=== PATIENT | female | born 1965 | race Two or more races ===

== ENCOUNTER 2020-01-20 17:35 | Inpatient (IN) | payer MEDICAID ==
[~2020-01-20] VITALS: Ht 160 cm; Wt 100.7 kg
--- NOTE | 2020-01-20 17:35 | NUR ---
PT BIB SELF C/O ABDOMINAL PAIN, NAUSEA/VOMITING. PT IS AAOX4, NOT IN RESPIRATORY DISTRESS, HOOKED TO EXTRUSION DIE TEMPLATE MAKER, KEPT RESTED AND COMFORTABLE. WILL CONTINUE TO MONITOR.
--- NOTE | 2020-01-20 17:45 | NUR ---
SEEN AND EXAMINED BY .
[2020-01-20] MEDS ORDERED: ONDANSETRON HCL/PF 4 MG/2 ML VIAL ONE (17:51)
--- NOTE | 2020-01-20 17:55 | NUR ---
IV LINE ESTABLISHED BLOOD DRAWN AND SENT TO LAB.
--- NOTE | 2020-01-20 17:58 | NUR ---
PAINT STRIPPER AT BEDSIDE FOR XRAY.
[2020-01-20] MEDS ORDERED: ONDANSETRON HCL/PF 4 MG/2 ML VIAL IVP ONE (18:00)
[2020-01-20] MEDS ORDERED: IV NS 0.9% 1,000 ML BAG IV ONE (18:00)
[2020-01-20 18:09] LABS: BASOPHILS % (AUTO) 0.7 % (0.0-2.0); EOSINOPHILS % (AUTO) 0.2 % (0.0-6.0); HEMATOCRIT 45 % (33-45); HEMOGLOBIN 15.5 g/dL (11.5-14.8); LYMPHOCYTES # (AUTO) 1.5 /CMM (0.8-4.8); LYMPHOCYTES % (AUTO) 31.2 % (20.0-44.0); MEAN CORPUSCULAR HGB CONC 35 g/dl (31.0-36.0); MEAN CORPUSCULAR VOLUME 87 fL (82-100); MONOCYTES # (AUTO) 0.6 /CMM (0.1-1.30); MONOCYTES % (AUTO) 12.4 % (2.0-12.0); NEUTROPHILS # (AUTO) 2.7 /CMM (1.8-8.9); NEUTROPHILS % (AUTO) 55.5 % (43.0-81.0); PLATELET COUNT (AUTO) 208 /CMM (150-450); WHITE BLOOD COUNT (AUTO) 4.9 K/uL (4.3-11.0)
[2020-01-20 18:17] LABS: ALBUMIN 3.6 g/dL (3.4-5.0); BILIRUBIN,DIRECT 0.4 mg/dL (0.0-0.2); BILIRUBIN,TOTAL 1.1 mg/dL (0.2-1.0); CALCIUM, SERUM 8.3 mg/dL (8.5-10.1); CREATININE 0.8 mg/dL (0.6-1.3); TOTAL PROTEIN, SERUM 8.1 g/dL (6.4-8.2)
[2020-01-20] MEDS ORDERED: METOPROLOL TARTRATE INJ 5 MG/5 ML AMPUL ONE (18:26)
[2020-01-20 18:27] LABS: POTASSIUM 2.4 mmol/L (3.5-5.1)
[2020-01-20] MEDS ORDERED: METOPROLOL TARTRATE INJ 5 MG/5 ML AMPUL IV ONE (18:30)
[2020-01-20] MEDS ORDERED: METO25TA20 PO (18:42)
[2020-01-20] MEDS ORDERED: LATA2.5D7 EACHEYE (18:42)
[2020-01-20] MEDS ORDERED: METF-440 PO (18:42)
[2020-01-20] MEDS ORDERED: HYDR200T4 PO (18:42)
[2020-01-20] MEDS ORDERED: OMEP40CA13 PO (18:42)
[2020-01-20] MEDS ORDERED: LEFL10TA16 PO (18:42)
[2020-01-20] MEDS ORDERED: SILD20TA2 PO (18:42)
--- NOTE | 2020-01-20 18:48 | NUR ---
called nursing supervisor wet end for tele bed.
[2020-01-20] MEDS ORDERED: POTASSIUM CHLORIDE 20 MEQ TAB.PRT.SR PO ONE ×3 (18:53→23:00)
[2020-01-20] MEDS ORDERED: METOPROLOL TARTRATE 25 MG TABLET ONE (18:53)
[2020-01-20] MEDS ORDERED: METOPROLOL TARTRATE 25 MG TABLET PO ONE (19:00)
--- NOTE | 2020-01-20 19:08 | NUR ---
REPORT GIVEN TO MASOOD CAMACHO FOR TERRI.
--- NOTE | 2020-01-20 19:21 | NUR ---
PT RESTING COMFORTABLY. VSS. NO ACUTE DISTRES NOTED. PROVIDED WITH BLANKET.
[2020-01-20 19:40] LABS: THYROID STIMULATING HORMONE 2.157 uIU/mL (0.358-3.74)
--- NOTE | 2020-01-20 19:47 | NUR ---
PT DENIES PAIN. RESTING COMFORTABLY.
--- NOTE | 2020-01-20 19:54 | NUR ---
BED ASSIGNMENT 102
--- NOTE | 2020-01-20 20:14 | NUR ---
REC'D POS COVID RESULTS BY POLO FROM LAB
--- NOTE | 2020-01-20 20:27 | NUR ---
REPORT GIVEN FOR TERRI
--- NOTE | 2020-01-20 20:53 | NUR ---
DR. PADILLA SPEAKING WITH HOSPITALIST
[2020-01-20 21:00] VITALS: BP 109/63
--- NOTE | 2020-01-20 21:00 | NUR ---
TELE/RN NEW ADMISSION NOTES RECEIVED PATIENT IS A 54 Y.O OBESE MALAWIAN SPEAKING FEMALE PATIENT, ALERT, ORIENTED X3, OBSERVED WITH LABORED BRETHING AND TELE MONITOR UNCONTROLLED AFIB WITH MURMUR, PATIENT ABLE TO VERBALIZE NEEDS, ABLE TO GO TO BATHROOM WITH ASSISTANCE, ON OXYGEN VIA NC AT 2 LITER, WITH DX FOR COVID POSITIVE, HAD NAUSEA AND VOMITING AND HYPOKALEMIA, ON CONTACT ISOLATION FOR COVID POSITIVE RESULT, AWAITING FOR ORDER, HOME MEDICATION TO BE RECONCILED, PATIENT BELONGINGS CHECK, SKIN INTACT, VITAL SIGNS CHECK AND WITH NO FEVER, PATIENT NOT HAVING NAUSEA AND VOMITING AT THIS TIME, ABLE TO USE PHONE AND TALK WITH FAMILY MEMBERS. ROOM ORIENTATION PROVIDED, MALAWIAN PREFERED LANGUAGE. BED LOCKED, CALL LIGHTS WITHIN REACH. TO MONITOR.
--- NOTE | 2020-01-20 21:05 | NUR ---
MS/RN NOTES ADMITTING MD JAMA SURESH FOR ADMISSION ORDERS.
--- NOTE | 2020-01-20 21:05 | NUR ---
TELE/RN NOTES IV SITE ON RIGHT WRIST GAUGE 18 PATENT , ABLE TO FLUSH.
--- NOTE | 2020-01-20 21:07 | NUR ---
PT TRANSFERED PER ACLS PROTOCOL
[2020-01-20 21:18] VITALS: BP 138/87
[2020-01-20 22:13] VITALS: BP 138/87
[2020-01-20] MEDS ORDERED: ZOLPIDEM TARTRATE 5 MG TABLET PO PRN (23:00)
[2020-01-20] MEDS ORDERED: Z GUARD REMEDY 2 OZ OINT TP PRN (23:00)
[2020-01-20] MEDS ORDERED: ENOXAPARIN SODIUM 40 MG/0.4 ML DISP.SYRIN SQ SCH (23:00)
[2020-01-20] MEDS ORDERED: ALBUTEROL SULFATE 8 GM HFA.AER.AD IH PRN (23:00)
[2020-01-20] MEDS ORDERED: ONDANSETRON 4 MG TAB.RAPDIS SL PRN (23:00)
[2020-01-20] MEDS ORDERED: ACETAMINOPHEN 325 MG TABLET PO PRN (23:00)
[2020-01-20] MEDS ORDERED: HYDROCODONE/APAP 5/325MG 1 EACH TABLET PO PRN (23:00)
[2020-01-20] MEDS: ZINC SULFATE 220 MG CAPSULE PO SCH (23:28)
[2020-01-21] VITALS: BP 118/65
--- NOTE | 2020-01-21 | NUR ---
ms/rn notes MD SURESH MADE AWARE REGADING IV 20 MEQ POTASSIUM IV AVAILABLE , INSTEAD OF 40 MEQ IV POTASSIUM IN 1 LITER BAG, TO ADMINISTER FOR NOW. PATIENT ALSO VERBALZIED THAT SHE HAS RHEUMATOID ARTHRITIS RECEIVING CARE UNDER DR. VIV DIEHL AND BORDERLINE DIABETIC WITH METFORMIN DAILY.
[2020-01-21] MEDS: DEXAMETHASONE SOD PHOSPHATE 10 MG/ML VIAL IV SCH ×2 (00:01→23:01)
[2020-01-21] MEDS ORDERED: IV PREMIX NS +20MEQ KCL 1 L IV ONE (01:00)
[2020-01-21] MEDS ORDERED: Potassium Chloride 20 MEQ in IV NS 0.9% 1,000 ML IV PRN (01:00)
[2020-01-21] MEDS ORDERED: ACETAMINOPHEN 325 MG TABLET PO PRN (01:00)
[2020-01-21 04:00] VITALS: BP 114/78
--- NOTE | 2020-01-21 06:17 | NUR ---
102-TELE/RN NOTES PATIENT IN BED, ALERT X3, GUYANESE SPEAKING, SLEPT FEW HOURS, COMPLIANT WITH CARE. ATTENDED ALL NEEDS, KEPT COMFORTABLE, ON IV FLUID WITH POTASSIUM, RESPIRATIONS EVEN AND UNLABORED, BED LOCKED, CALL LIGHTS WITHIN REACH. TELE AFIB.WILL ENDORSE TO AM RN FOR TERRI.
[2020-01-21 06:50] LABS: BASOPHILS % (AUTO) 0.1 % (0.0-2.0); HEMATOCRIT 43 % (33-45); HEMOGLOBIN 14.5 g/dL (11.5-14.8); LYMPHOCYTES # (AUTO) 0.8 /CMM (0.8-4.8); LYMPHOCYTES % (AUTO) 19.6 % (20.0-44.0); MEAN CORPUSCULAR HGB CONC 34 g/dl (31.0-36.0); MEAN CORPUSCULAR VOLUME 88 fL (82-100); MONOCYTES # (AUTO) 0.2 /CMM (0.1-1.30); MONOCYTES % (AUTO) 4.1 % (2.0-12.0); NEUTROPHILS # (AUTO) 2.9 /CMM (1.8-8.9); NEUTROPHILS % (AUTO) 76.2 % (43.0-81.0); PLATELET COUNT (AUTO) 197 /CMM (150-450); RED BLOOD CELL COUNT(AUTO) 4.84 MIL/uL (4.0-5.2); WHITE BLOOD COUNT (AUTO) 3.9 K/uL (4.3-11.0)
[2020-01-21 06:57] LABS: C-REACTIVE PROTEIN 2.5 mg/dL (0.0-0.9)
[2020-01-21 07:03] LABS: ALBUMIN 3.4 g/dL (3.4-5.0); BILIRUBIN,TOTAL 0.8 mg/dL (0.2-1.0); CALCIUM, SERUM 8.2 mg/dL (8.5-10.1); CREATININE 0.6 mg/dL (0.6-1.3); PHOSPHORUS 2.8 mg/dL (2.5-4.9); POTASSIUM 3.3 mmol/L (3.5-5.1); TOTAL PROTEIN, SERUM 7.8 g/dL (6.4-8.2)
--- NOTE | 2020-01-21 07:30 | NUR ---
RN OPENING NOTES RECEIVED PATIENT IN BED, A/OX4. EMIRATI AND ETHIOPIAN SPEAKER, SWITCHED HER ON RA, TOLERATING WELL WITH O2 SAT OF 96%, NO SOB, PAIN, OR RESP DISTRESS NOTED. REDDENS ON ABDOMEN AND LEGS NOTED, PATIENT IS AMBULATORY W/ASSISTANCE, IV R HAND NOTED, INTACT AND PATENT. SAFETY MEASURES IMPLEMENTED, CALL LIGHT IN REACH, BED IN LOWEST POSITION, WILL CONT TO MONITOR
[2020-01-21] MEDS: PANTOPRAZOLE 40 MG TABLET.DR PO SCH (07:50)
[2020-01-21 08:00] VITALS: BP 127/86
[2020-01-21 08:28] LABS: THYROID STIMULATING HORMONE 0.692 uIU/mL (0.358-3.74)
[2020-01-21] MEDS: METOPROLOL TARTRATE 25 MG TABLET PO SCH ×2 (08:30→17:24)
[2020-01-21] MEDS: ASPIRIN EC 81 MG TABLET.DR PO SCH (08:31)
[2020-01-21] MEDS: ZINC SULFATE 220 MG CAPSULE PO SCH (08:31)
[2020-01-21] MEDS: HYDROXYCHLOROQUINE 200 MG TABLET PO SCH ×2 (08:31→17:24)
[2020-01-21] MEDS: SILDENAFIL CITRATE 20 MG TABLET PO SCH ×2 (08:34→21:19)
[2020-01-21] MEDS ORDERED: LEFLUNOMIDE 10 MG TABLET PO SCH ×2 (09:00→10:00)
[2020-01-21] MEDS: LEFLUNOMIDE 10 MG TABLET PO SCH (10:05)
[2020-01-21] MEDS ORDERED: DEXTROSE 50%-WATER 50 ML DISP.SYRIN IV PRN (11:00)
[2020-01-21] MEDS: DILTIAZEM HCL CD 240 MG PO SCH (11:39)
[2020-01-21] MEDS: ENOXAPARIN SODIUM 100 MG/ML DISP.SYRIN SQ SCH ×2 (11:40→22:36)
[2020-01-21] MEDS: BLOOD SUGAR DIAGNOSTIC 1 EACH STRIP IN SCH ×3 (11:41→22:00)
[2020-01-21 12:00] VITALS: BP 116/66
[2020-01-21] MEDS: INSULIN REGULAR, HUMAN 100 UNIT/ML 3 ML VIAL SQ PRN ×2 (12:47→22:46)
[2020-01-21] MEDS: Potassium Chloride 40 MEQ in IV NS 0.9% 1,000 ML IV PRN (15:53)
[2020-01-21 16:00] VITALS: BP_SYST 91; BP_DIAS 43; BP_DIAS 73
[2020-01-21] MEDS ORDERED: RIVAROXABAN 10 MG TABLET PO SCH (17:00)
--- NOTE | 2020-01-21 17:26 | NUR ---
no Reviato meds in Pyxis, Pharmacy notified
[2020-01-21] MEDS ORDERED: LATANOPROST EYE DROP 0.005% 2.5 ML BOTTLE EACHEYE SCH (18:00)
--- NOTE | 2020-01-21 18:25 | NUR ---
RN CLOSING NOTES PATIENT REMAINS IN ROOM ON ROOM AIR, SATURATING 96%, NO SOB OR RESP DISTRESS NOTED, IN BED, IV POTASSIUM IS RUINING @100 CC/HR, TOLERATING WELL, INTACT AND PATENT, COMFORT NEEDS ARE MET, ALL MEDS GIVEN, BED IN LOWEST POSITION, CALL LIGHT IN REACH, WILL ENDORSE TO PM SHIFT FOR TERRI
[2020-01-21 20:00] VITALS: BP 107/65
[2020-01-22] VITALS: BP 100/66
[2020-01-22 00:36] LABS: C-REACTIVE PROTEIN 2.9 mg/dL (0.0-0.9)
[2020-01-22] MEDS: Potassium Chloride 40 MEQ in IV NS 0.9% 1,000 ML IV PRN (02:50)
[2020-01-22 04:00] VITALS: BP 98/46
--- NOTE | 2020-01-22 05:54 | NUR ---
RN notes Alert and oriented, marshallese speaking but understand faroese. Resting comfortably in bed. Requested oxygen supplement at about 00:00, O2sat at 92% on room air. Increased to 96% after application of nasal cannula at 3lpm. Tylenol given for neck pain with relief. Kept clean and dry. Will endorse to next shift for continuity of care.
[2020-01-22 06:28] LABS: HEMATOCRIT 41 % (33-45); HEMOGLOBIN 13.5 g/dL (11.5-14.8); LYMPHOCYTES % (AUTO) 19.3 % (20.0-44.0); MEAN CORPUSCULAR HGB CONC 33 g/dl (31.0-36.0); MEAN CORPUSCULAR VOLUME 90 fL (82-100); MONOCYTES # (AUTO) 0.1 /CMM (0.1-1.30); MONOCYTES % (AUTO) 2.6 % (2.0-12.0); NEUTROPHILS # (AUTO) 3.9 /CMM (1.8-8.9); NEUTROPHILS % (AUTO) 78.1 % (43.0-81.0); PLATELET COUNT (AUTO) 204 /CMM (150-450); RED BLOOD CELL COUNT(AUTO) 4.51 MIL/uL (4.0-5.2)
[2020-01-22 06:43] LABS: CALCIUM, SERUM 7.9 mg/dL (8.5-10.1); CREATININE 0.7 mg/dL (0.6-1.3); MAGNESIUM 1.9 mg/dL (1.8-2.4); PHOSPHORUS 2.9 mg/dL (2.5-4.9); POTASSIUM 4.3 mmol/L (3.5-5.1)
--- NOTE | 2020-01-22 07:30 | NUR ---
RN OPENING NOTES PATIENT PRESENT AT BED SITE, A/OX4, WATCHING TV, DENIES PAIN OR DISCOMFORT. RECEIVING O2 VIA NC @2L; SATURATING 98%, IV LINE ON R HAND NOTED, INTACT AND PATENT, SKIN IS INTACT, PATIENT IS AMBULATORY W/ASSISTANCE. SAFETY MEASURES IMPLEMENTED, BE IN LOWEST POSITION, CALL LIGHT IN REACH, WILL CONT TO MONITOR
[2020-01-22] MEDS: BLOOD SUGAR DIAGNOSTIC 1 EACH STRIP IN SCH ×2 (07:35→12:44)
[2020-01-22] MEDS: PANTOPRAZOLE 40 MG TABLET.DR PO SCH (07:35)
[2020-01-22] MEDS: INSULIN REGULAR, HUMAN 100 UNIT/ML 3 ML VIAL SQ PRN (07:56)
[2020-01-22 08:00] VITALS: BP 160/86
[2020-01-22] MEDS: HYDROXYCHLOROQUINE 200 MG TABLET PO SCH (08:39)
[2020-01-22] MEDS: ASPIRIN EC 81 MG TABLET.DR PO SCH (08:39)
[2020-01-22] MEDS: METOPROLOL TARTRATE 25 MG TABLET PO SCH (08:40)
[2020-01-22] MEDS: SILDENAFIL CITRATE 20 MG TABLET PO SCH (08:40)
[2020-01-22] MEDS: DILTIAZEM HCL CD 240 MG PO SCH (08:40)
[2020-01-22] MEDS: ZINC SULFATE 220 MG CAPSULE PO SCH (08:40)
[2020-01-22] MEDS: LEFLUNOMIDE 10 MG TABLET PO SCH (08:43)
[2020-01-22] MEDS ORDERED: GUAIFENESIN/D-METHORPHAN HB 5 ML UDC PO PRN (09:00)
[2020-01-22] MEDS ORDERED: DEXA6TAB6 PO (09:42)
[2020-01-22] MEDS ORDERED: ENOX100D SQ (09:42)
[2020-01-22] MEDS ORDERED: GUAI600T53 PO (09:42)
[2020-01-22] MEDS ORDERED: DILT240C88 PO (09:42)
[2020-01-22] MEDS ORDERED: ASPI-1152 PO (09:42)
[2020-01-22] MEDS: ENOXAPARIN SODIUM 100 MG/ML DISP.SYRIN SQ SCH (10:27)
[2020-01-22 12:00] VITALS: BP 118/84
--- NOTE | 2020-01-22 14:00 | NUR ---
patient discharged, IV line removed, ID band removed, discharge paperwork provided, picked up by son
[2020-01-22] MEDS ORDERED: RIVAROXABAN 10 MG TABLET PO SCH ×2 (17:00→21:00)
== END 2020-01-22 14:19 | disposition home or self-care (01) | DRG 201 ==
LOC: ER 17:40 → TELE1 20:15
PROVIDERS: ADMIT Nurse Practitioner Acute Care; ATTEND Student in an Organized Health Care Education/Training Program
DX: I48.91 Unspecified atrial fibrillation (principal); U07.1 COVID-19; I21.A1 Myocardial infarction type 2; E87.6 Hypokalemia; D68.59 Other primary thrombophilia; Z79.84 Long term (current) use of oral hypoglycemic drugs; Z79.899 Other long term (current) drug therapy; E80.6 Other disorders of bilirubin metabolism; R74.0 Nonspecific elevation of levels of transaminase and lactic acid dehydrogenase [LDH]; M06.9 Rheumatoid arthritis, unspecified; I27.0 Primary pulmonary hypertension; I37.8 Other nonrheumatic pulmonary valve disorders; J98.11 Atelectasis; R73.03 Prediabetes
CPT/HCPCS: 36415; 71045-TC; 80048-TC; 80053-TC; 80061-TC; 80076-TC; 82728-TC; 82962-TC; 83615-TC; 83690-TC; 83735-TC; 84100-TC; 84439-TC; 84443-TC; 84484-TC; 85025-TC; 85378-TC; 86140-TC; 87081-TC; 93308-TC; A4217; G0378; J1100; J1650; J1815; J2405; J3480; J3490; J7030

== ENCOUNTER 2022-09-12 13:32 | Inpatient (IN) | payer MEDICAID ==
[~2022-09-12] VITALS: Ht 167.6 cm; Wt 104.3 kg
[~2022-09-12 13:32] MED LIST: ASPI-1420 PO; DEXA6TAB6 PO; DILT240C88 PO; ENOX100D SQ; GUAI600T53 PO; HYDR200T4 PO; LATA2.5D15 EACHEYE; LEFL10TA16 PO; METF-440 PO; METO25TA20 PO; OMEP40CA21 PO; SILD20TA2 PO
--- NOTE | 2022-09-12 13:50 | NUR ---
BIBS C/O SOB FROM COUGH AND CONGESTION X 1 WEEK. AMBULATORY, PLACED IN BED, AAOX4, DYSPNEIC RR- 21 SATURATING AT 94%RA.
--- NOTE | 2022-09-12 14:13 | NUR ---
SWAB FOR COVID19 AND RAPID INFLUENZA SENT TO LAB
[2022-09-12] MEDS ORDERED: predniSONE 20 MG TABLET ONE (14:16)
--- NOTE | 2022-09-12 14:22 | NUR ---
BLOOD DRAWN AND SENT TO LAB
[2022-09-12] MEDS ORDERED: IPRATROPIUM NEB FS 0.5 MG/2.5 ML AMPUL.NEB ONE (14:26)
[2022-09-12] MEDS ORDERED: ALBUTEROL FS 2.5 MG/3 ML VIAL.NEB ONE (14:26)
[2022-09-12] MEDS ORDERED: ALBUTEROL FS 2.5 MG/3 ML VIAL.NEB NEB ONE (14:30)
[2022-09-12] MEDS ORDERED: IPRATROPIUM NEB FS 0.5 MG/2.5 ML AMPUL.NEB NEB ONE (14:30)
[2022-09-12] MEDS ORDERED: predniSONE 20 MG TABLET PO ONE (14:30)
[2022-09-12 14:43] LABS: BASOPHILS % (AUTO) 0.4 % (0.0-2.0); HEMATOCRIT 37 % (33-45); LYMPHOCYTES # (AUTO) 0.6 K/uL (0.8-4.8); LYMPHOCYTES % (AUTO) 9.8 % (20.0-44.0); MEAN CORPUSCULAR HGB CONC 33 g/dl (31.0-36.0); MEAN CORPUSCULAR VOLUME 82 fL (82-100); MONOCYTES # (AUTO) 0.6 K/uL (0.1-1.30); MONOCYTES % (AUTO) 8.6 % (2.0-12.0); NEUTROPHILS # (AUTO) 5.2 K/uL (1.8-8.9); NEUTROPHILS % (AUTO) 80.2 % (43.0-81.0); PLATELET COUNT (AUTO) 194 K/uL (150-450); RED BLOOD CELL COUNT(AUTO) 4.53 MIL/uL (4.0-5.2); WHITE BLOOD COUNT (AUTO) 6.5 K/uL (4.3-11.0)
[2022-09-12 14:56] LABS: CALCIUM, SERUM 8.4 mg/dL (8.5-10.1); CARBON DIOXIDE 27 mmol/L (21-32); CHLORIDE 104 mmol/L (98-107); CREATININE 0.6 mg/dL (0.6-1.3); GLUCOSE 109 mg/dL (74-106); POTASSIUM 3.3 mmol/L (3.5-5.1); SODIUM SERUM 141 mmol/L (136-145); UREA NITROGEN, BLOOD 13 mg/dL (7-18)
--- NOTE | 2022-09-12 15:10 | NUR ---
RECEIVED A CALL FROM THE LAB. TROPONIN IS 192. WAS MADE AWARE
[2022-09-12 15:12] LABS: ALANINE AMINOTRANSFERASE 28 U/L (12-78); ALBUMIN 3.5 g/dL (3.4-5.0); ALKALINE PHOSPHATASE 141 U/L (46-116); ASPARTATE AMINOTRANSFERASE 26 U/L (15-37); TOTAL PROTEIN, SERUM 7.7 g/dL (6.4-8.2)
--- NOTE | 2022-09-12 15:38 | NUR ---
MOVE SHEET SUBMITTED.
[2022-09-12 15:45] LABS: BILIRUBIN,DIRECT 0.3 mg/dL (0.0-0.2); BILIRUBIN,TOTAL 0.7 mg/dL (0.2-1.0)
[2022-09-12] MEDS ORDERED: ASPIRIN 325 MG TABLET PO ONE (16:00)
[2022-09-12] MEDS ORDERED: CEFTRIAXONE 1GM BAG (ER ONLY) 50 ML IV ONE ×2 (16:00→16:09)
[2022-09-12] MEDS ORDERED: AZITHROMYCIN 500 MG in IV D5W 250 ML IV ONE (16:00)
[2022-09-12] MEDS ORDERED: AZITHROMYCIN 500 MG VIAL ONE (16:09)
[2022-09-12] MEDS ORDERED: ASPIRIN 325 MG TABLET ONE (16:10)
[2022-09-12] MEDS ORDERED: KETO5DRO39 LEFTEYE (16:57)
[2022-09-12] MEDS ORDERED: LORA10TA7 PO (16:57)
[2022-09-12] MEDS ORDERED: FURO20TA4 PO (16:57)
[2022-09-12] MEDS ORDERED: CYCL5TAB PO (16:57)
[2022-09-12] MEDS ORDERED: RIVA10TA PO (16:57)
[2022-09-12] MEDS ORDERED: PRED5TAB PO (16:57)
[2022-09-12] MEDS ORDERED: FLUT16SP (16:57)
[2022-09-12] MEDS ORDERED: Z GUARD REMEDY 4 OZ OINT TP PRN (17:30)
[2022-09-12] MEDS ORDERED: POTASSIUM CHLORIDE 20 MEQ TAB.PRT.SR PO ONE ×2 (17:30→21:21)
[2022-09-12] MEDS ORDERED: LORATADINE 10 MG TABLET PO PRN (17:30)
[2022-09-12] MEDS ORDERED: METOPROLOL TARTRATE INJ 5 MG/5 ML AMPUL IV ONE (17:30)
[2022-09-12] MEDS ORDERED: ONDANSETRON HCL/PF 4 MG/2 ML VIAL IVP PRN (17:30)
[2022-09-12] MEDS ORDERED: HYDROCODONE/APAP 5/325MG TABLET PO PRN (17:30)
[2022-09-12] MEDS ORDERED: ACETAMINOPHEN 325 MG TABLET PO PRN (17:30)
[2022-09-12] MEDS ORDERED: MAGNESIUM HYDROXIDE 30 ML UDC PO PRN (17:30)
[2022-09-12] MEDS ORDERED: FLUTICASONE PROPIONATE 16 GM BOTTLE NS PRN (17:30)
[2022-09-12] MEDS ORDERED: FUROSEMIDE 40 MG/4 ML VIAL IV ONE (17:30)
[2022-09-12 18:06] LABS: BILIRUBIN,URINE NEGATIVE (NEGATIVE); COLOR,URINE YELLOW (YELLOW); LEUKOCYTE ESTERASE ,URINE NEGATIVE (NEGATIVE); NITRITE, URINE NEGATIVE (NEGATIVE); PROTEIN,URINE NEGATIVE (NEGATIVE); UGLUCOSE NEGATIVE (NEGATIVE)
[2022-09-12 18:20] LABS: BACTERIA,URINE Few /HPF (None Seen); SQUAMOUS EPITHELIAL CELL,UR Few /HPF (None Seen)
[2022-09-12] MEDS ORDERED: CYCLOBENZAPRINE 10 MG TABLET PO PRN (18:30)
--- NOTE | 2022-09-12 18:48 | NUR ---
RECEIVED A CALL FROM THE LAB. TROPONIN OF 202. WAS MADE AWARE
--- NOTE | 2022-09-12 19:49 | NUR ---
RM [id number]
--- NOTE | 2022-09-12 20:14 | NUR ---
REPORT GIVEN TO MOE RN ROOM 304 FOR TERRI
[2022-09-12 20:30] VITALS: BP 154/90
--- NOTE | 2022-09-12 20:37 | NUR ---
TRANSFERRED TO ROOM VIA ACLS PROTOCOL
[2022-09-12] MEDS ORDERED: FUROSEMIDE 40 MG/4 ML VIAL ONE (21:21)
[2022-09-12] MEDS: RIVAROXABAN 10 MG TABLET PO SCH (21:28)
[2022-09-12] MEDS: METOPROLOL TARTRATE 50 MG TABLET PO SCH (21:39)
--- NOTE | 2022-09-12 22:50 | NUR ---
OFF PREMISE SERVICE REPRESENTATIVE ADMISSION NOTES ADMITTED A 57 YEARS OLD FEMALE, CAME FROM THE EMERGENCY ROOM VIA GURNEY. PATIENT IS A/O X 4 ABLE TO VERBALIZED NEEDS. ITALIAN SPEAKING , HOOKED TO OXYGEN VIA NASAL CANNULA AT 3LPM BREATHING EVENLY AND UNLABORED. WITH IV ACCESS AT RAC #20G ON SL, PATENT AND INTACT. TRANSFERRED TO BED SAFELY AND SECURED. ATTACHED TO TELE MONITORING DEVICE WITH INITIAL READING OF 127 AFIB. NO SIGNS AND SYMPTOMS OF CHEST PAIN OR ANY DISCOMFORT AT THIS TIME. WITH VITAL SIGNS OF BP: 155/85, WA:127, SpO2:95%, TEMP:97.8, RR:22. SKIN ASSESSMENT PERFORMED, SKIN WAS CLEAN/DRY/INTACT, NO EDEMA NOTED. BOWEL SOUNDS ARE ACTIVE. PHYSICAL ASSESSMENT PERFORMED AND RECORDED. HISTORY TAKEN AND RECORDED.BELONGINGS ACCOUNTED FOR. PATIENT ORIENTED TO ROOM AND UNIT POLICY, PATIENT VERBALIZED UNDERSTANDING. KEPT PATIENT WARM AND COMFORTABLE.KEPT BED ON LOWER LOCKED POSITION. KEPT SIDE RAILS X 3 UP ALL THE TIME. WILL CONTINUE TO MONITOR
[2022-09-13] VITALS (8 sets, daily range): BP systolic 102–136; BP diastolic 13–103
[2022-09-13 05:40] LABS: BASOPHILS % (AUTO) 0.2 % (0.0-2.0); EOSINOPHILS % (AUTO) 0.2 % (0.0-6.0); HEMATOCRIT 37 % (33-45); LYMPHOCYTES % (AUTO) 16.6 % (20.0-44.0); MEAN CORPUSCULAR HGB CONC 32 g/dl (31.0-36.0); MEAN CORPUSCULAR VOLUME 83 fL (82-100); MONOCYTES # (AUTO) 0.7 K/uL (0.1-1.30); MONOCYTES % (AUTO) 11.7 % (2.0-12.0); NEUTROPHILS # (AUTO) 4.2 K/uL (1.8-8.9); NEUTROPHILS % (AUTO) 71.3 % (43.0-81.0); PLATELET COUNT (AUTO) 207 K/uL (150-450); WHITE BLOOD COUNT (AUTO) 5.8 K/uL (4.3-11.0)
[2022-09-13 05:54] LABS: CREATININE 0.5 mg/dL (0.6-1.3); MAGNESIUM 1.9 mg/dL (1.8-2.4); PHOSPHORUS 4.6 mg/dL (2.5-4.9); POTASSIUM 3.8 mmol/L (3.5-5.1)
[2022-09-13 06:05] LABS: THYROID STIMULATING HORMONE 0.725 uIU/mL (0.358-3.74)
--- NOTE | 2022-09-13 06:15 | NUR ---
SPOT WASHER NOTES UPON ASSESSMENT. PATIENT HAVE A WHEEZES AND DRY COUGH. NO BREATHING TREATMENT AVAILABLE. DR. SCHMITT INFORMED. PATIENT IS HOOKED TO OXYGEB VIA NC AT 3LPM SATURATING AT 95%-97%. PLACED ON HIGH BACK REST POSITION.WILL CONTINUE TO MONITOR
--- NOTE | 2022-09-13 06:21 | NUR ---
FRAME RUNNER CLOSING NOTES PATIENT IS IN BED. AWAKE AND COHERENT. A/O X 4 PORTUGUESE SPEAKING ABLE TO VERBALIZED CONCERNS. ON HIGH BACK REST POSITION. HOOKED TO OXYGEN VIA NASAL CANNULA AT 3LPM SATURATING AT 95%,WITH IV ACCESS AT RAC #20G PATENT AND INTACT ON SL. ATTACHED TO TELE MONITORING DEVICE WITH READING OF CONTROLLED A-FIB AT 85'S WITH EPISODES OF PVCS. PATIENT IS ON BED REST. NO SIGNS OF PAIN OR DISCOMFORT AT THIS TIME. NO CHEST PAIN NOTED. KEPT PATIENT WARM AND COMFORTABLE. ALL DUE MEDICATIONS GIVEN AND ALL NEEDS ATTENDED. SAFETY MEASURES MAINTAINED.FOR STRICT INTAKE AND OUTPUT MONITORING. KEPT BED ON LOWER LOCKED POSITION. KEPT SIDE RAILS X 3 ALL THE TIME. WILL CONTINUE TO MONITOR.
--- NOTE | 2022-09-13 07:00 | NUR ---
FINISHING POWDER PRESS OPERATOR OPENING NOTES: RECEIVED PATIENT IN BED AWAKE, ALERT AND ORIENTED X 4 AND ABLE TO VERBALIZED NEEDS. ON O2 INHALATION @3LPM VIA NASAL CANNULA. ON TEACHER THEATER ARTS WITH CURRENT READING : A FIB CONTROLLED PULSE @86BPM. ON BED REST FOR NOW. HEAD OF BED ELEVATED. IV ACCESS ON RAC GAUGE 20 PATENT, INTACT AND SALINE LOCKED. SAFETY MEASURES MAINTAINED: BED LOCKED AND IN LOWEST POSITION, SIDE RAILS UP X 2. CALL LIGHT IN EASY REACH FOR HELP AND ASSISTANCE. WILL MONITOR PATEIENT ACCORDINGLY.
[2022-09-13] MEDS: PANTOPRAZOLE 40 MG TABLET.DR PO SCH (07:28)
[2022-09-13] MEDS: METFORMIN 500 MG TABLET PO SCH ×2 (07:28→17:09)
[2022-09-13] MEDS: predniSONE 5 MG TABLET PO SCH (08:08)
[2022-09-13] MEDS: METOPROLOL TARTRATE 50 MG TABLET PO SCH ×2 (08:09→20:33)
[2022-09-13] MEDS: DOXYCYCLINE HYCLATE (100 MG) 100 MG TABLET PO SCH ×2 (08:09→20:32)
[2022-09-13] MEDS: ASPIRIN 81 MG TAB.CHEW PO SCH (08:12)
[2022-09-13] MEDS: KETOROLAC EYE 0.5% 3 ML BOTTLE LEFTEYE SCH ×5 (08:51→21:16)
[2022-09-13] MEDS ORDERED: HYDROXYCHLOROQUINE 200 MG TABLET PO SCH (09:00)
--- NOTE | 2022-09-13 09:00 | NUR ---
RN NOTES: PT NOTED WITH WHEEZING, HEAD OF BED ELEVATED. THICK CLEAR PHLEGM NOTED. INFORMED DR DUNCAN AND PENDING RESPONSE. WILL FOLLOW UP.
[2022-09-13] MEDS: POTASSIUM CHLORIDE 20 MEQ TAB.PRT.SR PO SCH ×3 (09:44→12:10)
[2022-09-13] MEDS: DILTIAZEM HCL CD 240 MG PO SCH (09:45)
[2022-09-13] MEDS: FUROSEMIDE 100 MG/10 ML VIAL IV SCH ×3 (09:45→17:09)
[2022-09-13] MEDS: SILDENAFIL CITRATE 20 MG TABLET PO SCH ×2 (12:11→16:30)
[2022-09-13] MEDS: GUAIFENESIN/D-METHORPHAN HB 5 ML UDC PO PRN ×2 (13:20→13:21)
[2022-09-13] MEDS: GUAIFENESIN LA 600 MG TABLET.SA PO SCH ×2 (13:21→20:32)
[2022-09-13] MEDS ORDERED: ALBUTEROL HALF STRENGTH 1.25 MG/3 ML VIAL.NEB NEB SCH (13:30)
[2022-09-13] MEDS: CEFTRIAXONE 1 G in IV D5W 50 ML IV SCH (15:31)
--- NOTE | 2022-09-13 17:00 | NUR ---
RN NOTES: CALLED PHARMACIST, I FOLLOWED UP LATANOPROST EYE DROPS, RN SAID ITS NOT IN THE CASSETTE, IN THE FRIDGE AND OR IN PT'S BED SIDE. PER PHARMACIST "WE WILL DELIVER LATER". WILL CONTINUE TO FOLLOW UP.
[2022-09-13] MEDS: RIVAROXABAN 10 MG TABLET PO SCH (17:10)
[2022-09-13] MEDS: LATANOPROST EYE DROP 0.005% 2.5 ML BOTTLE EACHEYE SCH (17:33)
--- NOTE | 2022-09-13 18:44 | NUR ---
MATH AND SCIENCE INSTRUCTOR CLOSING NOTES: PT IN BED AWAKE. ALERT AND ORIENTED X 4 , ENGLISH SPEAKER ABLE TO VERBALIZED NEEDS. (+) WHEEZING- PT VERBALIZED RELIEF AFTER THE COUGH SYRUP. ON O2 INHALATION 2 3LPM VIA NC. PT STILL NOTED WITH EPISODES OF COUGHING. ON CARDIAC RN: WITH CURRENT READING OF A FIB CONTROLLED @95 BPM. IV ACCESS ON RAC GAUGE 20 PATENT, INTACT AND SALINE LOCKED. SAFETY MEASURES MAINTAINED: BED LOCKED AND IN LOWEST POSITION, SIDE RAILS UP X 2. CALL LIGHT IN EASY REACH FOR HELP. WILL MONITOR PT ACCORDINGLY. ENDORSED TO GLASSWARE SELECTOR RN FOR CONTINUITY OF CARE.
--- NOTE | 2022-09-13 19:00 | NUR ---
RN OPENING NOTES PT IS AWAKE, A/O X 4, ABLE TO MAKE NEEDS KNOWN. PT ON 02 INHALATION VIA NASAL CANNULA O2 @3LPM, TOLERATING WELL, BREATHING EVEN AND UNLABORED @ THIS TIME. PT IV ACCESS PRESENT ON RIGHT AC #20G, PATENT, INTACT, FLUSHES WELL WITH NO S & SX OF INFILTRATION @ SITE NOTED. PT IS AMBULATORY AND WALKS INDEPENDENTLY TO THE BATHROOM. PT HAS A SUPERVISOR SULFURIC ACID PLANT IN PLACE WITH A CURRENT READING OF A. FIB CONTROLLED, HR OF 95 BPM. SAFETY MEASURES IN PLACE WITH BED AT ITS LOWEST & LOCKED POSITION, SIDE RAILS UP X 2, BEDSIDE TABLE & CALL LIGHT IS EASY REACH. BED ALARM IS ON. WILL CONTINUE TO MONITOR PT ACCORDINGLY.
[2022-09-13] MEDS: ALBUTEROL HALF STRENGTH 1.25 MG/3 ML VIAL.NEB NEB SCH (22:55)
[2022-09-13] MEDS: IPRATROPIUM NEB FS 0.5 MG/2.5 ML AMPUL.NEB NEB SCH (22:56)
[2022-09-14] VITALS (8 sets, daily range): BP systolic 107–123; BP diastolic 44–78
[2022-09-14] MEDS: IPRATROPIUM NEB FS 0.5 MG/2.5 ML AMPUL.NEB NEB SCH ×4 (01:56→23:30)
[2022-09-14 06:04] LABS: BASOPHILS % (AUTO) 0.2 % (0.0-2.0); EOSINOPHILS % (AUTO) 2.2 % (0.0-6.0); HEMATOCRIT 39 % (33-45); HEMOGLOBIN 12.6 g/dL (11.5-14.8); LYMPHOCYTES # (AUTO) 1.6 K/uL (0.8-4.8); LYMPHOCYTES % (AUTO) 27.2 % (20.0-44.0); MEAN CORPUSCULAR HGB CONC 32 g/dl (31.0-36.0); MEAN CORPUSCULAR VOLUME 83 fL (82-100); MONOCYTES # (AUTO) 0.7 K/uL (0.1-1.30); NEUTROPHILS # (AUTO) 3.6 K/uL (1.8-8.9); NEUTROPHILS % (AUTO) 59.4 % (43.0-81.0); PLATELET COUNT (AUTO) 219 K/uL (150-450); RED BLOOD CELL COUNT(AUTO) 4.72 MIL/uL (4.0-5.2)
[2022-09-14 06:31] LABS: ALBUMIN 3.4 g/dL (3.4-5.0); BILIRUBIN,TOTAL 0.6 mg/dL (0.2-1.0); CALCIUM, SERUM 8.7 mg/dL (8.5-10.1); CREATININE 0.7 mg/dL (0.6-1.3); MAGNESIUM 1.9 mg/dL (1.8-2.4); PHOSPHORUS 5.1 mg/dL (2.5-4.9); POTASSIUM 3.5 mmol/L (3.5-5.1); TOTAL PROTEIN, SERUM 7.7 g/dL (6.4-8.2)
--- NOTE | 2022-09-14 06:31 | NUR ---
RN CLOSING NOTES PT IS ASLEEP COMFORTABLY IN BED. RESPONSIVE AND FOLLOWS VERBAL COMMAND. A/O X 4. NO S & SX OF RESPIRATORY DISTRESS. PT ON 02 INHALATION VIA NASAL CANNULA O2 @3LPM, TOLERATING WELL, BREATHING EVEN AND UNLABORED @ THIS TIME. PT IV ACCESS PRESENT ON RIGHT AC #20G, PATENT, INTACT, FLUSHES WELL WITH NO S & SX OF INFILTRATION @ SITE NOTED. PT HAD 1 BM. PT HAS A BULK SUGAR HANDLER IN PLACE WITH A CURRENT READING OF A FIB CONTROLLED, HR 77 BPM. MEDICATIONS ADMINISTERED ACCORDINGLY PER MD'S ORDER. SAFETY MEASURES IN PLACE WITH BED AT ITS LOWEST & LOCKED POSITION, SIDE RAILS UP X 2, BEDSIDE TABLE & CALL LIGHT IS EASY REACH. BED ALARM IS ON. WILL ENDORSE TO THE NEXT SHIFT FOR CONTINUITY OF CARE.
--- NOTE | 2022-09-14 07:00 | NUR ---
PATENT ATTORNEY OPENING NOTES: RECEIVED PATIENT IN BED AWAKE, ALERT AND ORIENTED X 4 AND ABLE TO VERBALIZED NEEDS. ON O2 INHALATION @3LPM VIA NASAL CANNULA. STILL NOTED WITH WHEEZING PER PT VERBALIZED SHE'S ABLE TO SLEEP BETTER COMPARE THE LAST FEW DAYS. ON COSTUME DRAPER WITH CURRENT READING : A FIB CONTROLLED PULSE @77 BPM. ON BED REST FOR NOW. HEAD OF BED ELEVATED. IV ACCESS ON RAC GAUGE 20 PATENT, INTACT AND SALINE LOCKED. SAFETY MEASURES MAINTAINED: BED LOCKED AND IN LOWEST POSITION, SIDE RAILS UP X 2. CALL LIGHT IN EASY REACH FOR HELP AND ASSISTANCE. WILL MONITOR PATIENT ACCORDINGLY.
[2022-09-14] MEDS: PANTOPRAZOLE 40 MG TABLET.DR PO SCH (07:42)
[2022-09-14] MEDS: METFORMIN 500 MG TABLET PO SCH ×2 (07:42→17:25)
[2022-09-14] MEDS: ALBUTEROL HALF STRENGTH 1.25 MG/3 ML VIAL.NEB NEB SCH ×3 (07:54→23:30)
[2022-09-14] MEDS: predniSONE 5 MG TABLET PO SCH (08:24)
[2022-09-14] MEDS: GUAIFENESIN LA 600 MG TABLET.SA PO SCH ×2 (08:25→21:04)
[2022-09-14] MEDS: DILTIAZEM HCL CD 240 MG PO SCH (08:25)
[2022-09-14] MEDS: DOXYCYCLINE HYCLATE (100 MG) 100 MG TABLET PO SCH ×2 (08:26→21:04)
[2022-09-14] MEDS: SILDENAFIL CITRATE 20 MG TABLET PO SCH ×3 (08:26→17:06)
[2022-09-14] MEDS: KETOROLAC EYE 0.5% 3 ML BOTTLE LEFTEYE SCH ×4 (08:27→21:05)
[2022-09-14] MEDS: ASPIRIN 81 MG TAB.CHEW PO SCH (08:27)
[2022-09-14] MEDS: FUROSEMIDE 100 MG/10 ML VIAL IV SCH ×3 (08:27→16:08)
[2022-09-14] MEDS: POTASSIUM CHLORIDE 20 MEQ TAB.PRT.SR PO SCH ×3 (08:27→10:42)
[2022-09-14] MEDS ORDERED: DILTIAZEM HCL CD 240 MG PO SCH (09:00)
--- NOTE | 2022-09-14 12:00 | NUR ---
RN NOTES: TITRATING O2 INHALATION OFF TO O2 PT SATURATING BETWEEN 88-90%, TRIED @1LPM AND PO2 SATURATION BETWEEN 92-96%.
[2022-09-14] MEDS ORDERED: IOHEXOL-350 100 ML VIAL IV ONE (12:43)
[2022-09-14] MEDS ORDERED: IV NS 0.9% 250 ML IV ONE (12:43)
[2022-09-14] MEDS ORDERED: CT SWABBABLE VALVE TRANS SET 1 EA INFUS.SET MC ONE (12:43)
[2022-09-14] MEDS: CEFTRIAXONE 1 G in IV D5W 50 ML IV SCH (16:08)
--- NOTE | 2022-09-14 16:40 | NUR ---
RN NOTES: PT COMPLAINED OF MILD LEG CRAMPS (ON AND OFF), REPORTED TO DR DUNCAN AND ORDERED MAG OX 400MG/TAB 1 TAB ONE TIME ONLY. ORDER NOTED AND CARRIED OUT.
[2022-09-14] MEDS ORDERED: MAGNESIUM OXIDE 400 MG TABLET PO ONE (17:00)
--- NOTE | 2022-09-14 17:00 | NUR ---
RN NOTES: RAC GAUGE IV ACCESS LEAKED. RE-INSERTED IV ACCESS ON RFA GAUGE 22, PATENT AND INTACT AND FLUSHING WELL.
[2022-09-14] MEDS: LATANOPROST EYE DROP 0.005% 2.5 ML BOTTLE EACHEYE SCH (17:25)
[2022-09-14] MEDS: RIVAROXABAN 10 MG TABLET PO SCH (17:26)
--- NOTE | 2022-09-14 18:49 | NUR ---
NUTRITION CLUB AMBASSADOR CLOSING NOTES: PATIENT IN BED AWAKE, ALERT AND ORIENTED X 4 AND ABLE TO VERBALIZED NEEDS. ON O2 INHALATION @1LPM VIA NASAL CANNULA. NOTED WITH WHEEZING. ON GUEST SERVICES AMBASSADOR WITH CURRENT READING : A FIB @100BPM. HEAD OF BED ELEVATED. IV ACCESS ON RAC GAUGE 22 PATENT, INTACT AND SALINE LOCKED. SAFETY MEASURES MAINTAINED: BED LOCKED AND IN LOWEST POSITION, SIDE RAILS UP X 2. CALL LIGHT IN EASY REACH FOR HELP AND ASSISTANCE. WILL MONITOR PATIENT ACCORDINGLY. ENDORSED TO GROUND SUPPORT EQUIPMENT FITTERPERIOPERATIVE MANAGER FOR TERRI.
--- NOTE | 2022-09-14 19:00 | NUR ---
ELEANOR PATIENT STILL IN OR. Addendum: 09/14/22 at 1940 by EDENILSON VASQUEZ RN ABOVE DOCUMENTATION NOT FOR THIS PATIENT..DISREGARD
--- NOTE | 2022-09-14 19:30 | NUR ---
TELERN OOB IN RESTROOM. VOIDED FREELY. SAFETY PRECAUTIONS EMPHASIZED. REMAINS AFIB ON THE MONITOR, CONTINUED MONITORING.
[2022-09-15] VITALS: BP 119/74
[2022-09-15] MEDS: ALBUTEROL HALF STRENGTH 1.25 MG/3 ML VIAL.NEB NEB SCH ×4 (01:02→22:34)
[2022-09-15] MEDS: IPRATROPIUM NEB FS 0.5 MG/2.5 ML AMPUL.NEB NEB SCH ×4 (01:02→22:34)
[2022-09-15 06:06] LABS: BASOPHILS % (AUTO) 0.3 % (0.0-2.0); EOSINOPHILS % (AUTO) 1.7 % (0.0-6.0); HEMATOCRIT 40 % (33-45); HEMOGLOBIN 13.1 g/dL (11.5-14.8); LYMPHOCYTES # (AUTO) 1.9 K/uL (0.8-4.8); LYMPHOCYTES % (AUTO) 25.2 % (20.0-44.0); MEAN CORPUSCULAR HGB CONC 33 g/dl (31.0-36.0); MEAN CORPUSCULAR VOLUME 83 fL (82-100); MONOCYTES # (AUTO) 0.8 K/uL (0.1-1.30); MONOCYTES % (AUTO) 10.5 % (2.0-12.0); NEUTROPHILS # (AUTO) 4.6 K/uL (1.8-8.9); NEUTROPHILS % (AUTO) 62.3 % (43.0-81.0); PLATELET COUNT (AUTO) 227 K/uL (150-450); RED BLOOD CELL COUNT(AUTO) 4.87 MIL/uL (4.0-5.2); WHITE BLOOD COUNT (AUTO) 7.4 K/uL (4.3-11.0)
[2022-09-15 06:08] LABS: ALBUMIN 3.5 g/dL (3.4-5.0); BILIRUBIN,TOTAL 0.8 mg/dL (0.2-1.0); CALCIUM, SERUM 8.8 mg/dL (8.5-10.1); CREATININE 0.7 mg/dL (0.6-1.3); MAGNESIUM 1.7 mg/dL (1.8-2.4); POTASSIUM 3.2 mmol/L (3.5-5.1); TOTAL PROTEIN, SERUM 7.8 g/dL (6.4-8.2)
--- NOTE | 2022-09-15 06:30 | NUR ---
TELERN REMAINS AFIB CONTROLLED. SLEPT WELL. CONTINUED MONITORING
--- NOTE | 2022-09-15 07:30 | NUR ---
HYDROELECTRIC OPERATOR OPENING NOTES: PATIENT IN BED AWAKE, ALERT AND ORIENTED X 4 AND ABLE TO VERBALIZED NEEDS. ON O2 INHALATION @2LPM VIA NASAL CANNULA. ON SEMICONDUCTOR WAFERS SAW OPERATOR WITH CURRENT READING : A FIB @110BPM. HEAD OF BED ELEVATED. IV ACCESS ON RAC GAUGE 22 PATENT, INTACT AND SALINE LOCKED. NO C/O PAIN OR DISCOMFORT AT THIS TIME. SAFETY MEASURES MAINTAINED: BED LOCKED AND IN LOWEST POSITION, SIDE RAILS UP X 2. CALL LIGHT IN EASY REACH FOR HELP AND ASSISTANCE. WILL MONITOR PATIENT ACCORDINGLY.
[2022-09-15 08:00] VITALS: BP 96/40
[2022-09-15] MEDS: PANTOPRAZOLE 40 MG TABLET.DR PO SCH (08:28)
[2022-09-15] MEDS: METFORMIN 500 MG TABLET PO SCH ×2 (09:03→17:26)
[2022-09-15] MEDS: KETOROLAC EYE 0.5% 3 ML BOTTLE LEFTEYE SCH ×4 (09:29→20:55)
[2022-09-15] MEDS: DILTIAZEM HCL CD 240 MG PO SCH (09:30)
[2022-09-15] MEDS: SILDENAFIL CITRATE 20 MG TABLET PO SCH ×3 (09:31→16:28)
[2022-09-15] MEDS: DOXYCYCLINE HYCLATE (100 MG) 100 MG TABLET PO SCH ×2 (09:31→20:54)
[2022-09-15] MEDS: predniSONE 5 MG TABLET PO SCH (09:31)
[2022-09-15] MEDS: GUAIFENESIN LA 600 MG TABLET.SA PO SCH ×2 (09:31→20:54)
[2022-09-15] MEDS: ASPIRIN 81 MG TAB.CHEW PO SCH (09:32)
[2022-09-15] MEDS: POTASSIUM CHLORIDE 20 MEQ TAB.PRT.SR PO SCH ×3 (09:32→11:30)
[2022-09-15] MEDS: FUROSEMIDE 100 MG/10 ML VIAL IV SCH ×3 (09:35→16:28)
[2022-09-15] MEDS ORDERED: MAGNESIUM OXIDE 400 MG TABLET PO ONE (10:00)
[2022-09-15 12:00] VITALS: BP 133/89
[2022-09-15 16:00] VITALS: BP 125/65
[2022-09-15] MEDS: CEFTRIAXONE 1 G in IV D5W 50 ML IV SCH (16:06)
[2022-09-15] MEDS: RIVAROXABAN 10 MG TABLET PO SCH (17:27)
[2022-09-15] MEDS: LATANOPROST EYE DROP 0.005% 2.5 ML BOTTLE EACHEYE SCH (17:30)
--- NOTE | 2022-09-15 18:24 | NUR ---
CASE CONSULTANT CLOSING NOTES: PATIENT IN BED AWAKE, ALERT AND ORIENTED X 4 AND ABLE TO VERBALIZED NEEDS. ON O2 INHALATION @2LPM VIA NASAL CANNULA. ON J2EE PROGRAMMER WITH CURRENT READING AFIB 108. HEAD OF BED ELEVATED. IV ACCESS ON RAC GAUGE 22 PATENT, INTACT AND SALINE LOCKED. NO C/O PAIN OR DISCOMFORT AT THIS TIME. NO SIGNIFICANT CHANGES THIS SHIFT, MEDICATIONS GIVEN ORDERED, PT NEEDS MET THROUGHOUT SHIFT SAFETY MEASURES MAINTAINED: BED LOCKED AND IN LOWEST POSITION, SIDE RAILS UP X 2. CALL LIGHT IN EASY REACH FOR HELP AND ASSISTANCE. WILL ENDORSE NEXT SHIFT NURSE FOR CONTINUING PT CARE.
--- NOTE | 2022-09-15 19:30 | NUR ---
COLLECTION SUPERVISOR OPENING NOTE RECEIVED PATIENT IN BED AWAKE. PT ALERT AND ORIENTED X 4, ABLE TO VERBALIZED NEEDS. ON O2 @ 2LPM VIA NASAL CANNULA. ON AQUATIC PHYSIOTHERAPIST WITH CURRENT READING : A FIB @116 BPM. HEAD OF BED ELEVATED. IV ACCESS ON RIGHT AC GAUGE 22 PATENT, INTACT, AND SALINE LOCKED. NO C/O PAIN OR DISCOMFORT AT THIS TIME. SAFETY MEASURES MAINTAINED: BED LOCKED AND IN LOWEST POSITION, SIDE RAILS UP X 2. CALL LIGHT WITHIN REACH. WILL MONITOR PATIENT ACCORDINGLY.
[2022-09-15 19:45] VITALS: BP 96/63
[2022-09-15 21:35] LABS: ABG BASE EXCESS 2.6 mmol/L; ABG PCO2 39.5 mmHg (35.0-45.0); ABG PH 7.448 (7.350-7.450); ABG PO2 56.5 mmHg (75.0-100.0); COHb 0.7 % (0.5-1.5); MetHb 0.3 % (0.0-1.5); O2Hb 89.3 % (94.0-97.0); SITE, ABG Left Radial; VENT MODE, BG RA 21%
[2022-09-16 00:09] VITALS: BP 121/74
[2022-09-16 04:50] VITALS: BP 122/69
[2022-09-16 06:01] LABS: BASOPHILS % (AUTO) 0.3 % (0.0-2.0); EOSINOPHILS % (AUTO) 2.1 % (0.0-6.0); HEMATOCRIT 40 % (33-45); HEMOGLOBIN 13.2 g/dL (11.5-14.8); LYMPHOCYTES % (AUTO) 28.4 % (20.0-44.0); MEAN CORPUSCULAR HGB CONC 33 g/dl (31.0-36.0); MEAN CORPUSCULAR VOLUME 82 fL (82-100); MONOCYTES # (AUTO) 0.6 K/uL (0.1-1.30); NEUTROPHILS # (AUTO) 4.2 K/uL (1.8-8.9); NEUTROPHILS % (AUTO) 60.2 % (43.0-81.0); PLATELET COUNT (AUTO) 240 K/uL (150-450); RED BLOOD CELL COUNT(AUTO) 4.94 MIL/uL (4.0-5.2); WHITE BLOOD COUNT (AUTO) 6.9 K/uL (4.3-11.0)
--- NOTE | 2022-09-16 06:43 | NUR ---
RUBBER ROLLER GRINDER CLOSING NOTE LEFT PATIENT IN BED AWAKE. PT ALERT AND ORIENTED X 4, ABLE TO VERBALIZED NEEDS. ON O2 @ 2LPM VIA NASAL CANNULA. ON NURSE STAFF WITH CURRENT READING : A FIB @109 BPM. HEAD OF BED ELEVATED. IV ACCESS ON RIGHT AC GAUGE 22 PATENT, INTACT, AND SALINE LOCKED. NO C/O PAIN OR DISCOMFORT AT THIS TIME. SAFETY MEASURES MAINTAINED: BED LOCKED AND IN LOWEST POSITION, SIDE RAILS UP X 2. CALL LIGHT WITHIN REACH. WILL ENDORSE PT TO INCOMING NURSE FOR TERRI.
--- NOTE | 2022-09-16 07:00 | NUR ---
CLAY PIGEON SETTER NOTE LAB CALLED TO REPORT PT'S TROPONIN LEVEL: 178 TODAY, FROM 185 YESTERDAY.
[2022-09-16 07:02] LABS: POTASSIUM 3.6 mmol/L (3.5-5.1)
[2022-09-16 07:03] LABS: CALCIUM, SERUM 8.9 mg/dL (8.5-10.1); CREATININE 0.7 mg/dL (0.6-1.3)
[2022-09-16 07:04] LABS: ALBUMIN 3.4 g/dL (3.4-5.0); BILIRUBIN,TOTAL 0.8 mg/dL (0.2-1.0); MAGNESIUM 1.8 mg/dL (1.8-2.4); PHOSPHORUS 4.6 mg/dL (2.5-4.9); TOTAL PROTEIN, SERUM 7.8 g/dL (6.4-8.2)
--- NOTE | 2022-09-16 07:30 | NUR ---
RESOURCE MANAGEMENT SPECIALIST OPENING NOTE PATIENT AWAKE IN BED, A/O X 4. ABLE TO MAKE NEEDS KNOWN. ON O2 INHALATION @2LPM VIA NASAL CANNULA. ON EXTERNAL WATER JET OPERATOR WITH CURRENT READING A-FIB WITH HR 111 BPM. HEAD OF BED ELEVATED. IV ACCESS ON RAC GAUGE 22 PATENT AND INTACT, SL. NO C/O PAIN OR DISCOMFORT AT THIS TIME. SAFETY MEASURES IN PLACE: CALL LIGHT WITHIN REACH, SIDE RAILS UP X 2, BED LOCKED IN LOWEST POSITION, BED ALARM ON. WILL CONTINUE TO MONITOR PATIENT.
[2022-09-16 08:00] VITALS: BP 118/40
[2022-09-16] MEDS: ALBUTEROL HALF STRENGTH 1.25 MG/3 ML VIAL.NEB NEB SCH ×3 (08:18→22:40)
[2022-09-16] MEDS: IPRATROPIUM NEB FS 0.5 MG/2.5 ML AMPUL.NEB NEB SCH ×3 (08:18→22:40)
[2022-09-16] MEDS: PANTOPRAZOLE 40 MG TABLET.DR PO SCH (08:46)
[2022-09-16] MEDS: METFORMIN 500 MG TABLET PO SCH ×2 (08:46→17:10)
[2022-09-16] MEDS: predniSONE 5 MG TABLET PO SCH (08:47)
[2022-09-16] MEDS: DOXYCYCLINE HYCLATE (100 MG) 100 MG TABLET PO SCH ×2 (08:47→21:18)
[2022-09-16] MEDS: ASPIRIN 81 MG TAB.CHEW PO SCH (08:47)
[2022-09-16] MEDS: KETOROLAC EYE 0.5% 3 ML BOTTLE LEFTEYE SCH ×4 (08:47→21:18)
[2022-09-16] MEDS: GUAIFENESIN LA 600 MG TABLET.SA PO SCH ×2 (08:47→20:02)
[2022-09-16] MEDS: DILTIAZEM HCL CD 240 MG PO SCH (08:48)
[2022-09-16] MEDS: SILDENAFIL CITRATE 20 MG TABLET PO SCH ×3 (08:52→17:10)
[2022-09-16 12:00] VITALS: BP 133/94
[2022-09-16] MEDS: DIGOXIN INJ 0.5 MG/2 ML AMPUL IV SCH ×2 (12:13→17:09)
[2022-09-16] MEDS: CEFTRIAXONE 1 G in IV D5W 50 ML IV SCH (15:00)
[2022-09-16 16:00] VITALS: BP 100/54
[2022-09-16] MEDS: RIVAROXABAN 10 MG TABLET PO SCH (17:13)
[2022-09-16] MEDS: LATANOPROST EYE DROP 0.005% 2.5 ML BOTTLE EACHEYE SCH (17:15)
--- NOTE | 2022-09-16 18:38 | NUR ---
SENIOR RESEARCH SCIENTIST CLOSING NOTE PATIENT AWAKE IN BED , ALERT AND ORIENTED X 4, CITIZEN OF [place] SPEAKING BUT ABLE TO VERBALIZED NEEDS. ON O2 INHALATION @2LPM VIA NASAL CANNULA. ON SKIP TRACER WITH CURRENT READING AFIB 112. HEAD OF BED ELEVATED. IV ACCESS ON RAC GAUGE 22 PATENT, INTACT AND SALINE LOCKED. NO C/O PAIN OR DISCOMFORT AT THIS TIME, MEDICATIONS GIVEN ORDERED, PT NEEDS MET THROUGHOUT SHIFT. SAFETY MEASURES MAINTAINED: BED LOCKED AND IN LOWEST POSITION, SIDE RAILS UP X 2. CALL LIGHT IN EASY REACH FOR HELP AND ASSISTANCE. WILL ENDORSE NEXT SHIFT NURSE FOR TERRI.
--- NOTE | 2022-09-16 19:25 | NUR ---
noc rn note received patient in bed, a/ox4, moroccan speaking. no s/s of apparent distress on 2lpm of o2 via nc. denies pain at this time. reading A-fib with 105 bpm at this time. right AC #22g intact, patent, on saline lock. safety in place-- bed in lowest, locked position, side rails up X2, call light within reach. patient is ambulatory to the restroom. will cont. with patient's plan of care.
[2022-09-16 20:00] VITALS: BP 111/70
--- NOTE | 2022-09-16 20:04 | NUR ---
noc rn note sched 2100 mucinex given early, patient c/o little cough.
[2022-09-16] MEDS: GUAIFENESIN/D-METHORPHAN HB 5 ML UDC PO PRN (23:03)
--- NOTE | 2022-09-16 23:04 | NUR ---
noc rn note patient still coughing at this time even after mucinex, given cough syrup as requested by patient. Given Robitussin 5ml as ordered PRN for cough.
[2022-09-17] VITALS: BP 131/84
[2022-09-17] MEDS: DIGOXIN INJ 0.5 MG/2 ML AMPUL IV SCH (00:05)
[2022-09-17 06:23] LABS: CALCIUM, SERUM 8.7 mg/dL (8.5-10.1); CREATININE 0.6 mg/dL (0.6-1.3); MAGNESIUM 1.9 mg/dL (1.8-2.4); POTASSIUM 3.4 mmol/L (3.5-5.1)
[2022-09-17 07:00] VITALS: BP 123/81
--- NOTE | 2022-09-17 07:17 | NUR ---
noc rn closing patient in bed, a/ox4, no s/s of apparent distress on 2lpm of o2 via nc. denies any pain nor discomfort at this time. patient IV access now on left wrist #22g saline lock. reading a-fib controlled rate. all needs attended. all scheduled meds administered. patient made aware that we are keeping track of how much she is taking and peeing. safety kept in place. report given to MASOOD Greer for continuity of patient care.
--- NOTE | 2022-09-17 07:37 | NUR ---
JOY OPERATOR HELPER OPENING NOTE PATIENT AWAKE IN BED, A/O X 4. ABLE TO MAKE NEEDS KNOWN. ON O2 INHALATION @2LPM VIA NASAL CANNULA. ON EXTERNAL JIRA ADMINISTRATOR WITH CURRENT READING A-FIB WITH HR 106 BPM. HEAD OF BED ELEVATED. IV ACCESS ON LEFT WRIST #22G PATENT AND INTACT, SL. NO C/O PAIN OR DISCOMFORT AT THIS TIME. SAFETY MEASURES IN PLACE: CALL LIGHT WITHIN REACH, SIDE RAILS UP X 2, BED LOCKED IN LOWEST POSITION, BED ALARM ON. WILL CONTINUE TO MONITOR.
[2022-09-17] MEDS: IPRATROPIUM NEB FS 0.5 MG/2.5 ML AMPUL.NEB NEB SCH ×3 (07:51→23:14)
[2022-09-17] MEDS: ALBUTEROL HALF STRENGTH 1.25 MG/3 ML VIAL.NEB NEB SCH ×3 (07:51→23:14)
[2022-09-17] MEDS: SILDENAFIL CITRATE 20 MG TABLET PO SCH ×3 (08:12→16:01)
[2022-09-17] MEDS: METFORMIN 500 MG TABLET PO SCH ×2 (08:12→17:01)
[2022-09-17] MEDS: predniSONE 5 MG TABLET PO SCH (08:12)
[2022-09-17] MEDS: GUAIFENESIN LA 600 MG TABLET.SA PO SCH ×2 (08:12→20:10)
[2022-09-17] MEDS: DILTIAZEM HCL CD 240 MG PO SCH (08:13)
[2022-09-17] MEDS: DOXYCYCLINE HYCLATE (100 MG) 100 MG TABLET PO SCH ×2 (08:13→20:10)
[2022-09-17] MEDS: KETOROLAC EYE 0.5% 3 ML BOTTLE LEFTEYE SCH ×4 (08:13→20:15)
[2022-09-17] MEDS: ASPIRIN 81 MG TAB.CHEW PO SCH (08:13)
[2022-09-17] MEDS: PANTOPRAZOLE 40 MG TABLET.DR PO SCH (08:13)
[2022-09-17] MEDS ORDERED: POTASSIUM CHLORIDE 20 MEQ TAB.PRT.SR PO SCH (09:30)
[2022-09-17 12:00] VITALS: BP 135/67
[2022-09-17] MEDS: DIGOXIN 0.25 MG TABLET PO SCH (12:04)
[2022-09-17] MEDS: CEFTRIAXONE 1 G in IV D5W 50 ML IV SCH (15:59)
[2022-09-17 16:00] VITALS: BP 116/60
[2022-09-17 16:27] LABS: BILIRUBIN,URINE NEGATIVE (NEGATIVE); COLOR,URINE YELLOW (YELLOW); LEUKOCYTE ESTERASE ,URINE NEGATIVE (NEGATIVE); NITRITE, URINE NEGATIVE (NEGATIVE); PROTEIN,URINE NEGATIVE (NEGATIVE); UGLUCOSE NEGATIVE (NEGATIVE); UROBILINOGEN,URINE 0.2 EU/dL (0.2)
[2022-09-17 16:45] LABS: BACTERIA,URINE Few /HPF (None Seen); RBC,URINE 0-2 /HPF (0-2); SQUAMOUS EPITHELIAL CELL,UR Few /HPF (None Seen); WBC,URINE 0-2 /HPF (0-3)
[2022-09-17] MEDS: LATANOPROST EYE DROP 0.005% 2.5 ML BOTTLE EACHEYE SCH (17:01)
[2022-09-17] MEDS: RIVAROXABAN 10 MG TABLET PO SCH (17:02)
[2022-09-17] MEDS: GUAIFENESIN/D-METHORPHAN HB 5 ML UDC PO PRN (18:04)
--- NOTE | 2022-09-17 18:05 | NUR ---
RN NOTE PER PATIENT REQUEST ROBITUSSIN GIVEN PRN FOR COUGH. WILL CONTINUE TO MONITOR PATIENT.
--- NOTE | 2022-09-17 18:45 | NUR ---
PRECINCT I POLICE SERGEANT CLOSING NOTE PATIENT AWAKE IN BED , ALERT AND ORIENTED X 4, TU[place] SPEAKING BUT ABLE TO VERBALIZED NEEDS. ON O2 INHALATION @2LPM VIA NASAL CANNULA. ON VICE PRESIDENT WITH CURRENT READING AFIB 96. HEAD OF BED ELEVATED. IV ACCESS ON LEFT WRIST 22G PATENT, INTACT AND SALINE LOCKED. NO C/O PAIN OR DISCOMFORT AT THIS TIME, MEDICATIONS GIVEN ORDERED, PT NEEDS MET THROUGHOUT SHIFT. SAFETY MEASURES MAINTAINED: BED LOCKED AND IN LOWEST POSITION, SIDE RAILS UP X 2. CALL LIGHT IN EASY REACH FOR HELP AND ASSISTANCE. WILL ENDORSE NEXT SHIFT NURSE FOR TERRI.
--- NOTE | 2022-09-17 19:30 | NUR ---
COPY EDITOR OPENING NOTES RECEIVED PATIENT AWAKE AND SITTING ON THE CHAIR NEXT TO HER BED. PATIENT IS A/O TIMES 4, GERMAN SPEAKER. ABLE TO MAKE NEEDS KNOWN. NO PAIN NOTED. NO SOB NOTED. NO DISTRESS NOTED. ON TELE MONITOR READING CONTROLLED AFIB 96. PATIENT IS AMBULATORY AND BRP. IV ACCESS NOTED ON THE LEFT WRIST #22 INTACT AND SL. ALL SAFETY MEASURES IN PLACE. BED LOCKED IN THE LOWEST POSITION. CALL LIGHT AND TABLE IN EASY REACH. SIDE RAILS UP TIMES 2. CALL LIGHT AND TABLE IN EASY REACH. WILL CONTINUE TO MONITOR CLOSELY.
[2022-09-17 20:00] VITALS: BP 124/81
[2022-09-17 21:25] VITALS: BP 128/83
[2022-09-18] VITALS: BP 123/78
[2022-09-18] MEDS: GUAIFENESIN/D-METHORPHAN HB 5 ML UDC PO PRN ×2 (00:30→23:15)
[2022-09-18 04:00] VITALS: BP 115/72
--- NOTE | 2022-09-18 06:16 | NUR ---
TELEPHONE SERVICE REPRESENTATIVE CLOSING NOTES PATIENT RESTING ON HER BED. PATIENT IS A/O TIMES 4, MONTSERRATIAN SPEAKER. ABLE TO MAKE NEEDS KNOWN. NO PAIN NOTED. NO SOB NOTED. NO DISTRESS NOTED. ON AND OFF COUGH NOTED DURING SHIFT. RUBITTUSIN PRN GIVEN ORDERED FOR COUGH AT 0030 AM. ON TELE MONITOR READING CONTROLLED AFIB WITH PVC'S. PATIENT IS AMBULATORY AND BRP. IV ACCESS NOTED ON THE LEFT WRIST #22 INTACT AND SL. ALL DUE MEDS GIVEN ORDERED. LIMITED PO INTAKE PER OFFICE SUPPORT CLERK. STRICT I/O. ALL SAFETY MEASURES IN PLACE. BED LOCKED IN THE LOWEST POSITION. CALL LIGHT AND TABLE IN EASY REACH. SIDE RAILS UP TIMES 2. CALL LIGHT AND TABLE IN EASY REACH. WILL ENDORSE FOR TERRI.
--- NOTE | 2022-09-18 07:30 | NUR ---
REHAB CONSULTANT OPENING NOTES RECEIVED PATIENT AWAKE ON BED AND A/O X4, WOLOF SPEAKING. ON O2 AT 2LPM VIA NASAL CANNULA TOLERATING WELL. NO SOB NOTED. NOT IN DISTRESS. WITH NO COMPLAINTS OF PAIN OR DISCOMFORT AT THIS TIME. ON TELE MONITOR CURRENTLY READING CONTROLLED A-FIB AT 90BPM. WITH IV ACCESS AT THE LEFT WRIST G22 SALINE LOCKED, PATENT AND INTACT. ON STRICT I/O. PATIENT TO LIMIT WATER INTAKE. SAFETY MEASURES IN PLACED. CALL LIGHT WITHIN REACH, BED ON LOWEST LOCKED POSITION, SIDE RAILS UP X2. WILL CONTINUE TO MONITOR.
[2022-09-18] MEDS: IPRATROPIUM NEB FS 0.5 MG/2.5 ML AMPUL.NEB NEB SCH ×3 (07:52→23:38)
[2022-09-18] MEDS: ALBUTEROL HALF STRENGTH 1.25 MG/3 ML VIAL.NEB NEB SCH ×3 (07:52→23:38)
[2022-09-18 08:00] VITALS: BP 143/80
[2022-09-18] MEDS: SILDENAFIL CITRATE 20 MG TABLET PO SCH ×3 (08:17→16:33)
[2022-09-18] MEDS: predniSONE 5 MG TABLET PO SCH (08:17)
[2022-09-18] MEDS: DOXYCYCLINE HYCLATE (100 MG) 100 MG TABLET PO SCH ×2 (08:17→20:09)
[2022-09-18] MEDS: METFORMIN 500 MG TABLET PO SCH ×2 (08:18→17:42)
[2022-09-18] MEDS: GUAIFENESIN LA 600 MG TABLET.SA PO SCH ×2 (08:18→20:09)
[2022-09-18] MEDS: DILTIAZEM HCL CD 240 MG PO SCH (08:18)
[2022-09-18] MEDS: PANTOPRAZOLE 40 MG TABLET.DR PO SCH (08:18)
[2022-09-18] MEDS: ASPIRIN 81 MG TAB.CHEW PO SCH (08:21)
[2022-09-18] MEDS: KETOROLAC EYE 0.5% 3 ML BOTTLE LEFTEYE SCH ×4 (08:35→20:14)
[2022-09-18 09:21] LABS: CALCIUM, SERUM 8.8 mg/dL (8.5-10.1); CREATININE 0.7 mg/dL (0.6-1.3); POTASSIUM 3.4 mmol/L (3.5-5.1)
[2022-09-18 12:00] VITALS: BP 111/55
[2022-09-18] MEDS: DIGOXIN 0.25 MG TABLET PO SCH (13:55)
[2022-09-18 16:00] VITALS: BP 120/67
[2022-09-18] MEDS: CEFTRIAXONE 1 G in IV D5W 50 ML IV SCH (16:33)
[2022-09-18] MEDS: RIVAROXABAN 10 MG TABLET PO SCH (17:43)
[2022-09-18] MEDS: LATANOPROST EYE DROP 0.005% 2.5 ML BOTTLE EACHEYE SCH (17:43)
--- NOTE | 2022-09-18 18:24 | NUR ---
FARMWORKERS CLOSING NOTES PATIENT AWAKE SITTING ON BED AND A/O X4, FAROESE SPEAKING. ON O2 AT 0.5LPM VIA NASAL CANNULA TOLERATING WELL. NO SOB NOTED. NOT IN DISTRESS. WITH NO COMPLAINTS OF PAIN OR DISCOMFORT AT THIS TIME. ON TELE MONITOR CURRENTLY READING CONTROLLED A-FIB AT 88BPM. WITH IV ACCESS AT THE LEFT WRIST G22 SALINE LOCKED, PATENT AND INTACT. ON STRICT I/O. PATIENT TO LIMIT WATER INTAKE. DUE MEDS GIVEN. SAFETY MEASURES IN PLACED. CALL LIGHT WITHIN REACH, BED ON LOWEST LOCKED POSITION, SIDE RAILS UP X2. WILL ENDORSE TO NEXT SHIFT FOR TERRI.
[2022-09-18] MEDS ORDERED: POTASSIUM CHLORIDE 20 MEQ TAB.PRT.SR PO ONE (18:30)
--- NOTE | 2022-09-18 19:30 | NUR ---
TECHNICAL SOLUTIONS ENGINEER OPENING NOTES PATIENT AWAKE SITTING ON BED AND A/O X4, SRI LANKAN SPEAKING. ON O2 AT 0.5LPM VIA NASAL CANNULA TOLERATING WELL. NO SOB NOTED. NOT IN DISTRESS. WITH NO COMPLAINTS OF PAIN OR DISCOMFORT AT THIS TIME. ON TELE MONITOR CURRENTLY READING CONTROLLED A-FIB AT 88BPM. WITH IV ACCESS AT THE LEFT WRIST G22 SALINE LOCKED, PATENT AND INTACT. ON STRICT I/O. PATIENT TO LIMIT WATER INTAKE. SAFETY MEASURES IN PLACED. CALL LIGHT WITHIN REACH, BED ON LOWEST LOCKED POSITION, SIDE RAILS UP X2.
[2022-09-18 20:00] VITALS: BP 128/63
[2022-09-19] VITALS: BP 131/67
[2022-09-19 04:00] VITALS: BP 136/72
--- NOTE | 2022-09-19 06:34 | NUR ---
OFFICE AGENT CLOSING NOTE PATIENT ASLEEP IN BED AND A/O X4, [place] SPEAKING. ON O2 AT 0.5LPM VIA NASAL CANNULA TOLERATING WELL. NO SOB NOTED. NOT IN DISTRESS. WITH NO COMPLAINTS OF PAIN OR DISCOMFORT AT THIS TIME. ON TELE MONITOR CURRENTLY READING CONTROLLED A-FIB AT 80BPM. WITH IV ACCESS AT THE LEFT WRIST G22 SALINE LOCKED, PATENT AND INTACT. ON STRICT I/O. PATIENT TO LIMIT WATER INTAKE. SAFETY MEASURES IN PLACED. CALL LIGHT WITHIN REACH, BED ON LOWEST LOCKED POSITION, SIDE RAILS UP X2.
--- NOTE | 2022-09-19 07:25 | NUR ---
ADMINISTRATIVE OFFICE SPECIALIST NOTES PATIENT IN BED ALERT ORIENTED X 4, NO ACUTE DISTRESS NOTED, BREATHING UNLABORED. DENIED ANY PAIN. ON WELDING MACHINE OPERATOR HELPER ARC READS AFIB RVR WITH PVC HEART RATE 80'S CONTROLLED. IV ACCESS PATIENT AND INTACT, NO REDNESS, NO SWELLING NOTED. SAFETY MEASURES IN PLACE, CALL LIGHT WITHIN REACH, WILL CONTINUE TO MONITOR ACCORDINGLY.
[2022-09-19 08:00] VITALS: BP 123/66
[2022-09-19] MEDS: PANTOPRAZOLE 40 MG TABLET.DR PO SCH (08:01)
[2022-09-19] MEDS: ALBUTEROL HALF STRENGTH 1.25 MG/3 ML VIAL.NEB NEB SCH (08:05)
[2022-09-19] MEDS: IPRATROPIUM NEB FS 0.5 MG/2.5 ML AMPUL.NEB NEB SCH (08:05)
[2022-09-19 08:29] VITALS: BP 123/66
[2022-09-19] MEDS: ASPIRIN 81 MG TAB.CHEW PO SCH (08:29)
[2022-09-19] MEDS: METFORMIN 500 MG TABLET PO SCH (08:29)
[2022-09-19] MEDS: DILTIAZEM HCL CD 240 MG PO SCH (08:29)
[2022-09-19] MEDS: DOXYCYCLINE HYCLATE (100 MG) 100 MG TABLET PO SCH (08:29)
[2022-09-19] MEDS: predniSONE 5 MG TABLET PO SCH (08:30)
[2022-09-19] MEDS: GUAIFENESIN LA 600 MG TABLET.SA PO SCH (08:30)
[2022-09-19] MEDS: SILDENAFIL CITRATE 20 MG TABLET PO SCH (08:30)
[2022-09-19] MEDS: KETOROLAC EYE 0.5% 3 ML BOTTLE LEFTEYE SCH (08:31)
[2022-09-19] MEDS ORDERED: PRED5TAB48 PO (09:03)
[2022-09-19] MEDS ORDERED: DIGO250T PO (09:03)
[2022-09-19] MEDS ORDERED: DILT240C88 PO (09:03)
--- NOTE | 2022-09-19 12:50 | NUR ---
FAMILY MEDICINE PHYSICIAN ASSISTANT NOTES PATIENT DISCHARGE HOME WITH STABLE VITAL SIGNS, NO ACUTE DISTRESS NOTED, BREATHING UNLABORED. DENIED ANY PAIN. DISCHARGE INSTRUCTIONS GIVEN TO THE PATIENT AND DAUGHTER AT BEDSIDE INCLUDING NEW MEDICATIONS AND FOLLOW UP WITH PRIMARY DOCTOR AND CARDIOLOGY, VERBALIZED UNDERSTANDING. IV ACCESS REMOVED, NO REDNESS, NO SWELLING NO BLEEDING NOTED. ALL BELONGINGS ACCOUNTED FOR. SKIN IS INTACT. ASSISTED TO THE LOBBY, PICKED UP VIA PRIVATE CAR ACCOMPANIED BY DAUGHTER IN STABLE CONDITION.
== END 2022-09-19 12:45 | disposition home health service (06) | DRG 194 ==
LOC: ER 13:49 → TELE 19:53
PROVIDERS: ADMIT Nurse Practitioner Family; ATTEND Nurse Practitioner Acute Care
DX: I11.0 Hypertensive heart disease with heart failure (principal); I21.A1 Myocardial infarction type 2; E44.1 Mild protein-calorie malnutrition; I27.20 Pulmonary hypertension, unspecified; E66.2 Morbid (severe) obesity with alveolar hypoventilation; E87.1 Hypo-osmolality and hyponatremia; Z79.01 Long term (current) use of anticoagulants; I48.91 Unspecified atrial fibrillation; Z20.822 Contact with and (suspected) exposure to COVID-19; Z79.84 Long term (current) use of oral hypoglycemic drugs; Z79.899 Other long term (current) drug therapy; I48.20 Chronic atrial fibrillation, unspecified; J06.9 Acute upper respiratory infection, unspecified; E87.6 Hypokalemia; M06.9 Rheumatoid arthritis, unspecified; E11.9 Type 2 diabetes mellitus without complications; Z68.37 Body mass index [BMI] 37.0-37.9, adult; J45.909 Unspecified asthma, uncomplicated; I25.2 Old myocardial infarction; E88.81 Metabolic syndrome and other insulin resistance; I50.43 Acute on chronic combined systolic (congestive) and diastolic (congestive) heart failure; I70.0 Atherosclerosis of aorta; Z90.49 Acquired absence of other specified parts of digestive tract; R63.1 Polydipsia
CPT/HCPCS: 36415; 36600; 71045-TC; 80048-TC; 80053-TC; 80061-TC; 80076-TC; 81001; 82803-TC; 83605-TC; 83735-TC; 83880; 84100-TC; 84132-TC; 84295-TC; 84300-TC; 84443-TC; 84484-TC; 85025-TC; 85730-TC; 87040-TC; 87081-TC; 93307-TC; 94799-TC; A4223; C9803; G0378; J0456; J0696; J1160; J1940; J2405; J7040; J7050; J7060; J7512; Q9967

== ENCOUNTER 2022-10-18 17:11 | Inpatient (IN) | payer MEDICAID ==
[~2022-10-18] VITALS: Ht 160 cm; Wt 96.6 kg
[~2022-10-18 17:11] MED LIST changes: -ASPI-1420 PO; +CYCL5TAB PO; -DEXA6TAB6 PO; +DIGO250T PO; -ENOX100D SQ; +FLUT16SP; +FURO20TA4 PO; -GUAI600T53 PO; +KETO5DRO39 LEFTEYE; -LEFL10TA16 PO; +LORA10TA7 PO; -METO25TA20 PO; +PRED5TAB PO; +PRED5TAB48 PO; +RIVA10TA PO
--- NOTE | 2022-10-18 19:07 | NUR ---
DAUGHTER LEFT CONTACT # [phone], JAMES
[2022-10-18 19:14] LABS: BASOPHILS % (AUTO) 0.5 % (0.0-2.0); HEMATOCRIT 36 % (33-45); HEMOGLOBIN 11.6 g/dL (11.5-14.8); LYMPHOCYTES # (AUTO) 1.1 K/uL (0.8-4.8); LYMPHOCYTES % (AUTO) 18.3 % (20.0-44.0); MEAN CORPUSCULAR HGB CONC 32 g/dl (31.0-36.0); MEAN CORPUSCULAR VOLUME 83 fL (82-100); MONOCYTES # (AUTO) 0.6 K/uL (0.1-1.30); MONOCYTES % (AUTO) 9.4 % (2.0-12.0); NEUTROPHILS # (AUTO) 4.2 K/uL (1.8-8.9); NEUTROPHILS % (AUTO) 70.8 % (43.0-81.0); PLATELET COUNT (AUTO) 219 K/uL (150-450); RED BLOOD CELL COUNT(AUTO) 4.33 MIL/uL (4.0-5.2); WHITE BLOOD COUNT (AUTO) 5.9 K/uL (4.3-11.0)
--- NOTE | 2022-10-18 19:27 | NUR ---
IV ACCESS ESTABLISHED 20G RIGHT HAND.
[2022-10-18 19:37] LABS: CALCIUM, SERUM 8.7 mg/dL (8.5-10.1); CARBON DIOXIDE 28 mmol/L (21-32); CHLORIDE 105 mmol/L (98-107); CREATININE 0.7 mg/dL (0.6-1.3); GLUCOSE 115 mg/dL (74-106); POTASSIUM 3.2 mmol/L (3.5-5.1); SODIUM SERUM 141 mmol/L (136-145); UREA NITROGEN, BLOOD 9 mg/dL (7-18)
--- NOTE | 2022-10-18 20:20 | NUR ---
COVID ANTIGEN SWAB COLLECTED AND SENT TO LAB
[2022-10-18] MEDS ORDERED: POTASSIUM CHLORIDE 20 MEQ TAB.PRT.SR PO ONE ×2 (21:00→21:33)
[2022-10-18 21:42] LABS: ALBUMIN 3.3 g/dL (3.4-5.0); BILIRUBIN,DIRECT 0.2 mg/dL (0.0-0.2); BILIRUBIN,TOTAL 0.7 mg/dL (0.2-1.0)
--- NOTE | 2022-10-18 22:29 | NUR ---
REPORT GIVEN FOR CONTINUATION OF CARE.
[2022-10-18] MEDS ORDERED: LORATADINE 10 MG TABLET PO PRN (22:30)
[2022-10-18] MEDS ORDERED: ONDANSETRON HCL/PF 4 MG/2 ML VIAL IVP PRN (22:30)
[2022-10-18] MEDS ORDERED: HYDROCODONE/APAP 5/325MG TABLET PO PRN (22:30)
[2022-10-18] MEDS ORDERED: Z GUARD REMEDY 4 OZ OINT TP PRN (22:30)
[2022-10-18] MEDS ORDERED: TEMAZEPAM 15 MG CAPSULE PO PRN (22:30)
[2022-10-18] MEDS ORDERED: MORPHINE SULFATE INJ 2 MG/ML DISP.SYRIN IV PRN (22:30)
[2022-10-18] MEDS ORDERED: MAG HYDROX/AL HYDROX/SIMETH 30 ML UDC PO PRN (22:30)
[2022-10-18] MEDS ORDERED: MAGNESIUM HYDROXIDE 30 ML UDC PO PRN (22:30)
--- NOTE | 2022-10-18 22:43 | NUR ---
PT TO 3W [facility]
[2022-10-18 23:00] VITALS: BP 138/67
--- NOTE | 2022-10-18 23:00 | NUR ---
RN notes Pt informed that Pt was here in [facility] 10 days ago. Pt develop allergy with cardizem and digoxin after DC 10 days ago. charge nurse is aware and informed. Informed and notify .
--- NOTE | 2022-10-18 23:15 | NUR ---
RN notes Spoke and informed Dr. Roman regarding Pt develop allergy to cardizem and digoxin. Pt informed the meds causes her heart palpitations,nausea and rashes. MD ordered to stop the meds. Charge nurse is aware and informed.
--- NOTE | 2022-10-18 23:25 | NUR ---
RN notes Informed and notify Darinel Roman regarding Pt trop from [phone]. No new orders received. Charge nurse is aware and informed.
[2022-10-18] MEDS: ACETAMINOPHEN 325 MG TABLET PO PRN (23:33)
--- NOTE | 2022-10-18 23:36 | NUR ---
RN notes Pt is complaining of headache and requesting tylenol. administered tylenol as ordered for headache. safety precautions is maintained. will continue to monitor.
--- NOTE | 2022-10-18 23:45 | NUR ---
analysis engineer notes Received Pt from ER nurse MASOOD Massey. Pt is alert and orientedX4. On room air. No SOB. No S/S of distress noted. IV site at R hand # 20 is clean, intact and flushes well. Tele monitor showed afib with PVC hr at 86. Skin assessment is done and performed. skin pictures are taken. Pt's belonging was checked by Eric. Reorient Pt to the room and the use of call light. Pt verbalized understanding. Safety precautions is maintained. Bed at low position,brakes locked, side rails upX2, hob elevated, bed alarm is on and call light is within reach. Will continue to monitor. Addendum: 10/19/22 at 8921 by TEMO JUDD RN Pt came at the unit at [id number]
[2022-10-19] VITALS: BP 138/67
[2022-10-19 04:00] VITALS: BP 134/94
[2022-10-19 06:04] LABS: BASOPHILS # (AUTO) 0.1 K/uL (0.0-0.2); BASOPHILS % (AUTO) 0.9 % (0.0-2.0); EOSINOPHILS % (AUTO) 1.9 % (0.0-6.0); HEMATOCRIT 34 % (33-45); HEMOGLOBIN 11.2 g/dL (11.5-14.8); LYMPHOCYTES # (AUTO) 1.7 K/uL (0.8-4.8); LYMPHOCYTES % (AUTO) 29.9 % (20.0-44.0); MEAN CORPUSCULAR HGB CONC 33 g/dl (31.0-36.0); MEAN CORPUSCULAR VOLUME 85 fL (82-100); MONOCYTES # (AUTO) 0.6 K/uL (0.1-1.30); MONOCYTES % (AUTO) 10.1 % (2.0-12.0); NEUTROPHILS # (AUTO) 3.3 K/uL (1.8-8.9); NEUTROPHILS % (AUTO) 57.2 % (43.0-81.0); PLATELET COUNT (AUTO) 188 K/uL (150-450); RED BLOOD CELL COUNT(AUTO) 4.07 MIL/uL (4.0-5.2); WHITE BLOOD COUNT (AUTO) 5.7 K/uL (4.3-11.0)
--- NOTE | 2022-10-19 06:40 | NUR ---
RN closing notes Pt is resting in bed comfortably. Pt is alert and orientedX4. On room air. No SOB. No S/S of distress noted. VS is stable. IV site at R hand # 20 is clean, intact and flushes well. Tele monitor showed afib with PVC hr 69. Kept Pt clean, dry and comfortable. Safety precautions is maintained. Bed at low position,brakes locked, side rails upX2, hob elevated, bed alarm is on and call light is within reach. Will endorse to am nurse for TERRI.
--- NOTE | 2022-10-19 06:53 | NUR ---
RN notes Received a phone call from lab November for troponin 312. Informed and notify Dr. Roman. awaiting for response. will endorse to am nurse.
--- NOTE | 2022-10-19 07:30 | NUR ---
GENERAL TECHNICIAN OPENING NOTE Patient in bed, awake. A/O x 4, Burkinan speaking. On room air, breathing evenly and unlabored. No SOB or s/s of distress noted. IV access on Right hand #20 SL, intact and patent. On tele monitoring showing Afib with PVC, HR on the 60's. Mild BLE swelling noted. Safety precautions in place: bed in low, locked position; siderails up x 2; call light within reach. Will continue to monitor.
[2022-10-19 07:49] LABS: CALCIUM, SERUM 8.5 mg/dL (8.5-10.1); CREATININE 0.5 mg/dL (0.6-1.3); MAGNESIUM 1.9 mg/dL (1.8-2.4); PHOSPHORUS 4.1 mg/dL (2.5-4.9); POTASSIUM 3.8 mmol/L (3.5-5.1)
[2022-10-19 08:00] VITALS: BP 132/64
[2022-10-19] MEDS: PANTOPRAZOLE 40 MG TABLET.DR PO SCH (08:26)
[2022-10-19] MEDS: HYDROXYCHLOROQUINE 200 MG TABLET PO SCH ×2 (08:27→17:12)
[2022-10-19] MEDS: predniSONE 5 MG TABLET PO SCH (08:27)
[2022-10-19] MEDS ORDERED: FUROSEMIDE 20 MG/2 ML VIAL IV SCH (08:30)
[2022-10-19] MEDS ORDERED: DILTIAZEM HCL CD 240 MG PO SCH (09:00)
[2022-10-19] MEDS: KETOROLAC EYE 0.5% 3 ML BOTTLE LEFTEYE SCH ×5 (09:00→21:00)
[2022-10-19] MEDS ORDERED: METFORMIN 500 MG TABLET PO SCH (09:00)
[2022-10-19] MEDS ORDERED: DIGOXIN 0.25 MG TABLET PO SCH (09:00)
[2022-10-19] MEDS ORDERED: FUROSEMIDE 20 MG TABLET PO SCH (09:00)
[2022-10-19] MEDS ORDERED: POTASSIUM CHLORIDE 20 MEQ TAB.PRT.SR PO SCH (09:00)
[2022-10-19] MEDS ORDERED: RIVAROXABAN 10 MG TABLET PO SCH (09:00)
[2022-10-19] MEDS: ASPIRIN 81 MG TAB.CHEW PO SCH (10:01)
[2022-10-19] MEDS: DILTIAZEM HCL CD 240 MG PO SCH (10:01)
[2022-10-19] MEDS: ATORVASTATIN 10 MG TABLET PO SCH (10:01)
[2022-10-19 12:00] VITALS: BP 128/54
[2022-10-19] MEDS: DIGOXIN 0.25 MG TABLET PO SCH (12:44)
[2022-10-19] MEDS ORDERED: IOHEXOL-350 100 ML VIAL IV ONE (13:23)
[2022-10-19] MEDS ORDERED: IV NS 0.9% 250 ML IV ONE (13:23)
[2022-10-19] MEDS ORDERED: NITROGLYCERIN 0.4 MG/TAB BOTTLE SL ONE (13:30)
[2022-10-19] MEDS ORDERED: NITROGLYCERIN 0.4 MG/TAB BOTTLE ONE (13:31)
[2022-10-19] MEDS: METOPROLOL TARTRATE INJ 5 MG/5 ML AMPUL IVP PRN ×2 (13:32→13:37)
[2022-10-19] MEDS ORDERED: METOPROLOL TARTRATE INJ 5 MG/5 ML AMPUL ONE (13:32)
[2022-10-19 16:00] VITALS: BP 106/56
[2022-10-19] MEDS: LATANOPROST EYE DROP 0.005% 2.5 ML BOTTLE EACHEYE SCH (17:12)
--- NOTE | 2022-10-19 18:52 | NUR ---
GRAIN MANAGER CLOSING NOTE Patient in bed, resting. A/O x 4, Kyrgyz speaking. Stable on room air, breathing evenly and unlabored. No SOB or s/s of distress noted. IV access on Right hand #20 SL and RAC #18 SL, intact and patent. On tele monitoring showing SR, HR on the 68. Mild BLE swelling noted. All needs attended to. Due meds given. Safety precautions in place: bed in low, locked position; siderails up x 2; call light within reach. Will endorse to maintenance technician 3rd shift nurse for TERRI.
[2022-10-19 20:00] VITALS: BP 124/66
--- NOTE | 2022-10-19 20:00 | NUR ---
TELE ARTISAN PLASTERER INITIAL NOTES Received report from am nurse and seen patient in bed awake and alert Maori Speaking lady but understood Georgian lying in bed without any discomfort or any distress noted. DX of Chest pain but pt denies any chest pain. pt had heplock on her right hand gauge 20 and right AC gauge 18 both patent and intact. she's A-FIB heart rate 58 with PVC on tele monitor. Kept her warm and comfortable at all times. Encourage pt to use the call light system if she needs some help and needs the nurse. Place call light at reach.
[2022-10-19] MEDS: ENOXAPARIN SODIUM 100 MG/ML DISP.SYRIN SQ SCH (21:37)
[2022-10-20 00:04] VITALS: BP 132/62
--- NOTE | 2022-10-20 00:48 | NUR ---
TELE LABEL FUSER TENDER NOTES PT RESTING COMFORTABLY IN BED WITHOUT ANY DISTRESS OR ANY DISCOMFORT NOTED. VITAL STABLE , A-FIB PER TELE MONITOR. KEPT HER WARM AND COMFORTABLE AT ALL TIMES. WILL CONTINUE MONITORING. PLACE CALL LIGHT AT REACH.
[2022-10-20 04:00] VITALS: BP 133/67
--- NOTE | 2022-10-20 04:58 | NUR ---
tele hand i cutter notes pt remains sleeping comfortably in bed without any discomfort or any distress noted. Respiration even and non-labored . she still on tele A-FIB heart rate 69 per monitor. Kept her warm and comfortable at all times. will continue monitoring.
--- NOTE | 2022-10-20 06:48 | NUR ---
tele multiple tube winding machine operator closing notes Pt woke up and denies any pain at this time. She did her own morning care but we changed all her beddings for pt comfort. all due meds given and all needs met. Tele A-FIB heart rate 67 per monitor. Kept her warm and comfortable at all times. Bed in low and lock in position with side rails x2 up and place call light at reach. will endorse to am nurse for continuity of care.
[2022-10-20 07:01] LABS: BASOPHILS % (AUTO) 0.5 % (0.0-2.0); EOSINOPHILS % (AUTO) 2.2 % (0.0-6.0); HEMATOCRIT 35 % (33-45); HEMOGLOBIN 11.7 g/dL (11.5-14.8); LYMPHOCYTES # (AUTO) 1.7 K/uL (0.8-4.8); LYMPHOCYTES % (AUTO) 30.4 % (20.0-44.0); MEAN CORPUSCULAR HGB CONC 33 g/dl (31.0-36.0); MEAN CORPUSCULAR VOLUME 82 fL (82-100); MONOCYTES # (AUTO) 0.5 K/uL (0.1-1.30); MONOCYTES % (AUTO) 7.9 % (2.0-12.0); NEUTROPHILS # (AUTO) 3.4 K/uL (1.8-8.9); PLATELET COUNT (AUTO) 234 K/uL (150-450); WHITE BLOOD COUNT (AUTO) 5.7 K/uL (4.3-11.0)
--- NOTE | 2022-10-20 07:05 | NUR ---
pill machine operator opening notes Pt awake A/O x4 and denies any pain at this time. Charlie A-FIB heart rate 67 per monitor. Troponin level at 319 this am as endorsed by third shift lieutenant nurse & trending high. MD informed--Dr. Crook who was at the hallway at the time. Kept patient warm and comfortable at all times. Repositioned patient in bed, Bed in low and lock in position with side rails x2 up and place call light at reach. will continue to monitor the patient for continuity of care.
[2022-10-20 07:09] LABS: ALBUMIN 3.3 g/dL (3.4-5.0); BILIRUBIN,TOTAL 0.8 mg/dL (0.2-1.0); CALCIUM, SERUM 8.6 mg/dL (8.5-10.1); CREATININE 0.6 mg/dL (0.6-1.3); MAGNESIUM 1.8 mg/dL (1.8-2.4); PHOSPHORUS 3.7 mg/dL (2.5-4.9); POTASSIUM 3.2 mmol/L (3.5-5.1)
[2022-10-20] MEDS ORDERED: PANTOPRAZOLE 40 MG TABLET.DR PO SCH (07:30)
[2022-10-20 08:00] VITALS: BP 122/63
[2022-10-20] MEDS: PANTOPRAZOLE 40 MG TABLET.DR PO SCH (08:34)
[2022-10-20] MEDS: ATORVASTATIN 10 MG TABLET PO SCH (08:35)
[2022-10-20] MEDS: ASPIRIN 81 MG TAB.CHEW PO SCH (08:35)
[2022-10-20] MEDS: predniSONE 5 MG TABLET PO SCH ×2 (08:36→08:44)
[2022-10-20] MEDS: HYDROXYCHLOROQUINE 200 MG TABLET PO SCH ×2 (08:36→16:44)
[2022-10-20] MEDS: ENOXAPARIN SODIUM 100 MG/ML DISP.SYRIN SQ SCH ×2 (08:40→21:13)
[2022-10-20] MEDS: DILTIAZEM HCL CD 240 MG PO SCH (08:42)
[2022-10-20] MEDS: KETOROLAC EYE 0.5% 3 ML BOTTLE LEFTEYE SCH ×5 (08:45→21:32)
[2022-10-20] MEDS: POTASSIUM CHLORIDE 20 MEQ TAB.PRT.SR PO SCH ×2 (11:02→12:06)
[2022-10-20] MEDS: DIGOXIN 0.25 MG TABLET PO SCH (12:07)
[2022-10-20 16:00] VITALS: BP 112/65
[2022-10-20] MEDS: LATANOPROST EYE DROP 0.005% 2.5 ML BOTTLE EACHEYE SCH (17:02)
--- NOTE | 2022-10-20 18:48 | NUR ---
Pt awake A/O x4 and denies any pain at this time. No SOB or distress noted. On Tele A-FIB heart rate at 68 per monitor. Speaks samoan, family at bedside as nitrocellulose operator. All due meds given as ordered. IV access at Right hand #20g SL, C/D/I. Kept patient warm and comfortable at all times. Bed in low and lock in position with side rails x2 up and place call light at reach. Patient will be endorsed to pm nurse for continuity of care.
--- NOTE | 2022-10-20 19:30 | NUR ---
FURNITURE LUMBER PRODUCTION WORKER NOTES RECEIVED SITTING ON EDGE OF BED,A/O X4,BREATHING REGULAR,NOT IN ANY FORM OF DISTRESS.SPEAK BELIZEAN,UNDERSTAND LITTLE TURKISH.DENIES CHEST DISCOMFORTS.SALINE LOCK RIGHT HAND INTACT AND PATENT.AMBULATE TO THE RESTROOM WITH STEADY GAIT.CONTROLLED AFIB ON TELE MONITOR-76.WILL CONTINUE TO MONITOR STATUS.CALL LIGHT IN REACH,NEEDS ANTICIPATED.
[2022-10-20 20:00] VITALS: BP 119/73
--- NOTE | 2022-10-20 21:00 | NUR ---
BALANCE TRUING INSPECTOR NOTED REFUSED KETOROLAC EYE GTTS,COMMENTED ITS ONLY FOR FIVE DAYS ACCORDING TO HER EYE DOCTOR.
[2022-10-21] VITALS (7 sets, daily range): BP systolic 102–144; BP diastolic 56–70
[2022-10-21 06:26] LABS: BASOPHILS % (AUTO) 0.7 % (0.0-2.0); EOSINOPHILS % (AUTO) 1.9 % (0.0-6.0); HEMATOCRIT 33 % (33-45); HEMOGLOBIN 10.7 g/dL (11.5-14.8); LYMPHOCYTES # (AUTO) 1.3 K/uL (0.8-4.8); LYMPHOCYTES % (AUTO) 24.1 % (20.0-44.0); MEAN CORPUSCULAR HGB CONC 33 g/dl (31.0-36.0); MEAN CORPUSCULAR VOLUME 84 fL (82-100); MONOCYTES # (AUTO) 0.6 K/uL (0.1-1.30); MONOCYTES % (AUTO) 10.3 % (2.0-12.0); NEUTROPHILS # (AUTO) 3.5 K/uL (1.8-8.9); PLATELET COUNT (AUTO) 210 K/uL (150-450); RED BLOOD CELL COUNT(AUTO) 3.92 MIL/uL (4.0-5.2); WHITE BLOOD COUNT (AUTO) 5.5 K/uL (4.3-11.0)
[2022-10-21 06:31] LABS: CALCIUM, SERUM 8.2 mg/dL (8.5-10.1); CREATININE 0.6 mg/dL (0.6-1.3); POTASSIUM 3.2 mmol/L (3.5-5.1)
--- NOTE | 2022-10-21 06:53 | NUR ---
BUSINESS JOB TITLES NOTES SLEEP WELL AT NIGHT,NO COMPLAINTS OF CHEST PAIN THRU OUT SHIFT.ALL DUE MEDS ADMINISTERED.CALL LIGHT IN REACH,NEEDS ATTENDED.WILL ENDORSE TO DAY NURSE FOR TERRI.
--- NOTE | 2022-10-21 07:20 | NUR ---
RN OPENING NOTE RECEIVED PATIENT IN BED, AWAKE A/O X4, VERBALLY RESPONSIVE AND ABLE TO MAKE NEEDS KNOWN. NO SIGNS OF ACUTE DISTRESS NOTED. ON ROOM AIR, TOLERATING WELL. NO SOB NOTED, BREATHING EVEN AND UNLABORED. NOTED WITH IV ACCESS ON RIGHT HAND #20G, INTACT AND PATENT, FLUSHES WELL AND SALINE LOCKED. ON WEAVER WIRE LOOM SHOWING CONTROLLED AFIB, HR @75. DENIES ANY PAIN OR DISCOMFORT AT THIS TIME. SAFETY MEASURE IN PLACE. BED IN LOW AND LOCKED POSITION, SIDE RAILS UP X2, CALL LIGHT PLACED WITHIN EASY REACH. WILL CONTINUE TO MONITOR PATIENT.
[2022-10-21] MEDS: ATORVASTATIN 10 MG TABLET PO SCH (08:32)
[2022-10-21] MEDS: PANTOPRAZOLE 40 MG TABLET.DR PO SCH (08:32)
[2022-10-21] MEDS: HYDROXYCHLOROQUINE 200 MG TABLET PO SCH ×2 (08:32→16:21)
[2022-10-21] MEDS: ASPIRIN 81 MG TAB.CHEW PO SCH (08:32)
[2022-10-21] MEDS: DILTIAZEM HCL CD 240 MG PO SCH (08:33)
[2022-10-21] MEDS: ENOXAPARIN SODIUM 100 MG/ML DISP.SYRIN SQ SCH ×2 (08:34→20:45)
[2022-10-21] MEDS: predniSONE 5 MG TABLET PO SCH (09:16)
[2022-10-21] MEDS: POTASSIUM CHLORIDE 20 MEQ TAB.PRT.SR PO SCH ×2 (09:40→10:58)
--- NOTE | 2022-10-21 10:27 | NUR ---
WOUND CARE CONSULT: PT SEEN FOR "RASH ON LEGS", PRESENT ON ADMISSION. PT HAS ANA APPEARING SKIN CONDITION TO LEGS, PRESENT ON ADMISSION. DEFER TO PMD. PT IS AMBULATORY AND CONTINENT. WILL SEE PRN.
[2022-10-21] MEDS: DIGOXIN 0.25 MG TABLET PO SCH (12:37)
[2022-10-21] MEDS: KETOROLAC EYE 0.5% 3 ML BOTTLE LEFTEYE SCH ×3 (12:38→20:44)
[2022-10-21] MEDS: LATANOPROST EYE DROP 0.005% 2.5 ML BOTTLE EACHEYE SCH (17:22)
--- NOTE | 2022-10-21 18:50 | NUR ---
RN CLOSING NOTE PATIENT IN BED, AWAKE A/O X4, VERBALLY RESPONSIVE AND ABLE TO MAKE NEEDS KNOWN. NO SIGNS OF ACUTE DISTRESS NOTED. REMAINS STABLE ON ROOM AIR. NO SOB NOTED, BREATHING EVEN AND UNLABORED. WITH IV ACCESS ON RIGHT HAND #20G AND LEFT FOREARM #20G, INTACT AND PATENT, FLUSHES WELL AND SALINE LOCKED. CONTINUE ON DOG WARDEN SHOWING CONTROLLED AFIB, HR @75. DENIES ANY PAIN OR DISCOMFORT AT THIS TIME. SAFETY MEASURE IN PLACE. BED IN LOW AND LOCKED POSITION, SIDE RAILS UP X2, CALL LIGHT PLACED WITHIN EASY REACH. WILL ENDORSE TO NEXT SHIFT FOR TERRI.
--- NOTE | 2022-10-21 19:15 | NUR ---
ADJUSTO WRITER OPERATOR NOTES CONTROLLED AFIB-73 ON TELE MONITOR,LYING ON BED,A/O X4,NO SOB,DENIES CHEST PAIN,INSTRUCTED NPO POST MIDNIGHT GOING FOR RIGHT LEFT HEART CATH,WITH SIGNED CONSENT ON CHART.SALINE LOCK RIGHT AND LEFT HAND INTACT AND PATENT.CALL LIGHT IN REACH,NEEDS ANTICIPATED.
[2022-10-22] VITALS (17 sets, daily range): BP systolic 118–149; BP diastolic 39–99
--- NOTE | 2022-10-22 06:32 | NUR ---
REGISTER REPAIRER NOTES FAIRLY RESTED AT NIGHT.DENIES CHEST PAIN,NPO SINCE MIDNIGHT GOING FOR RIGHT AND LEFT HEART CATH BY DR LANIER.LOVENOX HOLD PER DR LANIER ORDER.CALL LIGHT IN REACH.NO DISTRESS.NEEDS ATTENDED.
[2022-10-22 07:09] LABS: BASOPHILS % (AUTO) 0.6 % (0.0-2.0); EOSINOPHILS % (AUTO) 1.7 % (0.0-6.0); HEMATOCRIT 33 % (33-45); HEMOGLOBIN 11.2 g/dL (11.5-14.8); LYMPHOCYTES # (AUTO) 1.5 K/uL (0.8-4.8); LYMPHOCYTES % (AUTO) 28.7 % (20.0-44.0); MEAN CORPUSCULAR HGB CONC 34 g/dl (31.0-36.0); MEAN CORPUSCULAR VOLUME 83 fL (82-100); MONOCYTES # (AUTO) 0.5 K/uL (0.1-1.30); MONOCYTES % (AUTO) 9.3 % (2.0-12.0); NEUTROPHILS # (AUTO) 3.1 K/uL (1.8-8.9); NEUTROPHILS % (AUTO) 59.7 % (43.0-81.0); PLATELET COUNT (AUTO) 234 K/uL (150-450); RED BLOOD CELL COUNT(AUTO) 4.03 MIL/uL (4.0-5.2); WHITE BLOOD COUNT (AUTO) 5.2 K/uL (4.3-11.0)
[2022-10-22 07:23] LABS: CALCIUM, SERUM 8.6 mg/dL (8.5-10.1); CREATININE 0.6 mg/dL (0.6-1.3); POTASSIUM 3.3 mmol/L (3.5-5.1)
[2022-10-22] MEDS: PANTOPRAZOLE 40 MG TABLET.DR PO SCH (07:30)
--- NOTE | 2022-10-22 07:30 | NUR ---
SHOVEL LOGGER OPENING NOTE RECEIVED PATIENT IN BED, AWAKE A/O X4, VERBALLY RESPONSIVE AND ABLE TO MAKE NEEDS KNOWN. NO SIGNS OF ACUTE DISTRESS NOTED. STABLE ON ROOM AIR. NO SIGNS OF RESPIRATORY DISTRESS/SOB NOTED. PT ON NPO FOR HEART CATH PROCEDURE. WITH IV ACCESS ON RIGHT HAND #20G AND LEFT FOREARM #20G, INTACT AND PATENT, FLUSHES WELL AND SALINE LOCKED. CONTINUE ON SALES SUPPORT REP CONTROLLED AFIB 75. DENIES ANY PAIN OR DISCOMFORT AT THIS TIME. SAFETY MEASURE IN PLACE. BED IN LOW AND LOCKED POSITION, SIDE RAILS UP X2, CALL LIGHT PLACED WITHIN EASY REACH. WILL ADMINISTER SCHEDULED MEDS AND CONTINUE TO MONITOR.
[2022-10-22] MEDS: METFORMIN 500 MG TABLET PO SCH ×2 (08:25→16:52)
[2022-10-22] MEDS: DILTIAZEM HCL CD 240 MG PO SCH (08:25)
[2022-10-22] MEDS: ASPIRIN 81 MG TAB.CHEW PO SCH (08:25)
[2022-10-22] MEDS: ATORVASTATIN 10 MG TABLET PO SCH (08:26)
[2022-10-22] MEDS: HYDROXYCHLOROQUINE 200 MG TABLET PO SCH ×2 (08:26→16:52)
[2022-10-22] MEDS: SILDENAFIL CITRATE 20 MG TABLET PO SCH ×2 (08:26→16:52)
[2022-10-22] MEDS: ENOXAPARIN SODIUM 100 MG/ML DISP.SYRIN SQ SCH ×2 (08:26→20:52)
[2022-10-22] MEDS: predniSONE 5 MG TABLET PO SCH (08:26)
[2022-10-22] MEDS: KETOROLAC EYE 0.5% 3 ML BOTTLE LEFTEYE SCH ×4 (08:36→20:27)
[2022-10-22] MEDS ORDERED: IODIXANOL 150 ML IV ONE (10:06)
[2022-10-22] MEDS ORDERED: IV NS 0.9% 500 ML IV ONE ×2 (10:06→10:50)
[2022-10-22] MEDS ORDERED: IV SET PRIMARY PUMP SET 1 EA INFUS.SET MC ONE (10:06)
[2022-10-22] MEDS ORDERED: LIDOCAINE HCL/MPF 1% 30 ML VIAL IJ ONE (10:07)
--- NOTE | 2022-10-22 10:26 | NUR ---
EYE CARE PROFESSIONAL NOTES PT TRANSPORTED TO SYSTEMS TESTING LABORATORY TECHNICIAN FOR CARDIAC CATHETERIZATION PROCEDURE. PT ON NPO, IV ACCESS PATENT AND INTACT. NO DISTRESS NOTED. ALL CONSENT FORMS SIGNED.
[2022-10-22] MEDS ORDERED: IODIXANOL 320MG/ML 100 ML IV ONE ×2 (10:41→11:19)
[2022-10-22] MEDS ORDERED: MIDAZOLAM HCL 2 MG/2ML VIAL ONE (11:06)
[2022-10-22] MEDS ORDERED: FENTANYL PF 100MCG/2ML AMPUL ONE (11:06)
--- NOTE | 2022-10-22 12:55 | NUR ---
RN OPENING NOTE: PT CAME FROM MATERIAL CONTROL ASSOCIATE ASSISTED BY CHELSI HILARIO RN AND 1 TECH. PT I IN BED AOX3 BELARUSIAN SPEAKING. PT IN SUPINE POSITION. NO RESP DISTRESS NOTED. NO SOB. BODY CHECKED DONE. NOTED WITH S/P R GROIN FEMORAL CATH. NOTED WITH MINIMAL BLEEDING NOTED. PT NOTED WITH IV ACCESS TO R HAND 20G AND LFA 20G. FLUSHED WITH NS. PATENT AND INTACT. NO INFILTRATION NOTED. CALL LIGHT WITHIN REACH. ON CLOSE MONITORING FOR BLEEDING.
[2022-10-22] MEDS: POTASSIUM CL. PREMIX PERIPHER. 50 ML IV SCH ×2 (13:00→13:19)
--- NOTE | 2022-10-22 13:00 | NUR ---
MASOOD NOTES: PATIENT REFUSE IV KCL. PER PT ITS CAUSING HER PAIN. NOTIFIED WITH ORDER TO D/C IV KCL AND CHANGED TO KCL 40 MEQ PO ONCE. Addendum: 10/22/22 at 1442 by NELSY SAL RN CLARIFICATION: IV KCL CHANGED TO KCL 20MEQ PO ONCE. AWARE
[2022-10-22] MEDS: DIGOXIN 0.25 MG TABLET PO SCH (13:20)
[2022-10-22] MEDS: ACETAMINOPHEN 325 MG TABLET PO PRN (13:34)
[2022-10-22] MEDS ORDERED: POTASSIUM CHLORIDE 20 MEQ TAB.PRT.SR PO ONE (14:00)
--- NOTE | 2022-10-22 14:30 | NUR ---
DR. ADAMS AT BEDSIDE.
[2022-10-22] MEDS: LATANOPROST EYE DROP 0.005% 2.5 ML BOTTLE EACHEYE SCH (17:33)
[2022-10-22] MEDS ORDERED: BRIM5DRO5 EACHEYE (18:08)
[2022-10-22] MEDS ORDERED: DICL100G26 TP (18:13)
--- NOTE | 2022-10-22 19:09 | NUR ---
CLOSING RN NOTE: PT AOX3. BHUTANESE SPEAKING. PT ABLE TO TOLERATE CURRENT DIET.S/P R GROIN FEMORAL CATH. NO BLEEDING NOTED. NO ABD PAIN. INSTRUCT PT TO KEEP LEGS STRAIGHT AND NO TO BEND. PT REMAINS CALM AND STABLE.ENDORSE TO SMOCKER CHUYITA CORREIA.
--- NOTE | 2022-10-22 19:29 | NUR ---
ELECTRO MECHANICAL ENGINEER. INITIAL ASSESSMENT. RECEIVED THE PT REST IN BED. AWAKE, ALERT, FOLLOW COMMANDS. MOSAIC TILE MAKER SHOWING A FIB CONTROLLED. PT IS ROOM AIR. SAT 98%. NO ACUTE DISTRESS NOTED. HOB ELEVATED. RT FEMERAL PROCEDURE SITE GAUZE SOCKED WITH BLOOD. PER DAY SHIFT RN STATED NOT NEW. WILL MONITOR.
[2022-10-23] VITALS (27 sets, daily range): BP systolic 94–146; BP diastolic 37–108
[2022-10-23 05:04] LABS: BASOPHILS % (AUTO) 0.4 % (0.0-2.0); EOSINOPHILS % (AUTO) 1.8 % (0.0-6.0); HEMATOCRIT 33 % (33-45); HEMOGLOBIN 10.6 g/dL (11.5-14.8); LYMPHOCYTES # (AUTO) 1.1 K/uL (0.8-4.8); LYMPHOCYTES % (AUTO) 19.6 % (20.0-44.0); MEAN CORPUSCULAR HGB CONC 33 g/dl (31.0-36.0); MEAN CORPUSCULAR VOLUME 83 fL (82-100); MONOCYTES # (AUTO) 0.5 K/uL (0.1-1.30); MONOCYTES % (AUTO) 9.2 % (2.0-12.0); NEUTROPHILS # (AUTO) 3.9 K/uL (1.8-8.9); PLATELET COUNT (AUTO) 226 K/uL (150-450); RED BLOOD CELL COUNT(AUTO) 3.91 MIL/uL (4.0-5.2); WHITE BLOOD COUNT (AUTO) 5.6 K/uL (4.3-11.0)
[2022-10-23 05:25] LABS: CALCIUM, SERUM 8.2 mg/dL (8.5-10.1); CREATININE 0.6 mg/dL (0.6-1.3); MAGNESIUM 1.7 mg/dL (1.8-2.4); PHOSPHORUS 3.7 mg/dL (2.5-4.9); POTASSIUM 3.5 mmol/L (3.5-5.1)
--- NOTE | 2022-10-23 06:40 | NUR ---
CONTINUOUS DRIER OPERATOR, AM CARE GIVEN. OXYGEN 2 L STARTED AT 0600. PT HAVING SLEEP APNEA. PT IS NPO SINCE 0000 FOR OLGA.IV RT AND LT HAND 20G SALINE LOCK. A FEBRILE. MOVER SHOWING A FIB. OXYGEN 2L N/C. HOB ELEVATED. WILL CONTINUE TO MONITOR VITALS.
--- NOTE | 2022-10-23 07:30 | NUR ---
OPENING NOTE: REPORT RECEIVED FROM CHUYITA CORREIA. LABS AND ORDERS REVIEWED DURING REPORT. PLAN FOR TODAY IS FOR PATIENT TO HAVE A OLGA BY DR LANIER AND DR ADAMS, PER REPORT CONSENT IS SIGNED AND ON CHART. PT APPEARS TO BE ALERT OX4, MOSTLY CITIZEN OF THE [place] SPEAKING, PT DOES APPEAR TO UNDERSTAND AND SPEAK QATARI ENOUGH TO COMMUNICATE WITHOUT DIFFICULTY. PER REPORT PT IS ON RA OXYGEN UNLESS SLEEPING, AT THAT TIME PT REQUIRES 2L NC D/T SLEEP APNEA. PT IS NPO SINCE MIDNIGHT FOR OLGA. PT WILL BE GIVEN ALL PER MORNING MEDS EXCEPT LOVENOX THIS MORNING WITH SIPS OF WATER ONLY. PT CHECKED ON HOURLY AND PRN BY NURSING STAFF.
[2022-10-23] MEDS ORDERED: MAGNESIUM OXIDE 400 MG TABLET PO ONE (08:00)
[2022-10-23] MEDS ORDERED: POTASSIUM CHLORIDE 20 MEQ TAB.PRT.SR PO ONE (08:00)
[2022-10-23] MEDS: ENOXAPARIN SODIUM 100 MG/ML DISP.SYRIN SQ SCH (08:32)
[2022-10-23] MEDS: METFORMIN 500 MG TABLET PO SCH ×3 (09:00→17:13)
[2022-10-23] MEDS: KETOROLAC EYE 0.5% 3 ML BOTTLE LEFTEYE SCH ×5 (09:00→20:19)
[2022-10-23] MEDS: ASPIRIN 81 MG TAB.CHEW PO SCH (09:10)
[2022-10-23] MEDS: predniSONE 5 MG TABLET PO SCH (09:10)
[2022-10-23] MEDS: HYDROXYCHLOROQUINE 200 MG TABLET PO SCH ×2 (09:10→17:00)
[2022-10-23] MEDS: ATORVASTATIN 10 MG TABLET PO SCH (09:11)
[2022-10-23] MEDS: SILDENAFIL CITRATE 20 MG TABLET PO SCH ×2 (09:11→17:13)
[2022-10-23] MEDS: PANTOPRAZOLE 40 MG TABLET.DR PO SCH (09:11)
[2022-10-23] MEDS: DILTIAZEM HCL CD 240 MG PO SCH (09:12)
--- NOTE | 2022-10-23 12:48 | NUR ---
OLGA COMPLETE. PER DR LANIER PROCEDURE WAS UNEVENTFUL. PT IS AWAKE AT THIS TIME. WILL CONTINUE TO MONITOR. WHEN PATIENT IS FULLY AWAKE AND FEELS LIKE EATING PT CAN EAT LUNCH PER DR LANIER.
[2022-10-23] MEDS ORDERED: Magnesium 1GM/D5W 100ML PREMIX 100 ML IV SCH (13:00)
[2022-10-23] MEDS: DIGOXIN 0.25 MG TABLET PO SCH (13:33)
[2022-10-23] MEDS: LATANOPROST EYE DROP 0.005% 2.5 ML BOTTLE EACHEYE SCH (17:39)
--- NOTE | 2022-10-23 17:53 | NUR ---
PT TRANSFERRED TO BED 112-1 VIA BED USING ACLS PROTOCOL. GARRY CORREIA GIVEN BEDSIDE REPORT. PT'S DINNER TRAY BROUGHT WITH PATIENT SINCE SHE DIDN'T WANT TO EAT IT YET. PT USED BEDSIDE COMMODE BEFORE TRANSPORTING PATIENT. PT CHECKED ON HOURLY AND PRN BY NURSING STAFF.
--- NOTE | 2022-10-23 18:05 | NUR ---
RN OPENING NOTE PATIENT TRANSFERRED FROM ICU, IN BED AOX3 PORTUGUESE SPEAKING. ON RA, NO RESP DISTRESS NOTED. NO SOB. S/P R GROIN FEMORAL CATH, DRESSING INTACT. IV ACCESS R HAND 20G AND LFA 20G, FLUSHED WITH NS, PATENT AND INTACT. PT IS AMBULATORY WITH BPR, SAFETY MEASURES IMPLEMENTED, BED LOCKED AND IN LOWEST POSITION, CALL LIGHT WITHIN REACH. WILL ENDORSE TO THE NEXT SHIFT FOR TERRI.
--- NOTE | 2022-10-23 19:30 | NUR ---
CAR FRAMER OPENING NOTE RECEIVED PATIENT IN BED, AWAKE, AOX4, ABLE TO VERBALIZE NEEDS. CURRENTLY ON RA, TOLERATING WELL, SATING @ 94%. ELECTRIC METER TESTER READS CONTROLLED AFIB, HR IN 90s. NO S/SX OF ACUTE RESPI DISTRESS NOTED AT THIS TIME. NO SOB, BREATHING IS EVEN AND UNLABORED. IV ACCESS ON R WRIST, #20g AND LFA #20g, BOTH PATENT, INTACT AND FLUSHING WELL. NO FLUIDS INFUSING AT THIS TIME. R SIDE GROIN DRESSING NOTED, DRY AND INTACT; S/P CARDICA CATH. ALL SAFETY MEASURES IN PLACE: BED LOCKED IN LOW POSITION, BED ALARM ON, SR UP X 2, CALL LIGHT AND TABLE WITHIN EASY REACH. WILL CONTINUE TO MONITOR PT.
--- NOTE | 2022-10-23 23:41 | NUR ---
RN NOTES Spoke to Alley from [facility] regarding transferring patient to [facility] . Requested some documents to be faxed over. Read CM notes and spoke to supervisor instrument maintenance to verify. Faxed recent notes to Alley fax # [phone]
[2022-10-24] VITALS: BP 98/55
[2022-10-24 04:00] VITALS: BP 123/78
--- NOTE | 2022-10-24 07:03 | NUR ---
JAVA DEVELOPER CONSULTANT OPENING NOTES RECEIVED PATIENT SLEEPING IN BED, ON ROOM AIR, NO S/S OF RESPIRATORY DISTRESS. A/Ox4, ABLE TO MAKE NEEDS KNOWN, MALDIVIAN SPEAKING. ON TELE MONITORING SHOWING A-FIB HR 88, NO S/S OF CARDIAC DISTRESS. IV ACCESS LFA #20 G AND R WRIST #20G S/L, INTACT AND PATENT. PATIENT CONTINENT HAS BRP, AMBULATORY. SKIN ISSUES: R SIDE GROIN DRESSING. SAFETY MEASURES IN PLACE: BED LOCKED AND IN LOWEST POSITION, HOB ELEVATED, CALL LIGHT WITHIN REACH, SIDE RAILS UPx2. WILL CONTINUE TO MONITOR.
[2022-10-24 08:00] VITALS: BP 138/68
[2022-10-24] MEDS: PANTOPRAZOLE 40 MG TABLET.DR PO SCH (08:23)
[2022-10-24] MEDS: METFORMIN 500 MG TABLET PO SCH ×2 (08:24→17:05)
[2022-10-24] MEDS: ASPIRIN 81 MG TAB.CHEW PO SCH (08:24)
[2022-10-24] MEDS: predniSONE 5 MG TABLET PO SCH (08:24)
[2022-10-24] MEDS: KETOROLAC EYE 0.5% 3 ML BOTTLE LEFTEYE SCH ×4 (08:24→20:45)
[2022-10-24] MEDS: ATORVASTATIN 10 MG TABLET PO SCH (08:24)
[2022-10-24] MEDS: HYDROXYCHLOROQUINE 200 MG TABLET PO SCH ×2 (08:24→17:05)
[2022-10-24] MEDS: DILTIAZEM HCL CD 240 MG PO SCH (08:24)
[2022-10-24] MEDS: SILDENAFIL CITRATE 20 MG TABLET PO SCH ×2 (08:25→17:05)
[2022-10-24 12:00] VITALS: BP 127/67
[2022-10-24] MEDS: DIGOXIN 0.25 MG TABLET PO SCH (13:08)
[2022-10-24 16:00] VITALS: BP 123/52
[2022-10-24] MEDS: LATANOPROST EYE DROP 0.005% 2.5 ML BOTTLE EACHEYE SCH (17:05)
--- NOTE | 2022-10-24 18:47 | NUR ---
ACID REGENERATOR CLOSING NOTES PATIENT AWAKE IN BED, STABLE ON ROOM AIR, NO S/S OF RESPIRATORY DISTRESS. A/Ox4, ABLE TO MAKE NEEDS KNOWN, AFGHAN SPEAKING. ON TELE MONITORING SHOWING A-FIB HR 85, NO S/S OF CARDIAC DISTRESS. IV ACCESS LFA #20 G AND R WRIST #20G S/L, INTACT AND PATENT. PATIENT CONTINENT HAS BRP, AMBULATORY. SKIN ISSUES: R SIDE GROIN DRESSING. SAFETY MEASURES MAINTAINED: BED LOCKED AND IN LOWEST POSITION, HOB ELEVATED, CALL LIGHT WITHIN REACH, SIDE RAILS UPx2. WILL ENDORSE TO NEXT SHIFT ANY TERRI.
--- NOTE | 2022-10-24 19:30 | NUR ---
FILTRATION PLANT OPERATOR OPENING NOTES RECEIVED PT AWAKE IN BED, SITTING ON EDGE OF BED. A/O X4, THAI/CROATIAN SPEAKING, ABLE TO MAKE NEEDS KNOWN. ON RA WITH NO S/S OF RESPIRATORY DISTRESS. ON TELE MONITORING SHOWING A-FIB HR 77, NO S/S OF CARDIAC DISTRESS. IV ACCESS LFA #20 G AND R WRIST #20G S/L, INTACT AND PATENT. PATIENT CONTINENT, BRP, AMBULATORY. SAFETY MEASURES IN PLACE: BED LOCKED AND IN LOWEST POSITION, HOB ELEVATED, CALL LIGHT WITHIN REACH, SIDE RAILS UPx3. WILL CONTINUE TO MONITOR AND ASSIST.
[2022-10-24 20:00] VITALS: BP 118/68
--- NOTE | 2022-10-24 20:49 | NUR ---
RN NOTES Spoke to Deana, contingents supervisor regarding message from Dr. Woody Kumari to sign the form regarding transfer to [facility] but unable to find the form and manager of case gone at this time. Per contingents supervisor will have to endorse in AM. Gen duran RN notified
[2022-10-25] VITALS: BP 109/72
[2022-10-25 04:00] VITALS: BP 115/67
--- NOTE | 2022-10-25 06:46 | NUR ---
PROSTHODONTIST CLOSING NOTES PT AWAKE IN BED. A/O X4, GRENADIAN/JAPANESE SPEAKING, ABLE TO MAKE NEEDS KNOWN. STABLE ON O2 2L VIA NC WITH NO S/S OF RESPIRATORY DISTRESS. ON TELE MONITORING SHOWING A-FIB HR 68, NO S/S OF CARDIAC DISTRESS. IV ACCESS LFA #20 G AND R WRIST #20G S/L, INTACT, PATENT, FLUSHING WELL. PATIENT CONTINENT, BRP, AMBULATORY. ALL CARE PROVIDED. SAFETY MEASURES MAINTAINED: BED LOCKED AND IN LOWEST POSITION, HOB ELEVATED, CALL LIGHT WITHIN REACH, SIDE RAILS UPx3. WILL ENDORSE TERRI TO DAY SHIFT NURSE.
--- NOTE | 2022-10-25 07:00 | NUR ---
RN OPENING NOTE PATIENT IN BED AOX3 JAMAICAN SPEAKING. ON RA, NO RESP DISTRESS NOTED. NO SOB. S/P R GROIN FEMORAL CATH, DRESSING INTACT. IV ACCESS R HAND 20G AND LFA 20G, FLUSHED WITH NS, PATENT AND INTACT. PT IS AMBULATORY WITH BPR, SAFETY MEASURES IMPLEMENTED, BED LOCKED AND IN LOWEST POSITION, CALL LIGHT WITHIN REACH. WILL CONTINUE TO MONITOR.
[2022-10-25] MEDS: PANTOPRAZOLE 40 MG TABLET.DR PO SCH (07:36)
[2022-10-25 08:00] VITALS: BP 137/83
[2022-10-25] MEDS: KETOROLAC EYE 0.5% 3 ML BOTTLE LEFTEYE SCH ×4 (08:23→21:38)
[2022-10-25] MEDS: DILTIAZEM HCL CD 240 MG PO SCH (08:29)
[2022-10-25] MEDS: SILDENAFIL CITRATE 20 MG TABLET PO SCH ×2 (08:29→17:08)
[2022-10-25] MEDS: ASPIRIN 81 MG TAB.CHEW PO SCH (08:30)
[2022-10-25] MEDS: METFORMIN 500 MG TABLET PO SCH ×2 (08:30→17:08)
[2022-10-25] MEDS: ATORVASTATIN 10 MG TABLET PO SCH (08:30)
[2022-10-25] MEDS: HYDROXYCHLOROQUINE 200 MG TABLET PO SCH ×2 (08:30→17:07)
[2022-10-25] MEDS: predniSONE 5 MG TABLET PO SCH (08:35)
[2022-10-25 12:00] VITALS: BP 118/65
[2022-10-25] MEDS: DIGOXIN 0.25 MG TABLET PO SCH (12:29)
[2022-10-25 16:00] VITALS: BP 115/60
[2022-10-25] MEDS: LATANOPROST EYE DROP 0.005% 2.5 ML BOTTLE EACHEYE SCH (17:08)
--- NOTE | 2022-10-25 19:01 | NUR ---
RN CLOSING NOTE PATIENT IN BED AOX3 ECUADOREAN SPEAKING. ON RA, NO RESP DISTRESS NOTED. NO SOB. S/P R GROIN FEMORAL CATH, DRESSING INTACT. IV ACCESS R HAND 20G AND LFA 20G, FLUSHED WITH NS, PATENT AND INTACT. PT IS AMBULATORY WITH BPR, SAFETY MEASURES IMPLEMENTED, BED LOCKED AND IN LOWEST POSITION, CALL LIGHT WITHIN REACH, FAMILY AT BEDSIDE. WILL ENDORSE TO THE SUPERVISOR FUR FLOOR WORKER NURSE.
--- NOTE | 2022-10-25 19:10 | NUR ---
ETL DATABASE DEVELOPER opening note Received pt awake, A&Ox3, verbal, lao speaking, in stable condition, breathing even and unlabored, on RA, denied any pain at this time
[2022-10-25 20:00] VITALS: BP 115/58
[2022-10-26] VITALS: BP 96/47
[2022-10-26 04:00] VITALS: BP 98/45
--- NOTE | 2022-10-26 06:34 | NUR ---
TRESTLEMAN closing note pt resting in bed, awake, in stable condition, breathing even and unlabored, 0 c/o pain, all due meds given per MD orders, tolerated well, all basic needs met and anticipated, bed bath rendered well, all safety measures in place, will continue to monitor
--- NOTE | 2022-10-26 08:00 | NUR ---
RN OPENING NOTE PATIENT IN BED AOX3 PALAUAN SPEAKING. ON RA, NO RESP DISTRESS NOTED. NO SOB. S/P R GROIN FEMORAL CATH, DRESSING INTACT. IV ACCESS R WRIST 20G AND LFA 20G, FLUSHED WITH NS, PATENT AND INTACT. PT IS AMBULATORY WITH BPR, SAFETY MEASURES IMPLEMENTED, BED LOCKED AND IN LOWEST POSITION, CALL LIGHT WITHIN REACH. WILL CONTINUE TO MONITOR.
[2022-10-26] MEDS: PANTOPRAZOLE 40 MG TABLET.DR PO SCH (08:34)
[2022-10-26] MEDS: HYDROXYCHLOROQUINE 200 MG TABLET PO SCH ×2 (08:35→17:09)
[2022-10-26] MEDS: METFORMIN 500 MG TABLET PO SCH ×2 (08:35→17:09)
[2022-10-26] MEDS: ASPIRIN 81 MG TAB.CHEW PO SCH (08:35)
[2022-10-26] MEDS: ATORVASTATIN 10 MG TABLET PO SCH (08:35)
[2022-10-26] MEDS: SILDENAFIL CITRATE 20 MG TABLET PO SCH ×2 (08:35→17:09)
[2022-10-26] MEDS: DILTIAZEM HCL CD 240 MG PO SCH (08:35)
[2022-10-26] MEDS: predniSONE 5 MG TABLET PO SCH (08:36)
[2022-10-26] MEDS: KETOROLAC EYE 0.5% 3 ML BOTTLE LEFTEYE SCH ×4 (08:38→20:47)
[2022-10-26 11:35] VITALS: BP 116/61
[2022-10-26] MEDS: DIGOXIN 0.25 MG TABLET PO SCH (12:10)
[2022-10-26 13:23] VITALS: BP 108/59
[2022-10-26 16:53] VITALS: BP 119/57
[2022-10-26] MEDS: LATANOPROST EYE DROP 0.005% 2.5 ML BOTTLE EACHEYE SCH (18:14)
--- NOTE | 2022-10-26 18:54 | NUR ---
RN CLOSING NOTE PATIENT IN BED AOX3 COSTA RICAN SPEAKING. ON RA, NO RESP DISTRESS NOTED. NO SOB. S/P R GROIN FEMORAL CATH, DRESSING INTACT. IV ACCESS R HAND 20G AND LFA 20G, FLUSHED WITH NS, PATENT AND INTACT. PATIENT COMPLAINED OF BLADDER DISTENTION, BLADDER SCAN SHOWED 4OML REMAINING URINE. PATIENT ABLE TO VOID FREELY BUT WITH MINIMAL AMOUNT PER PATIENT. NOTIFIED DR. SCHMITT WITH ORDER FOR URINE CULTURE. PATIENT TO TRANSFER TO [facility] FOR HIGHER LEVEL OF CARE BUT NO AVAILABLE BED PER NURSE TURNER OF [facility], UPDATES GIVEN TO NURSE TURNER OVER THE PHONE. PT IS AMBULATORY WITH BPR, SAFETY MEASURES IMPLEMENTED, BED LOCKED AND IN LOWEST POSITION, CALL LIGHT WITHIN REACH. ENDORSED TO NIGHT NIGHT FOR TERRI.
[2022-10-26 20:00] VITALS: BP 131/67
[2022-10-27] VITALS: BP 141/71
[2022-10-27 04:00] VITALS: BP 138/82
--- NOTE | 2022-10-27 06:32 | NUR ---
END OF SHIFT REPORT Patient in bed, Alert Oriented x4. Oxygen sat mid 90's in RA, intermittently on 2L NC at night, denies SOB. Afib controlled in night monitor HR 62. No episodes of chest pain during the night. IV LFA, Right wrist intact. Afebrile. Ambulated to the bathroom, had BM. Voided urine without difficulty. S/p CT Angio on 10/22/22, right femoral cath removed, right groin dressing clean and dry. Slept most of the night, no c/o pain. Plan for Transfer to [facility] for ASD repair. Called from [facility] Transfer/My at 0630 this morning. Per My, no bed available at this time. Will endorse to oncoming RN.
[2022-10-27 06:56] LABS: BASOPHILS % (AUTO) 0.5 % (0.0-2.0); EOSINOPHILS % (AUTO) 2.2 % (0.0-6.0); HEMATOCRIT 32 % (33-45); HEMOGLOBIN 10.4 g/dL (11.5-14.8); LYMPHOCYTES # (AUTO) 1.4 K/uL (0.8-4.8); MEAN CORPUSCULAR HGB CONC 33 g/dl (31.0-36.0); MEAN CORPUSCULAR VOLUME 83 fL (82-100); MONOCYTES # (AUTO) 0.5 K/uL (0.1-1.30); MONOCYTES % (AUTO) 9.1 % (2.0-12.0); NEUTROPHILS # (AUTO) 3.7 K/uL (1.8-8.9); NEUTROPHILS % (AUTO) 64.2 % (43.0-81.0); PLATELET COUNT (AUTO) 241 K/uL (150-450); RED BLOOD CELL COUNT(AUTO) 3.84 MIL/uL (4.0-5.2); WHITE BLOOD COUNT (AUTO) 5.8 K/uL (4.3-11.0)
[2022-10-27 07:05] LABS: CALCIUM, SERUM 8.2 mg/dL (8.5-10.1); CREATININE 0.5 mg/dL (0.6-1.3); POTASSIUM 3.6 mmol/L (3.5-5.1)
[2022-10-27] MEDS: PANTOPRAZOLE 40 MG TABLET.DR PO SCH (07:28)
--- NOTE | 2022-10-27 07:36 | NUR ---
RN OPENING NOTE- PATIENT AWAKE IN BED WATCHING TV , INTERACTIVE, THAI SPEAKING. ON RA, NO RESP DISTRESS NOTED. NO SOB. S/P R GROIN FEMORAL CATH, DRESSING INTACT/DRY / IV ACCESS R WRIST 20G AND LFA 20G, DR MORENO AT BEDSIDE FOR EVAL, CM NOTES REVIEWED ABOUT HLOC TRANSFER. PT IS AMBULATORY WITH BRP, SAFETY MEASURES IMPLEMENTED, BED LOCKED AND IN LOWEST POSITION, CALL LIGHT WITHIN REACH. WILL CONTINUE TO MONITOR.
[2022-10-27 08:00] VITALS: BP 124/78
[2022-10-27] MEDS: SILDENAFIL CITRATE 20 MG TABLET PO SCH ×2 (08:28→16:13)
[2022-10-27] MEDS: ASPIRIN 81 MG TAB.CHEW PO SCH (08:29)
[2022-10-27] MEDS: METFORMIN 500 MG TABLET PO SCH ×2 (08:29→16:12)
[2022-10-27] MEDS: HYDROXYCHLOROQUINE 200 MG TABLET PO SCH ×2 (08:29→16:13)
[2022-10-27] MEDS: DILTIAZEM HCL CD 240 MG PO SCH (08:29)
[2022-10-27] MEDS: ATORVASTATIN 10 MG TABLET PO SCH (08:29)
[2022-10-27] MEDS: predniSONE 5 MG TABLET PO SCH (08:31)
[2022-10-27] MEDS: KETOROLAC EYE 0.5% 3 ML BOTTLE LEFTEYE SCH ×6 (08:31→20:16)
[2022-10-27 12:00] VITALS: BP 109/64
[2022-10-27] MEDS: DIGOXIN 0.25 MG TABLET PO SCH (12:43)
[2022-10-27 16:00] VITALS: BP 122/50
[2022-10-27] MEDS: LATANOPROST EYE DROP 0.005% 2.5 ML BOTTLE EACHEYE SCH (17:37)
--- NOTE | 2022-10-27 18:24 | NUR ---
RN CLOSING NOTE- UNCHANGED, INTERACTIVE, SINGAPOREAN SPEAKING. ON RA, NO RESP DISTRESS NOTED. NO SOB. S/P R GROIN FEMORAL CATH, DRESSING INTACT/DRY / IV ACCESS R WRIST 20G AND LFA 20G, YUE FROM [facility] PHONED. AWAITING BED. [phone]. PT IS AMBULATORY WITH BRP, SAFETY MEASURES IMPLEMENTED, BED LOCKED AND IN LOWEST POSITION, CALL LIGHT WITHIN REACH. WILL CONTINUE TO MONITOR.
--- NOTE | 2022-10-27 19:30 | NUR ---
MACHINE BUILDER OPENING NOTES RECEIVED PT AWAKE IN BED. PATIENT IS A/O X4, BULGARIAN/GERMAN SPEAKING, ABLE TO MAKE NEEDS KNOWN. ON RA WITH NO S/S OF RESPIRATORY DISTRESS. ON TELE MONITORING SHOWING CONTROLLED A-FIB HR 77, NO S/S OF CARDIAC DISTRESS. IV ACCESS LFA #20 G AND R WRIST #20G S/L, INTACT AND PATENT. PATIENT CONTINENT, BRP, AMBULATORY. ALL SAFETY MEASURES IN PLACE: BED LOCKED AND IN LOWEST POSITION, HOB ELEVATED, CALL LIGHT WITHIN REACH, SIDE RAILS UPx3. WILL CONTINUE TO MONITOR CLOSELY.
[2022-10-27 20:00] VITALS: BP_SYST 98; BP_DIAS 50; BP_DIAS 58
[2022-10-28 01:31] VITALS: BP 116/63
[2022-10-28 05:00] VITALS: BP 119/61
--- NOTE | 2022-10-28 06:33 | NUR ---
CHROME TANNER CLOSING NOTES PT AWAKE IN BED. PATIENT IS A/O X4, KHMER/BELARUSIAN SPEAKING, ABLE TO MAKE NEEDS KNOWN. ON RA WITH NO S/S OF RESPIRATORY DISTRESS. ON TELE MONITORING SHOWING CONTROLLED AFIB , HR 66, NO S/S OF CARDIAC DISTRESS. IV ACCESS LFA #20 G AND R WRIST #20G S/L, INTACT AND PATENT. PATIENT CONTINENT, BRP, AMBULATORY. LISANDRO CALLED FROM [facility] AND GOT UPDATE FROM THE PATIENT.ALL SAFETY MEASURES IN PLACE: BED LOCKED AND IN LOWEST POSITION, HOB ELEVATED, CALL LIGHT WITHIN REACH, SIDE RAILS UPx3. WILL ENDORSE FOR TERRI.
[2022-10-28 06:53] LABS: BASOPHILS % (AUTO) 0.4 % (0.0-2.0); CALCIUM, SERUM 8.2 mg/dL (8.5-10.1); CREATININE 0.5 mg/dL (0.6-1.3); EOSINOPHILS % (AUTO) 1.8 % (0.0-6.0); HEMATOCRIT 32 % (33-45); HEMOGLOBIN 10.4 g/dL (11.5-14.8); LYMPHOCYTES # (AUTO) 1.2 K/uL (0.8-4.8); LYMPHOCYTES % (AUTO) 22.1 % (20.0-44.0); MAGNESIUM 1.7 mg/dL (1.8-2.4); MEAN CORPUSCULAR HGB CONC 33 g/dl (31.0-36.0); MEAN CORPUSCULAR VOLUME 83 fL (82-100); MONOCYTES # (AUTO) 0.5 K/uL (0.1-1.30); MONOCYTES % (AUTO) 9.3 % (2.0-12.0); NEUTROPHILS # (AUTO) 3.6 K/uL (1.8-8.9); NEUTROPHILS % (AUTO) 66.4 % (43.0-81.0); PHOSPHORUS 4.3 mg/dL (2.5-4.9); PLATELET COUNT (AUTO) 247 K/uL (150-450); POTASSIUM 3.6 mmol/L (3.5-5.1); RED BLOOD CELL COUNT(AUTO) 3.82 MIL/uL (4.0-5.2); WHITE BLOOD COUNT (AUTO) 5.4 K/uL (4.3-11.0)
[2022-10-28 08:00] VITALS: BP 131/83
[2022-10-28] MEDS: PANTOPRAZOLE 40 MG TABLET.DR PO SCH (08:10)
[2022-10-28] MEDS: KETOROLAC EYE 0.5% 3 ML BOTTLE LEFTEYE SCH ×4 (09:10→20:59)
[2022-10-28] MEDS: SILDENAFIL CITRATE 20 MG TABLET PO SCH ×2 (09:11→18:59)
[2022-10-28] MEDS: ATORVASTATIN 10 MG TABLET PO SCH (09:11)
[2022-10-28] MEDS: METFORMIN 500 MG TABLET PO SCH ×2 (09:11→18:59)
[2022-10-28] MEDS: predniSONE 5 MG TABLET PO SCH (09:11)
[2022-10-28] MEDS: HYDROXYCHLOROQUINE 200 MG TABLET PO SCH ×2 (09:11→19:19)
[2022-10-28] MEDS: DILTIAZEM HCL CD 240 MG PO SCH (09:11)
[2022-10-28] MEDS: ASPIRIN 81 MG TAB.CHEW PO SCH (09:12)
--- NOTE | 2022-10-28 09:21 | NUR ---
RN NOTE SPOKE TO SHAGGY FROM [facility] FOR PATIENT UPDATE. SHE STATED NO BEDS ARE AVAILABLE AT THIS TIME DUE TO MAXIMUM CAPACITY. SHE WILL CALL BACK IF ANYTHING OPENS TODAY, BUT MOST LIKELY TOMORROW.
[2022-10-28] MEDS ORDERED: MAGNESIUM OXIDE 400 MG TABLET PO ONE (10:00)
[2022-10-28] MEDS: DIGOXIN 0.25 MG TABLET PO SCH (13:05)
[2022-10-28 16:00] VITALS: BP 119/61
[2022-10-28] MEDS: LATANOPROST EYE DROP 0.005% 2.5 ML BOTTLE EACHEYE SCH (18:59)
--- NOTE | 2022-10-28 19:39 | NUR ---
TELE MS CLOSING NOTES PT AWAKE IN BED. PATIENT IS A/O X4, HEBREW/SYRIAC SPEAKING, ABLE TO MAKE NEEDS KNOWN. ON RA WITH NO S/S OF RESPIRATORY DISTRESS HR 72, NO S/S OF CARDIAC DISTRESS. IV ACCESS LFA #20 G AND R WRIST #20G S/L, INTACT AND PATENT. PATIENT CONTINENT, BRP, AMBULATORY. SHAGGY FROM [facility] WILL FOLLOW UP WITH AVAILABLE BEDS FOR DISCHARGE. ALL SAFETY MEASURES IN PLACE: BED LOCKED AND IN LOWEST POSITION, HOB ELEVATED, CALL LIGHT WITHIN REACH, SIDE RAILS UPx2. WILL ENDORSE FOR TERRI.
[2022-10-28 20:00] VITALS: BP 116/62
--- NOTE | 2022-10-28 20:10 | NUR ---
MS RN OPENING NOTE RECEIVED CHANGE SHIFT REPORT FROM DAY SHIFT NURSE. PATIENT IS SITTING IN HER BED, ALERT AND ORIENTED. AO X 4. SHE IS EQUATORIAL GUINEAN SPEAKING, UNDERSTAND SIMPLE TAJIK. PT IS ON 2 LPM OXYGEN VIA NC, TOLERATED WELL. NO S/S OF DISTRESS OR SOB. PT HAS TWO IV ACCESS: ONE IS AT HER R WRIST, #20G,SL; ANOTHER ONE IS AT HER L FA, #20G, SL. BOTH IV ACCESS ARE FLUSHED WELL, PATENT AND INTACT. PT DENIES OF HAVING PAIN AT THIS MOMENT. ACCORDING TO DAY SHIFT NURSE, PT IS PENDING FOR BEING TRANSFERRED TO HIGHER LEVEL OF CARE AT [place]. SAFETY MEASURES ARE IN PLACED: BED IN LOWEST AND LOCKED POSITION; HOB ELEVATED; SIDE RAILS UP X 2; CALL LIGHT AND TABLE ARE WITHIN REACH. WILL CONTINUE MONITORING THE PT AND PROVIDE THE CARE PT NEEDS.
[2022-10-29 04:00] VITALS: BP 117/58
--- NOTE | 2022-10-29 06:26 | NUR ---
MS RN CLOSING NOTE PATIENT IS SLEEPING IN HER BED, EASILY BEING AROUSED. HE IS ALERT AND ORIENTED; AO X 4. SHE IS SINGAPOREAN SPEAKING, UNDERSTAND SIMPLE URDU. PT IS ON 2 LPM OXYGEN VIA NC, TOLERATED WELL. NO S/S OF DISTRESS OR SOB. PT HAS TWO IV ACCESS: ONE IS AT HER R WRIST, #20G,SL; ANOTHER ONE IS AT HER L FA, #20G, SL. BOTH IV ACCESS ARE FLUSHED WELL, PATENT AND INTACT. PT DENIES OF HAVING PAIN AT THIS MOMENT. PT IS PENDING FOR BEING TRANSFERRED TO HIGHER LEVEL OF CARE AT [facility] ONCE THE BED IS AVAILABLE AT [facility]. SAFETY MEASURES ARE IN PLACED: BED IN LOWEST AND LOCKED POSITION; HOB ELEVATED; SIDE RAILS UP X 2; CALL LIGHT AND TABLE ARE WITHIN REACH. WILL ENDORSE NEXT SHIFT NURSE FOR CONTINUING PT CARE.
[2022-10-29 07:13] LABS: BASOPHILS % (AUTO) 0.5 % (0.0-2.0); EOSINOPHILS % (AUTO) 1.9 % (0.0-6.0); HEMATOCRIT 32 % (33-45); HEMOGLOBIN 10.3 g/dL (11.5-14.8); LYMPHOCYTES # (AUTO) 1.4 K/uL (0.8-4.8); LYMPHOCYTES % (AUTO) 25.1 % (20.0-44.0); MEAN CORPUSCULAR HGB CONC 33 g/dl (31.0-36.0); MEAN CORPUSCULAR VOLUME 83 fL (82-100); MONOCYTES # (AUTO) 0.5 K/uL (0.1-1.30); MONOCYTES % (AUTO) 8.8 % (2.0-12.0); NEUTROPHILS # (AUTO) 3.7 K/uL (1.8-8.9); NEUTROPHILS % (AUTO) 63.7 % (43.0-81.0); PLATELET COUNT (AUTO) 226 K/uL (150-450); RED BLOOD CELL COUNT(AUTO) 3.81 MIL/uL (4.0-5.2); WHITE BLOOD COUNT (AUTO) 5.7 K/uL (4.3-11.0)
[2022-10-29 07:25] LABS: CALCIUM, SERUM 8.4 mg/dL (8.5-10.1); CREATININE 0.5 mg/dL (0.6-1.3); MAGNESIUM 1.8 mg/dL (1.8-2.4); PHOSPHORUS 3.9 mg/dL (2.5-4.9); POTASSIUM 3.5 mmol/L (3.5-5.1)
[2022-10-29] MEDS: PANTOPRAZOLE 40 MG TABLET.DR PO SCH (07:39)
[2022-10-29] MEDS: ACETAMINOPHEN 325 MG TABLET PO PRN (08:11)
[2022-10-29] MEDS: ASPIRIN 81 MG TAB.CHEW PO SCH (08:19)
[2022-10-29] MEDS: HYDROXYCHLOROQUINE 200 MG TABLET PO SCH ×2 (08:19→18:04)
[2022-10-29] MEDS: SILDENAFIL CITRATE 20 MG TABLET PO SCH ×2 (08:19→18:04)
[2022-10-29] MEDS: ATORVASTATIN 10 MG TABLET PO SCH (08:19)
[2022-10-29] MEDS: METFORMIN 500 MG TABLET PO SCH ×2 (08:19→18:04)
[2022-10-29] MEDS: DILTIAZEM HCL CD 240 MG PO SCH (08:20)
[2022-10-29] MEDS: KETOROLAC EYE 0.5% 3 ML BOTTLE LEFTEYE SCH ×4 (08:21→21:18)
[2022-10-29] MEDS: predniSONE 5 MG TABLET PO SCH (08:22)
[2022-10-29] MEDS: DIGOXIN 0.25 MG TABLET PO SCH (14:08)
[2022-10-29] MEDS: LATANOPROST EYE DROP 0.005% 2.5 ML BOTTLE EACHEYE SCH (17:59)
--- NOTE | 2022-10-29 20:03 | NUR ---
RN OPENING NOTE, RECEIVED PT IN BED AAOX4 ABLE TO MAKE NEEDS KNOWN,ON 2L O2 VIA NC DAV WELL SAT 97.8%NO SOB/DISTRESS NOTED,NO COMPLAIN OF PAIN/DISCOMFORT AT THIS TIME,IV ACCESS R WRIST AND LFA 20G SL,PATENT AND INTACT,SAFETY MEASURE IN PLACE,CALL LIGHT WITHIN REACH,WILL CONTINUE TO MONITOR.
--- NOTE | 2022-10-30 06:22 | NUR ---
RN CLOSING NOTE, PT IN BED AAOX4 LAO SPEAKING WITH A LITTLE NAMIBIAN,ABLE TO MAKE NEEDS KNOWN,ON 2L O2 VIA NC DAV WELL SAT 99%,NO SOB/DISTRESS NOTED,NO COMPLAIN OF PAIN/DISCOMFORT DURING SHIFT,DUE MEDS GIVEN ORDER,IV ACCESS R WRIST AND LFA 20G SL,PATENT AND INTACT,SAFETY MEASURE IN PLACE,CALL LIGHT WITHIN REACH,WILL ENDORSED TO NEXT SHIFT.
[2022-10-30] MEDS: ATORVASTATIN 10 MG TABLET PO SCH (08:47)
[2022-10-30] MEDS: HYDROXYCHLOROQUINE 200 MG TABLET PO SCH ×2 (08:47→16:11)
[2022-10-30] MEDS: ASPIRIN 81 MG TAB.CHEW PO SCH (08:47)
[2022-10-30] MEDS: SILDENAFIL CITRATE 20 MG TABLET PO SCH ×2 (08:47→16:11)
[2022-10-30] MEDS: METFORMIN 500 MG TABLET PO SCH ×2 (08:47→16:11)
[2022-10-30] MEDS: KETOROLAC EYE 0.5% 3 ML BOTTLE LEFTEYE SCH ×4 (08:48→21:35)
[2022-10-30] MEDS: DILTIAZEM HCL CD 240 MG PO SCH (08:51)
[2022-10-30] MEDS: PANTOPRAZOLE 40 MG TABLET.DR PO SCH (08:51)
[2022-10-30] MEDS: predniSONE 5 MG TABLET PO SCH (08:51)
--- NOTE | 2022-10-30 08:52 | NUR ---
RN NOTE CARDIZEM WAS HOLD CAUSE BP 117/72
[2022-10-30] MEDS: DIGOXIN 0.25 MG TABLET PO SCH (12:00)
[2022-10-30] MEDS: LATANOPROST EYE DROP 0.005% 2.5 ML BOTTLE EACHEYE SCH (17:03)
--- NOTE | 2022-10-30 18:27 | NUR ---
RN CLOSING NOTE, PT IN BED AAOX4 TAMAZIGHT SPEAKING WITH A LITTLE TOGOLESE,ABLE TO MAKE NEEDS KNOWN,ON 2L O2 VIA NC DAV WELL SAT 99%,NO SOB/DISTRESS NOTED,NO COMPLAIN OF PAIN/DISCOMFORT DURING SHIFT,DUE MEDS GIVEN ORDER,IV ACCESS R WRIST AND LFA 20G SL,PATENT AND INTACT,SAFETY MEASURE IN PLACE,CALL LIGHT WITHIN REACH,WILL ENDORSED TO NEXT SHIFT.
--- NOTE | 2022-10-30 19:15 | NUR ---
RN NOTE RECEIVED PT FOR CONTINUITY OF CARE. PATIENT A/OX4; ITALIAN SPEAKING IN NO S/SX OF ACUTE DISTRESS AT THIS TIME; CURRENTLY ON ROOM AIR; WITH 02 SAT >95% AT THIS TIME. PT AMBULATORY. WITH IV ACCESS PATENT, INTACT AND FLUSHING WELL. WILL ENSURE SAFETY MEASURES WITHIN THE SHIFT. PATIENT BED ALARM IS ON. HEAD OF BED ELEVATED. BED IS LOCKED, IN LOWEST POSITION AND SIDE RAILS UP. CALL LIGHT WITHIN REACH OF THE PATIENT. WILL CONTINUE TO MONITOR AND REASSESS FOR ANY CHANGES AND WILL CARRY OUT ANY ONGOING AND ACTIVE MD ORDER. Addendum: 10/31/22 at 0631 by JOHANN DONNELLY RN CORRECTION PT IS ON 2L OF O2 VIA NC
[2022-10-30 20:00] VITALS: BP 134/69
[2022-10-31 04:00] VITALS: BP 101/67
--- NOTE | 2022-10-31 04:00 | NUR ---
RN NOTE PATIENT REMAINED TO BE IN NO SIGNS OF ACUTE RESPIRATORY DISTRESS, SAFE ENVIRONMENT MAINTAINED FOR PT. AM PATIENT CARE ASSISTANCE RENDERED. WILL CONTINUE TO MONITOR AND REASSESS FOR ANY CHANGES THROUGHOUT THE SHIFT.
--- NOTE | 2022-10-31 06:30 | NUR ---
RN NOTE PATIENT REMAINS IN ROOM IN NO SIGNS OF RESPIRATORY DISTRESS, PATIENT STILL ON 2L OF O2 VIA NC;TOLERATING WELL SATURATING @ >95% SP02. MED SURG STATUS. SAFETY MEASURES IMPLEMENTED, BED IN LOWEST POSITION, LOCKED, SIDE RAILS UP, CALL LIGHT WITHIN REACH. ALL NEEDS AND ORDERS ADDRESSED DURING THE SHIFT. IV ACCESS MAINTAINED INTACT, SECURED AND FLUSHING WELL. ALL DUE MEDS GIVEN ORDERED & SCHEDULED ; PATIENT TOLERATED WELL. PATIENT KEPT CLEAN AND COMFORTABLE WITHIN THE SHIFT. PATIENT ENDORSED TO INCOMING SHIFT RN WITH STABLE VITAL SIGN AND FOR CONTINUITY OF CARE.
--- NOTE | 2022-10-31 07:00 | NUR ---
RN OPENING NOTES : RECEIVED PATIENT IN NO SIGNS OF RESPIRATORY DISTRESS, PATIENT ON 2L OF O2 VIA NC;TOLERATING WELL SATURATING @ >95% SP02. SAFETY MEASURES IN PLACE, BED IN LOWEST POSITION, LOCKED, SIDE RAILS UP, CALL LIGHT WITHIN REACH.. IV ACCESS MAINTAINED INTACT, SECURED AND FLUSHING WELL. PATIENT TOLERATED WELL. WILL MONITOR.
[2022-10-31 08:00] VITALS: BP 115/69
[2022-10-31] MEDS: PANTOPRAZOLE 40 MG TABLET.DR PO SCH (08:16)
[2022-10-31] MEDS: SILDENAFIL CITRATE 20 MG TABLET PO SCH ×2 (09:15→17:33)
[2022-10-31] MEDS: DILTIAZEM HCL CD 240 MG PO SCH (09:15)
[2022-10-31] MEDS: ATORVASTATIN 10 MG TABLET PO SCH (09:15)
[2022-10-31] MEDS: ASPIRIN 81 MG TAB.CHEW PO SCH (09:15)
[2022-10-31] MEDS: predniSONE 5 MG TABLET PO SCH (09:15)
[2022-10-31] MEDS: HYDROXYCHLOROQUINE 200 MG TABLET PO SCH ×2 (09:16→17:33)
[2022-10-31] MEDS: KETOROLAC EYE 0.5% 3 ML BOTTLE LEFTEYE SCH ×4 (09:16→20:25)
[2022-10-31] MEDS: METFORMIN 500 MG TABLET PO SCH ×2 (09:16→17:33)
[2022-10-31] MEDS: DIGOXIN 0.25 MG TABLET PO SCH (13:06)
[2022-10-31 16:00] VITALS: BP 122/62
--- NOTE | 2022-10-31 18:30 | NUR ---
RN CLOSING NOTE, PT IN BED AAOX4 TURKISH SPEAKING WITH A LITTLE TOGOLESE,ABLE TO MAKE NEEDS KNOWN,ON 2L O2 VIA NC DAV WELL SAT 99%,NO SOB/DISTRESS NOTED,NO COMPLAIN OF PAIN/DISCOMFORT DURING SHIFT,DUE MEDS GIVEN ORDER,IV ACCESS R WRIST AND LFA 20G SL,PATENT AND INTACT,SAFETY MEASURE IN PLACE,CALL LIGHT WITHIN REACH,WILL ENDORSED TO NEXT SHIFT.
[2022-10-31] MEDS: LATANOPROST EYE DROP 0.005% 2.5 ML BOTTLE EACHEYE SCH (18:31)
--- NOTE | 2022-10-31 19:27 | NUR ---
MS RN OPENING NOTE RECEIVED PT SITTING IN CHAIR AT BEDSIDE. A/O X4, LATVIAN SPEAKING, AND ABLE TO MAKE NEEDS KNOWN. PT STABLE ON ROOM AIR. NO SOB OR S/S OF RESPIRATORY DISTRESS. BREATHING EVEN AND UNLABORED. IV ACCESS R WRIST 20G AND LFA SL, INTACT AND PATENT. SAFETY PRECAUTIONS IN PLACE. BED IN LOWEST LOCKED POSITION, HOB ELEVATED, SIDE RAILS UP X2, AND CALL LIGHT AND TABLE WITHIN REACH. ALL NEEDS MET AT THIS TIME.
[2022-10-31 20:00] VITALS: BP 114/68
--- NOTE | 2022-11-01 00:38 | NUR ---
RN NOTE RECEIVED CALL FROM ZEN OF THE [facility]. WANTED UPDATE ON PT STATUS AND WAS INFORMED THAT BED PLACEMENT IS STILL PENDING DUE TO BED AVAILABILITY. CHARGE NURSE HAWK SIMS.
--- NOTE | 2022-11-01 01:12 | NUR ---
RN NOTE PT NOTED WITH FINAL URINE CULTURE POSITIVE FOR GRAM NEGATIVE RODS. INFORMED NATIONAL BUSINESS DIRECTOR KE WITH NEW ORDERS NOTED AND CARRIED OUT. CHARGE NURSE HAWK SIMS.
[2022-11-01] MEDS ORDERED: CEFTRIAXONE 1 G VIAL ONE (01:32)
[2022-11-01] MEDS: CEFTRIAXONE 1 G in IV D5W 50 ML IV SCH ×2 (01:34→21:10)
[2022-11-01 05:00] VITALS: BP 114/67
--- NOTE | 2022-11-01 07:10 | NUR ---
UNIVERSITY ADMINISTRATOR OPENING NOTES Received pt awake in bed AOx4 mauritanian speaking. No complaints of pain or discomfort at this time. Pt is currently on RA and tolerating it well. IV access on right wrist 20 G and LFA 20 G patent and intact. HOB elevated to pts comfort. Siderails up at all times. Call light within reach. Will continue to monitor.
--- NOTE | 2022-11-01 07:10 | NUR ---
EMPLOYMENT CONSULTANT OPENING NOTES Received pt awake in bed AOx4 polish speaking. No complaints of pain or discomfort at this time. Pt is currently on RA and tolerating it well. IV access on right wrist 20 G and LFA 20 G patent and intact. HOB elevated to pts comfort. Siderails up at all times. Call light within reach. Will continue to monitor. Addendum: 11/01/22 at 0822 by TROY GEORGE LVN please disregard
[2022-11-01 08:00] VITALS: BP 120/71
[2022-11-01] MEDS: DILTIAZEM HCL CD 240 MG PO SCH (08:47)
[2022-11-01] MEDS: SILDENAFIL CITRATE 20 MG TABLET PO SCH ×2 (08:47→16:53)
[2022-11-01] MEDS: ASPIRIN 81 MG TAB.CHEW PO SCH (08:47)
[2022-11-01] MEDS: predniSONE 5 MG TABLET PO SCH (08:47)
[2022-11-01] MEDS: ATORVASTATIN 10 MG TABLET PO SCH (08:47)
[2022-11-01] MEDS: METFORMIN 500 MG TABLET PO SCH ×2 (08:47→16:52)
[2022-11-01] MEDS: HYDROXYCHLOROQUINE 200 MG TABLET PO SCH ×2 (08:47→16:52)
[2022-11-01] MEDS: PANTOPRAZOLE 40 MG TABLET.DR PO SCH (08:47)
[2022-11-01] MEDS: KETOROLAC EYE 0.5% 3 ML BOTTLE LEFTEYE SCH ×4 (08:48→21:09)
[2022-11-01 09:55] LABS: IRON, SERUM 38 ug/dl (50-175); TOTAL IRON BINDING CAPACITY 371 ug/dl (250-450)
[2022-11-01 10:05] LABS: FERRITIN 20 ng/mL (8-388)
[2022-11-01] MEDS: DIGOXIN 0.25 MG TABLET PO SCH (13:05)
[2022-11-01 16:00] VITALS: BP 109/53
[2022-11-01] MEDS: LATANOPROST EYE DROP 0.005% 2.5 ML BOTTLE EACHEYE SCH (17:00)
--- NOTE | 2022-11-01 18:36 | NUR ---
INPATIENT SERVICES DIRECTOR CLOSING NOTES All due medsand tx given as ordered. Pt tolerated everything well. All needs attended to. Call light within reach. Will endorse to oncoming nurse.
--- NOTE | 2022-11-01 19:53 | NUR ---
MS RN OPENING NOTE RECEIVED PT SITTING IN CHAIR AT BEDSIDE. A/O X4, FILIP[place] SPEAKING, AND ABLE TO MAKE NEEDS KNOWN. PT STABLE ON ROOM AIR. NO SOB OR S/S OF RESPIRATORY DISTRESS. BREATHING EVEN AND UNLABORED. IV ACCESS R WRIST 20G AND LFA SL, INTACT AND PATENT. SAFETY PRECAUTIONS IN PLACE. BED IN LOWEST LOCKED POSITION, HOB ELEVATED, SIDE RAILS UP X2, AND CALL LIGHT AND TABLE WITHIN REACH. ALL NEEDS MET AT THIS TIME.
--- NOTE | 2022-11-01 20:17 | NUR ---
RN NOTE REPORT GIVEN TO TEMO CORREIA. GOING TO ROOM 327-2.
[2022-11-01 20:30] VITALS: BP 128/83
--- NOTE | 2022-11-01 20:30 | NUR ---
RN NOTE PT TRANSFERRED VIA BED TO ROOM 327-2 AT THIS TIME.
--- NOTE | 2022-11-01 20:35 | NUR ---
RN opening notes Received Pt from MASOOD Garcia. Pt is alert and orientedX4. Pt speaks Albanian and able to make needs known. On room air. No SOB. No S/s of distress noted. IV site at R wrist # 20 is clean, intact and flushes well. IV site at LFA# 20 is clean, intact and SL. Pt is able to ambulates with a steady gait. Reorient the room and the use of call light. Pt verbalize understanding. Pt's belonging was checked by POLO Win. Safety precautions is maintained. Bed at low position, brakes locked, side rails upX2, hob elevated and call light is within reach. will continue to monitor.
[2022-11-01 21:00] VITALS: BP 128/83
--- NOTE | 2022-11-02 06:47 | NUR ---
RN closing notes Pt is resting in bed comfortably. Pt is alert and orientedX4. Pt speaks Tongan and able to make needs known. On room air. No SOB. No S/s of distress noted. Vs is stable. IV site at R wrist # 20 is clean, intact and flushes well. IV site at LFA# 20 is clean, intact and SL. Routine meds were given as ordered. Kept Pt clean, dry and comfortable. Safety precautions is maintained. Bed at low position, brakes locked, side rails upX2, hob elevated and call light is within reach. Will enodrse to am nurse for TERRI.
[2022-11-02 07:00] VITALS: BP 117/62
--- NOTE | 2022-11-02 07:30 | NUR ---
OPENING NOTE PATIENT RECEIVED AWAKE, A/OX4,ABLE TO MAKE ALL NEEDS KNOWN. ON ROOM AIR, BREATHING EVEN AND UNLABORED, NO S/S OF DISTRESSED OR SOB NOTED. NO S/SO OF PAIN OR COMPLAINTS OF PAIN. IV ACCESS R WRIST G#20 SL AND LFA G#20 SL, INTACT AND PATENT, FLUSHING WELL. AMBULATORY, BRP, SKIN INTACT, EDEMA PRESENT ON THE LEFT LOWER LEG. PATIENT HAS HYPOACTIVE BOWEL SOUNDS. SAFETY PRECAUTION IN PLACE: BED LOCKED AND AT THE LOWEST POSITION. SRX2, CALL LIGHT WITHIN REACH.
[2022-11-02 08:00] VITALS: BP 117/62
[2022-11-02] MEDS: DILTIAZEM HCL CD 240 MG PO SCH (08:40)
[2022-11-02] MEDS: ASPIRIN 81 MG TAB.CHEW PO SCH (08:41)
[2022-11-02] MEDS: ATORVASTATIN 10 MG TABLET PO SCH (08:41)
[2022-11-02] MEDS: METFORMIN 500 MG TABLET PO SCH ×2 (08:41→17:49)
[2022-11-02] MEDS: PANTOPRAZOLE 40 MG TABLET.DR PO SCH (08:41)
[2022-11-02] MEDS: predniSONE 5 MG TABLET PO SCH (09:25)
[2022-11-02] MEDS: HYDROXYCHLOROQUINE 200 MG TABLET PO SCH ×2 (10:32→17:49)
[2022-11-02] MEDS: SILDENAFIL CITRATE 20 MG TABLET PO SCH ×2 (10:32→17:49)
[2022-11-02] MEDS: KETOROLAC EYE 0.5% 3 ML BOTTLE LEFTEYE SCH ×4 (10:33→21:12)
[2022-11-02] MEDS: DIGOXIN 0.25 MG TABLET PO SCH (13:52)
[2022-11-02 16:00] VITALS: BP 125/67
[2022-11-02] MEDS: LATANOPROST EYE DROP 0.005% 2.5 ML BOTTLE EACHEYE SCH (17:50)
--- NOTE | 2022-11-02 18:54 | NUR ---
CLOSING NOTE PATIENT IS RESTING IN BED, A/OX4,ABLE TO MAKE ALL NEEDS KNOWN. ON ROOM AIR, BREATHING EVEN AND UNLABORED, NO S/S OF DISTRESSED OR SOB NOTED. NO S/SO OF PAIN OR COMPLAINTS OF PAIN. IV ACCESS R WRIST G#20 SL AND LFA G#20 SL, INTACT AND PATENT, FLUSHING WELL. EDEMA REMAINS PRESENT ON THE LEFT LOWER LEG. SCHEDULED MEDICATIONS ADMINISTERED. PATIENT WAS INFORMED THAT THERE ISN'T ANY UPDATES ON TRANSFER. SAFETY PRECAUTION MAINTAINED: BED LOCKED AND AT THE LOWEST POSITION. SRX2, CALL LIGHT WITHIN REACH.
--- NOTE | 2022-11-02 19:50 | NUR ---
MS RN OPENING NOTE RECEIVED PATIENT IN BED; AWAKE, ALERT AND ORIENTED X 4. ON ROOM AIR; TOLERATING WELL. BREATHING EVEN AND NONLABORED. NO S/S OF RESPIRATORY OR CARDIAC DISTRESS. DENIES ANY PAIN OR DISCOMFORT. WITH IV ACCESS ON RIGHT WRIST 20g AND LEFT FA 20g: BOTH PATENT, INTACT AND SALINE LOCKED. ABLE TO MAKE NEEDS KNOWN. SAFETY MEASURES IMPLEMENTED: CALL LIGHT AND TABLE WITHIN REACH, SIDE RAILS UP X 2, BED IN LOWEST LOCKED POSITION. WILL CONTINUE TO MONITOR THROUGHOUT SHIFT.
[2022-11-02] MEDS: CEFTRIAXONE 1 G in IV D5W 50 ML IV SCH (21:14)
--- NOTE | 2022-11-03 06:40 | NUR ---
MS RN CLOSING NOTE PATIENT IN BED; AWAKE, A/O X 4. STABLE ON ROOM AIR. IN NO ACUTE DISTRESS. NO C/O ANY PAIN OR DISCOMFORT. WITH IV ACCESS ON RIGHT WRIST 20g AND LEFT FA 20g: BOTH PATENT, INTACT AND SALINE LOCKED. ALL NEEDS ATTENDED. SAFETY MEASURES MAINTAINED: CALL LIGHT AND TABLE WITHIN REACH, SIDE RAILS UP X 2, BED IN LOWEST LOCKED POSITION. ENDORSED TO MORNING SHIFT FOR CONTINUITY OF CARE.
--- NOTE | 2022-11-03 07:40 | NUR ---
OPENING NOTE PATIENT RECEIVED AWAKE, A/Ox4.ON ROOM AIR, BREATHING EVENLY AND UNLABORED, NO DISTRESS NOTED OR SOB. IV ACCESS ON LFA 20G, INTACT AND PATENT, FLUSHING WELL. PATIENT HAS CLEAR LUNG SOUNDS AND HYPOACTIVE BOWEL SOUNDS, NO PAIN IN THE ABDOMEN WHEN PALPITATED. FALL AND SAFETY MEASURES IN PLACE: BED ALARM ON, BED LOCKED AND AT THE LOWEST POSITION, SRx2, CALL LIGHT WITHIN REACH.
[2022-11-03 08:00] VITALS: BP 131/76
[2022-11-03] MEDS: ASPIRIN 81 MG TAB.CHEW PO SCH (08:29)
[2022-11-03] MEDS: SILDENAFIL CITRATE 20 MG TABLET PO SCH (08:29)
[2022-11-03] MEDS: DILTIAZEM HCL CD 240 MG PO SCH (08:30)
[2022-11-03] MEDS: METFORMIN 500 MG TABLET PO SCH (08:30)
[2022-11-03] MEDS: PANTOPRAZOLE 40 MG TABLET.DR PO SCH (08:31)
[2022-11-03] MEDS: ATORVASTATIN 10 MG TABLET PO SCH (08:31)
[2022-11-03] MEDS: predniSONE 5 MG TABLET PO SCH (08:31)
[2022-11-03] MEDS: HYDROXYCHLOROQUINE 200 MG TABLET PO SCH (08:31)
[2022-11-03] MEDS: KETOROLAC EYE 0.5% 3 ML BOTTLE LEFTEYE SCH ×2 (08:33→12:57)
[2022-11-03 10:07] VITALS: BP 139/74
[2022-11-03] MEDS: DIGOXIN 0.25 MG TABLET PO SCH (12:57)
[2022-11-03 16:00] VITALS: BP 127/84
--- NOTE | 2022-11-03 16:30 | NUR ---
TRANSFER/ DISCHARGE NOTE PATIENT DISCHARGED IN A MEDICALLY STABLE CONDITION. A/Ox4 ON ROOM AIR O2 @95%. V/S TAKEN, STABLE AND RECORDED. IV ACCESS ON THE LFA 20G INTACT AND PATENT, FLUSHING WELL; KEPT IN PLACE FOR TRANSFER TO [facility]. NAME BAND WAS REMOVED. ALL BELONGINGS WERE ACCOUNTED FOR AND BELONGING SHEET WAS SIGNED AND PLACED IN CHART.HOME MEDICATION WERE RETURNED. HEALTH INSTRUCTIONS AND TEACHINGS WERE GIVEN AND UNDERSTANDING WAS VERBALIZED. REPORT WAS GIVEN TO RNDU AT [facility]. PATIENT LEFT VIA GURNEY ACCOMPANIED BY TWO ADMITTING OFFICE ESCORT. CHARGE NURSE AWARE OF DISCHARGE.
== END 2022-11-03 16:58 | disposition short-term general hospital (02) | DRG 192 ==
LOC: ER 17:20 → TELE 22:18 → ICU 10-22 11:30 → TELE1 10-23 17:40 → MEDSG1 10-28 08:04 → MED 11-01 20:25
PROVIDERS: ADMIT Nurse Practitioner Acute Care; ATTEND Nurse Practitioner Acute Care
PROC: B24BZZ4 Ultrasonography of Heart with Aorta, Transesophageal (ICD-10-PCS; 2022-10-18)
PROC: 4A023N8 Measurement of Cardiac Sampling and Pressure, Bilateral, Percutaneous Approach (ICD-10-PCS; principal; 2022-10-22)
PROC: B211YZZ Fluoroscopy of Multiple Coronary Arteries using Other Contrast (ICD-10-PCS; 2022-10-22)
DX: Q21.11 Secundum atrial septal defect (principal); I21.A1 Myocardial infarction type 2; E43 Unspecified severe protein-calorie malnutrition; I27.20 Pulmonary hypertension, unspecified; E88.09 Other disorders of plasma-protein metabolism, not elsewhere classified; E88.81 Metabolic syndrome and other insulin resistance; I50.32 Chronic diastolic (congestive) heart failure; I50.810 Right heart failure, unspecified; I48.20 Chronic atrial fibrillation, unspecified; I48.0 Paroxysmal atrial fibrillation; I11.0 Hypertensive heart disease with heart failure; M06.9 Rheumatoid arthritis, unspecified; E87.6 Hypokalemia; R73.03 Prediabetes; E66.01 Morbid (severe) obesity due to excess calories; Z68.39 Body mass index [BMI] 39.0-39.9, adult; D64.9 Anemia, unspecified; G47.33 Obstructive sleep apnea (adult) (pediatric); I07.1 Rheumatic tricuspid insufficiency; J45.909 Unspecified asthma, uncomplicated; Z79.01 Long term (current) use of anticoagulants; Z86.16 Personal history of COVID-19; Z90.49 Acquired absence of other specified parts of digestive tract; J98.11 Atelectasis; R77.8 Other specified abnormalities of plasma proteins; Z79.899 Other long term (current) drug therapy; Z20.822 Contact with and (suspected) exposure to COVID-19
CPT/HCPCS: 36415; 71045-TC; 71250-TC; 75574; 80048-TC; 80053-TC; 80061-TC; 80076-TC; 80162-TC; 82728-TC; 83540-TC; 83690-TC; 83735-TC; 83880; 84100-TC; 84484-TC; 85025-TC; 85610-TC; 85730-TC; 87081-TC; 87086-TC; 93308-TC; 93312-TC; A4223; C1751; C1887; C1894; C9803; G0378; G0500; J0696; J1644; J1650; J1940; J2250; J2704; J2765; J3010; J3480; J3490; J7030; J7040; J7050; J7060; J7512; Q9967

== ENCOUNTER 2023-08-10 16:16 | Inpatient (IN) | payer MEDICAID ==
[~2023-08-10] VITALS: Ht 160 cm; Wt 87.5 kg
[2023-08-10] VITALS: BP 154/61; TEMP 98.1; O2SAT 98
[~2023-08-10 16:16] MED LIST changes: +BRIM5DRO5 EACHEYE; +DICL100G26 TP; -KETO5DRO39 LEFTEYE; -PRED5TAB48 PO
[2023-08-10] MEDS ORDERED: ONDANSETRON HCL/PF 4 MG/2 ML VIAL ONE (17:01)
[2023-08-10] MEDS: ONDANSETRON HCL 4 MG/5 ML SOLUTION PO ONE (17:04)
[2023-08-10 17:05] LABS: BASOPHILS % (AUTO) 0.4 % (0.0-2.0); EOSINOPHILS % (AUTO) 0.7 % (0.0-6.0); HEMATOCRIT 35 % (33-45); HEMOGLOBIN 11.9 g/dL (11.5-14.8); LYMPHOCYTES # (AUTO) 0.9 K/uL (0.8-4.8); LYMPHOCYTES % (AUTO) 15.7 % (20.0-44.0); MEAN CORPUSCULAR HEMOGLOBIN 31 PG (26.0-33.0); MEAN CORPUSCULAR HGB CONC 34 g/dl (31.0-36.0); MEAN CORPUSCULAR VOLUME 90 fL (82-100); MONOCYTES # (AUTO) 0.4 K/uL (0.1-1.30); MONOCYTES % (AUTO) 6.5 % (2.0-12.0); NEUTROPHILS # (AUTO) 4.6 K/uL (1.8-8.9); NEUTROPHILS % (AUTO) 76.7 % (43.0-81.0); PLATELET COUNT (AUTO) 184 K/uL (150-450); RED BLOOD CELL COUNT(AUTO) 3.88 MIL/uL (4.0-5.2); RED CELL DISTRIBUTION WIDTH 13.5 % (11.5-15.0)
[2023-08-10] MEDS ORDERED: METO25TA4 PO (17:07)
[2023-08-10] MEDS ORDERED: AMIO200T5 PO (17:07)
[2023-08-10 17:18] LABS: CALCIUM, SERUM 8.9 mg/dL (8.5-10.1); CARBON DIOXIDE 30 mmol/L (21-32); CHLORIDE 105 mmol/L (98-107); CREATININE 0.7 mg/dL (0.6-1.3); GLUCOSE 113 mg/dL (74-106); INR 1.13 (0.91-1.10); PARTIAL THROMBOPLASTIN TIME 32.4 SEC (24.3-34.3); POTASSIUM 3.4 mmol/L (3.5-5.1); PROTHROMBIN TIME 11.9 SECS (9.2-11.1); SODIUM SERUM 140 mmol/L (136-145); UREA NITROGEN, BLOOD 9 mg/dL (7-18)
[2023-08-10 17:31] LABS: ALANINE AMINOTRANSFERASE 23 U/L (12-78); ALBUMIN 3.5 g/dL (3.4-5.0); ALKALINE PHOSPHATASE 145 U/L (46-116); ASPARTATE AMINOTRANSFERASE 20 U/L (15-37); BILIRUBIN,DIRECT 0.2 mg/dL (0.0-0.2); BILIRUBIN,TOTAL 0.6 mg/dL (0.2-1.0); NT-PRO BNP 1660 pg/mL (0-125); TOTAL PROTEIN, SERUM 7.5 g/dL (6.4-8.2)
[2023-08-10 19:51] VITALS: O2SAT 97
[2023-08-10 21:00] VITALS: BP 163/76; TEMP 97.9; O2SAT 97
[2023-08-10] MEDS ORDERED: MAG HYDROX/AL HYDROX/SIMETH 30 ML UDC PO PRN (23:00)
[2023-08-10] MEDS ORDERED: MAGNESIUM HYDROXIDE 30 ML UDC PO PRN (23:00)
[2023-08-10] MEDS ORDERED: ONDANSETRON HCL/PF 4 MG/2 ML VIAL IVP PRN (23:00)
[2023-08-10] MEDS ORDERED: Z GUARD REMEDY 4 OZ OINT TP PRN (23:00)
[2023-08-10] MEDS ORDERED: ZOLPIDEM TARTRATE 5 MG TABLET PO PRN (23:00)
[2023-08-11] VITALS: BP 156/61; TEMP 98.1; O2SAT 98
[2023-08-11] MEDS: ACETAMINOPHEN 325 MG TABLET PO PRN (01:03)
[2023-08-11 04:00] VITALS: BP 138/55; TEMP 97.9; O2SAT 97
[2023-08-11 07:05] LABS: BASOPHILS % (AUTO) 0.6 % (0.0-2.0); EOSINOPHILS # (AUTO) 0.1 K/uL (0.0-0.7); EOSINOPHILS % (AUTO) 2.5 % (0.0-6.0); HEMATOCRIT 33 % (33-45); HEMOGLOBIN 11.5 g/dL (11.5-14.8); LYMPHOCYTES # (AUTO) 1.6 K/uL (0.8-4.8); LYMPHOCYTES % (AUTO) 30.6 % (20.0-44.0); MEAN CORPUSCULAR HEMOGLOBIN 32 PG (26.0-33.0); MEAN CORPUSCULAR HGB CONC 35 g/dl (31.0-36.0); MEAN CORPUSCULAR VOLUME 91 fL (82-100); MONOCYTES # (AUTO) 0.5 K/uL (0.1-1.30); NEUTROPHILS % (AUTO) 56.3 % (43.0-81.0); PLATELET COUNT (AUTO) 162 K/uL (150-450); RED BLOOD CELL COUNT(AUTO) 3.66 MIL/uL (4.0-5.2); RED CELL DISTRIBUTION WIDTH 13.6 % (11.5-15.0); WHITE BLOOD COUNT (AUTO) 5.4 K/uL (4.3-11.0)
[2023-08-11 07:44] LABS: CALCIUM, SERUM 8.7 mg/dL (8.5-10.1); CREATININE 0.6 mg/dL (0.6-1.3); MAGNESIUM 1.9 mg/dL (1.8-2.4); PHOSPHORUS 4.5 mg/dL (2.5-4.9); POTASSIUM 3.2 mmol/L (3.5-5.1)
[2023-08-11] MEDS: PANTOPRAZOLE 40 MG TABLET.DR PO SCH (07:57)
[2023-08-11 08:09] LABS: THYROID STIMULATING HORMONE 3.146 uIU/mL (0.358-3.74)
[2023-08-11] MEDS ORDERED: DICLOFENAC TOPICAL 100 GM TUBE TP SCH ×2 (09:00)
[2023-08-11] MEDS: FUROSEMIDE 20 MG/2 ML VIAL IV SCH (09:49)
[2023-08-11] MEDS: HYDROXYCHLOROQUINE 200 MG TABLET PO SCH (09:49)
[2023-08-11] MEDS: POTASSIUM CHLORIDE 20 MEQ TAB.PRT.SR PO SCH (09:49)
[2023-08-11] MEDS: METOPROLOL SUCCINATE 25 MG TAB.SR.24H PO SCH (09:50)
[2023-08-11] MEDS: AMIODARONE HCL 200 MG TABLET PO SCH (09:50)
[2023-08-11] MEDS: RIVAROXABAN 10 MG TABLET PO SCH (09:51)
[2023-08-11 10:11] VITALS: BP 112/47; TEMP 97.9; O2SAT 100
[2023-08-11] MEDS ORDERED: CT SWABBABLE VALVE TRANS SET 1 EA INFUS.SET MC ONE (10:54)
[2023-08-11] MEDS ORDERED: IV NS 0.9% 250 ML IV ONE (10:54)
[2023-08-11] MEDS ORDERED: IOHEXOL-350 100 ML VIAL IV ONE (10:54)
[2023-08-11] MEDS: FUROSEMIDE 20 MG TABLET PO SCH (11:42)
[2023-08-11] MEDS ORDERED: PRED5TAB48 PO (15:12)
[2023-08-11] MEDS: predniSONE 5 MG TABLET PO SCH (17:01)
[2023-08-11 20:00] VITALS: BP 132/76; TEMP 98.4; O2SAT 96
[2023-08-12] VITALS: BP 141/76; TEMP 97.8; O2SAT 98
[2023-08-12 04:00] VITALS: BP 142/71; TEMP 97.8; O2SAT 97
[2023-08-12 06:56] LABS: CALCIUM, SERUM 7.9 mg/dL (8.5-10.1); MAGNESIUM 1.6 mg/dL (1.8-2.4); POTASSIUM 4.8 mmol/L (3.5-5.1)
[2023-08-12 08:35] VITALS: BP_SYST 143; BP_SYST 150; BP_DIAS 83; BP_DIAS 90; TEMP 98; TEMP 98.1; O2SAT 96
[2023-08-12 09:11] VITALS: BP 143/83
[2023-08-12] MEDS: MAGNESIUM OXIDE 400 MG TABLET PO ONE (10:54)
== END 2023-08-12 14:45 | disposition home or self-care (01) | DRG 190 ==
LOC: ER 16:33 → TELE 20:21 → MED 08-12 11:32
PROVIDERS: ADMIT Student in an Organized Health Care Education/Training Program; ATTEND Nurse Practitioner Acute Care
DX: I21.4 Non-ST elevation (NSTEMI) myocardial infarction (principal); D68.59 Other primary thrombophilia; I27.20 Pulmonary hypertension, unspecified; I42.9 Cardiomyopathy, unspecified; I11.0 Hypertensive heart disease with heart failure; I50.32 Chronic diastolic (congestive) heart failure; E11.9 Type 2 diabetes mellitus without complications; E66.01 Morbid (severe) obesity due to excess calories; D64.9 Anemia, unspecified; I25.10 Atherosclerotic heart disease of native coronary artery without angina pectoris; E87.6 Hypokalemia; G47.33 Obstructive sleep apnea (adult) (pediatric); I48.0 Paroxysmal atrial fibrillation; Z90.49 Acquired absence of other specified parts of digestive tract; M06.9 Rheumatoid arthritis, unspecified; Z79.01 Long term (current) use of anticoagulants; Z95.4 Presence of other heart-valve replacement; Z68.34 Body mass index [BMI] 34.0-34.9, adult
CPT/HCPCS: 36415; 71045-TC; 80048-TC; 80061-TC; 80076-TC; 83735-TC; 83880; 84100-TC; 84439-TC; 84443-TC; 84484-TC; 85025-TC; 85378-TC; 85730-TC; 93307-TC; 93970-TC; G0378; J1940; J2405; J7050; J7512; Q9967

== ENCOUNTER 2024-08-04 13:43 | Inpatient (IN) | payer MEDICAID ==
[~2024-08-04] VITALS: Ht 162.6 cm; Wt 103.9 kg
[2024-08-04] VITALS (11 sets, daily range): BP systolic 85–124; BP diastolic 28–97; TEMP 97.4; O2SAT 94–99
[~2024-08-04 13:43] MED LIST changes: +AMIO200T5 PO; -BRIM5DRO5 EACHEYE; -CYCL5TAB PO; -DIGO250T PO; -DILT240C88 PO; -FLUT16SP; -LATA2.5D15 EACHEYE; -LORA10TA7 PO; -METF-440 PO; +METO25TA4 PO; -OMEP40CA21 PO; -PRED5TAB PO; +PRED5TAB48 PO; -SILD20TA2 PO
[2024-08-04 14:32] LABS: BASOPHILS % (AUTO) 0.4 % (0.0-2.0); EOSINOPHILS % (AUTO) 0.6 % (0.0-6.0); HEMATOCRIT 36 % (33-45); HEMOGLOBIN 12.5 g/dL (11.5-14.8); LYMPHOCYTES # (AUTO) 1.3 K/uL (0.8-4.8); LYMPHOCYTES % (AUTO) 18.5 % (20.0-44.0); MEAN CORPUSCULAR HEMOGLOBIN 31 PG (26.0-33.0); MEAN CORPUSCULAR HGB CONC 34 g/dl (31.0-36.0); MEAN CORPUSCULAR VOLUME 90 fL (82-100); MONOCYTES # (AUTO) 0.6 K/uL (0.1-1.30); MONOCYTES % (AUTO) 7.8 % (2.0-12.0); NEUTROPHILS # (AUTO) 5.3 K/uL (1.8-8.9); NEUTROPHILS % (AUTO) 72.7 % (43.0-81.0); PLATELET COUNT (AUTO) 211 K/uL (150-450); RED BLOOD CELL COUNT(AUTO) 4.05 MIL/uL (4.0-5.2); RED CELL DISTRIBUTION WIDTH 13.9 % (11.5-15.0); WHITE BLOOD COUNT (AUTO) 7.2 K/uL (4.3-11.0)
[2024-08-04 14:33] LABS: APPEARANCE,URINE CLEAR (CLEAR); BILIRUBIN,URINE NEGATIVE (NEGATIVE); BLOOD, URINE TRACE-INTA Ery/uL (NEGATIVE); COLOR,URINE YELLOW (YELLOW); KETONES,URINE NEGATIVE (NEGATIVE); LEUKOCYTE ESTERASE ,URINE NEGATIVE (NEGATIVE); NITRITE, URINE NEGATIVE (NEGATIVE); PROTEIN,URINE NEGATIVE (NEGATIVE); UGLUCOSE NEGATIVE (NEGATIVE); UROBILINOGEN,URINE 0.2 EU/dL (0.2)
[2024-08-04 14:57] LABS: ALANINE AMINOTRANSFERASE 45 U/L (12-78); ALBUMIN 3.7 g/dL (3.4-5.0); ALKALINE PHOSPHATASE 145 U/L (46-116); ASPARTATE AMINOTRANSFERASE 28 U/L (15-37); BILIRUBIN,DIRECT 0.2 mg/dL (0.0-0.2); BILIRUBIN,TOTAL 0.5 mg/dL (0.2-1.0); CALCIUM, SERUM 8.4 mg/dL (8.5-10.1); CARBON DIOXIDE 28 mmol/L (21-32); CHLORIDE 106 mmol/L (98-107); CREATININE 0.9 mg/dL (0.6-1.3); GLUCOSE 101 mg/dL (74-106); POTASSIUM 2.9 mmol/L (3.5-5.1); SODIUM SERUM 144 mmol/L (136-145); TOTAL PROTEIN, SERUM 7.7 g/dL (6.4-8.2); UREA NITROGEN, BLOOD 15 mg/dL (7-18)
[2024-08-04 15:04] LABS: THYROID STIMULATING HORMONE 3.78 uIU/mL (0.358-3.74)
[2024-08-04] MEDS: ASPIRIN 325 MG TABLET PO ONE (15:56)
[2024-08-04] MEDS: POTASSIUM CHLORIDE 20 MEQ TAB.PRT.SR PO ONE (15:56)
[2024-08-04 15:59] LABS: ADD URINE CULTURE NO; BACTERIA,URINE None seen /HPF (None Seen); SQUAMOUS EPITHELIAL CELL,UR 0-2 /HPF (None Seen); WBC,URINE 0-2 /HPF (0-3)
[2024-08-04] MEDS ORDERED: FURO-144 PO (16:15)
[2024-08-04] MEDS ORDERED: LATA2.5D15 EACHEYE (16:15)
[2024-08-04] MEDS ORDERED: METF-440 PO (16:15)
[2024-08-04] MEDS ORDERED: CYCL5TAB PO (16:15)
[2024-08-04] MEDS ORDERED: METO-357 PO (16:15)
[2024-08-04] MEDS ORDERED: LEVO50TA PO (16:15)
[2024-08-04] MEDS ORDERED: BRIM5DRO3 LEFTEYE (16:15)
[2024-08-04] MEDS ORDERED: PANT40TA49 PO (16:15)
[2024-08-04] MEDS: NOREPINEPHRINE 8 MG in IV D5W 242 ML IV PRN ×2 (17:00→21:57)
[2024-08-04] MEDS ORDERED: NOREPINEPHRINE 8MG/250ML RTU 250 ML IV ONE ×2 (17:03→21:02)
[2024-08-04] MEDS ORDERED: PROPOFOL 100 ML ONE (17:16)
[2024-08-04 17:56] LABS: BASOPHILS % (AUTO) 0.2 % (0.0-2.0); EOSINOPHILS % (AUTO) 0.2 % (0.0-6.0); HEMATOCRIT 41 % (33-45); LYMPHOCYTES % (AUTO) 25.7 % (20.0-44.0); MEAN CORPUSCULAR HEMOGLOBIN 30 PG (26.0-33.0); MEAN CORPUSCULAR HGB CONC 32 g/dl (31.0-36.0); MEAN CORPUSCULAR VOLUME 95 fL (82-100); MONOCYTES # (AUTO) 0.5 K/uL (0.1-1.30); MONOCYTES % (AUTO) 2.7 % (2.0-12.0); NEUTROPHILS % (AUTO) 71.2 % (43.0-81.0); PLATELET COUNT (AUTO) 209 K/uL (150-450); RED BLOOD CELL COUNT(AUTO) 4.27 MIL/uL (4.0-5.2); RED CELL DISTRIBUTION WIDTH 13.8 % (11.5-15.0); WHITE BLOOD COUNT (AUTO) 19.6 K/uL (4.3-11.0)
[2024-08-04] MEDS ORDERED: ONDANSETRON HCL/PF 4 MG/2 ML VIAL IVP PRN (18:00)
[2024-08-04] MEDS ORDERED: IV NS 0.9% 1,000 ML IV PRN (18:00)
[2024-08-04] MEDS ORDERED: ACETAMINOPHEN 325 MG TABLET PO PRN (18:00)
[2024-08-04 18:02] LABS: ABG BASE EXCESS -12.3 mmol/L (-2.0-3.0); ABG OXYGEN SATURATION 98.9 % (94.0-98.0); ABG PCO2 25.3 mmHg (32.0-45.0); ABG PH 7.304 (7.350-7.450); ABG PO2 219.4 mmHg (83.0-108.0); ABG TOTAL HEMOGLOBIN 13.3 G/dL (12.0-16.0); COHb 0.3 % (0.5-1.5); MetHb 0.3 % (0.0-1.5); O2Hb 98.3 % (94.0-97.0); PEEP,BG 10 cm H2O; SITE, ABG RIGHT RADIAL; VT, ABG 550 mL
[2024-08-04 18:13] LABS: INR 1.18 (0.91-1.10); PARTIAL THROMBOPLASTIN TIME 28.5 SEC (24.3-34.3); PROTHROMBIN TIME 12.4 SECS (9.2-11.1)
[2024-08-04] MEDS: Magnesium 1GM/D5W 100ML PREMIX 100 ML IV SCH (18:30)
[2024-08-04 18:42] LABS: ALBUMIN 3.3 g/dL (3.4-5.0); BILIRUBIN,TOTAL 0.4 mg/dL (0.2-1.0); CALCIUM, SERUM 8.9 mg/dL (8.5-10.1); CREATININE 1.1 mg/dL (0.6-1.3); MAGNESIUM 2.5 mg/dL (1.8-2.4); TOTAL PROTEIN, SERUM 7.1 g/dL (6.4-8.2)
[2024-08-04 19:00] LABS: POTASSIUM 3.3 mmol/L (3.5-5.1)
[2024-08-04] MEDS: Sodium Bicarbonate 100 MEQ in IV 1/2NS 1000 ML 1,000 ML IV PRN (21:39)
[2024-08-04] MEDS: SODIUM BICARBONATE SYR 50 MEQ/50 ML DISP.SYRIN ONE (21:58)
[2024-08-04] MEDS: PROPOFOL 100 ML IV PRN (22:23)
[2024-08-05] VITALS (99 sets, daily range): BP systolic 85–163; BP diastolic 34–98; TEMP 97.4–102.6; O2SAT 79–98
[2024-08-05 00:15] LABS: ABG BASE EXCESS -10.8 mmol/L (-2.0-3.0); ABG OXYGEN SATURATION 98.5 % (94.0-98.0); ABG PCO2 23.7 mmHg (32.0-45.0); ABG PO2 160.6 mmHg (83.0-108.0); ABG TOTAL HEMOGLOBIN 13.8 G/dL (12.0-16.0); COHb 0.3 % (0.5-1.5); MetHb 0.1 % (0.0-1.5); O2Hb 98.1 % (94.0-97.0); SITE, ABG RIGHT RADIAL; VT, ABG 500 mL
[2024-08-05] MEDS: PIPERACILLIN /TAZOBACTAM 4.5 G in IV D5W 50 ML IV SCH (00:22)
[2024-08-05] MEDS: PIPERCILLIN/TAZOBACTAM 2.25GM/D5W 50MLPB IV ONE (00:26)
[2024-08-05] MEDS: NOREPINEPHRINE 8MG/250ML RTU 250 ML IV ONE ×2 (00:26→03:16)
[2024-08-05 04:21] LABS: BASOPHILS % (AUTO) 0.1 % (0.0-2.0); EOSINOPHILS % (AUTO) 0.1 % (0.0-6.0); HEMATOCRIT 39 % (33-45); HEMOGLOBIN 12.7 g/dL (11.5-14.8); LYMPHOCYTES # (AUTO) 1.1 K/uL (0.8-4.8); LYMPHOCYTES % (AUTO) 4.9 % (20.0-44.0); MEAN CORPUSCULAR HEMOGLOBIN 31 PG (26.0-33.0); MEAN CORPUSCULAR HGB CONC 33 g/dl (31.0-36.0); MEAN CORPUSCULAR VOLUME 93 fL (82-100); MONOCYTES # (AUTO) 1.3 K/uL (0.1-1.30); MONOCYTES % (AUTO) 5.8 % (2.0-12.0); NEUTROPHILS # (AUTO) 20.1 K/uL (1.8-8.9); NEUTROPHILS % (AUTO) 89.1 % (43.0-81.0); PLATELET COUNT (AUTO) 152 K/uL (150-450); RED BLOOD CELL COUNT(AUTO) 4.16 MIL/uL (4.0-5.2); RED CELL DISTRIBUTION WIDTH 14.2 % (11.5-15.0); WHITE BLOOD COUNT (AUTO) 22.5 K/uL (4.3-11.0)
[2024-08-05 04:40] LABS: CALCIUM, SERUM 8.2 mg/dL (8.5-10.1); CREATININE 2.4 mg/dL (0.6-1.3); MAGNESIUM 2.4 mg/dL (1.8-2.4); POTASSIUM 5.1 mmol/L (3.5-5.1)
[2024-08-05] MEDS ORDERED: DEXTROSE 50%-WATER 50 ML DISP.SYRIN ONE (04:48)
[2024-08-05] MEDS: DEXTROSE 50%-WATER 50 ML DISP.SYRIN IVP PRN (04:55)
[2024-08-05 04:56] LABS: BASOPHILS % (MANUAL) 0 % (0.0-2.0); EOSINOPHILS % (MANUAL) 0 % (0-4); LYMPHOCYTES % (MANUAL) 5 % (16-48); MONOCYTES % (MANUAL) 7 % (0-11.0); NEUTROPHILS % (MANUAL) 88 (42-76); PLATELET ESTIMATE ADEQUATE
[2024-08-05] MEDS: SODIUM BICARBONATE SYR 50 MEQ/50 ML DISP.SYRIN IV ONE (05:12)
[2024-08-05 05:18] LABS: ABG BASE EXCESS -19.9 mmol/L (-2.0-3.0); ABG OXYGEN SATURATION 94.5 % (94.0-98.0); ABG PCO2 25.7 mmHg (32.0-45.0); ABG PH 7.112 (7.350-7.450); ABG PO2 92.8 mmHg (83.0-108.0); ABG TOTAL HEMOGLOBIN 14.3 G/dL (12.0-16.0); COHb 0.6 % (0.5-1.5); MetHb 0.2 % (0.0-1.5); O2Hb 93.7 % (94.0-97.0); PEEP,BG 10 cm H2O; SITE, ABG RIGHT RADIAL; VT, ABG 500 mL
[2024-08-05] MEDS: Sodium Bicarbonate 100 MEQ in IV D5W 1,000 ML IV PRN (05:29)
[2024-08-05] MEDS: SODIUM BICARBONATE SYR 50 MEQ/50 ML DISP.SYRIN ONE (06:21)
[2024-08-05 08:04] LABS: ABG BASE EXCESS -14.9 mmol/L (-2.0-3.0); ABG OXYGEN SATURATION 89.3 % (94.0-98.0); ABG PCO2 24.1 mmHg (32.0-45.0); ABG PH 7.253 (7.350-7.450); ABG PO2 63.9 mmHg (83.0-108.0); ABG TOTAL HEMOGLOBIN 13.2 G/dL (12.0-16.0); COHb 0.3 % (0.5-1.5); MetHb 0.1 % (0.0-1.5); O2Hb 88.9 % (94.0-97.0); PEEP,BG 10 cm H2O; SITE, ABG LEFT RADIAL; VT, ABG 550 mL
[2024-08-05] MEDS: PIPERACILLIN /TAZOBACTAM 3.375 G in IV D5W 100 ML IV SCH (08:12)
[2024-08-05] MEDS: Z GUARD REMEDY 4 OZ OINT TP PRN (08:12)
[2024-08-05] MEDS: ENOXAPARIN SODIUM 100 MG/ML DISP.SYRIN SQ SCH (08:47)
[2024-08-05] MEDS ORDERED: ENOXAPARIN SODIUM 100 MG/ML DISP.SYRIN SQ SCH (09:00)
[2024-08-05] MEDS: ACETAMINOPHEN 650 MG/20.3 ML UDC NG PRN (17:10)
[2024-08-05 17:20] LABS: APPEARANCE,URINE CLOUDY (CLEAR); BILIRUBIN,URINE 1+ (NEGATIVE); BLOOD, URINE 3+ Ery/uL (NEGATIVE); COLOR,URINE YELLOW (YELLOW); KETONES,URINE TRACE mg/dL (NEGATIVE); LEUKOCYTE ESTERASE ,URINE NEGATIVE (NEGATIVE); NITRITE, URINE NEGATIVE (NEGATIVE); PH,URINE 5.5 (5.0-8.0); PROTEIN,URINE 3+ mg/dl (NEGATIVE); UGLUCOSE NEGATIVE (NEGATIVE)
[2024-08-05 17:33] LABS: RBC,URINE 51-80 /HPF (0-2); WBC,URINE 0-2 /HPF (0-3)
[2024-08-05] MEDS: Sodium Bicarbonate 100 MEQ in IV D5W 1,000 ML IV SCH (17:33)
[2024-08-05 17:34] LABS: URINE AMORPHOUS URATE Moderate /HPF (None Seen)
[2024-08-05 17:35] LABS: ADD URINE CULTURE NO; BACTERIA,URINE RARE /HPF (None Seen); SQUAMOUS EPITHELIAL CELL,UR 0-2 /HPF (None Seen)
[2024-08-05 17:52] LABS: CREATININE, URINE 100.2 MG/DL (30.0-125.0); URINE SODIUM, RANDOM 24 mmol/l (40-220)
[2024-08-05] MEDS ORDERED: Sodium Bicarbonate 100 MEQ in IV D5W 1,000 ML IV SCH (18:00)
[2024-08-05 18:53] LABS: EOSINOPHIL,URINE RARE
[2024-08-05 23:31] LABS: BASOPHILS % (AUTO) 0.1 % (0.0-2.0); EOSINOPHILS # (AUTO) 0.1 K/uL (0.0-0.7); EOSINOPHILS % (AUTO) 0.4 % (0.0-6.0); HEMATOCRIT 34 % (33-45); HEMOGLOBIN 11.7 g/dL (11.5-14.8); LYMPHOCYTES # (AUTO) 1.3 K/uL (0.8-4.8); LYMPHOCYTES % (AUTO) 9.8 % (20.0-44.0); MEAN CORPUSCULAR HEMOGLOBIN 32 PG (26.0-33.0); MEAN CORPUSCULAR HGB CONC 35 g/dl (31.0-36.0); MEAN CORPUSCULAR VOLUME 90 fL (82-100); MONOCYTES # (AUTO) 0.4 K/uL (0.1-1.30); MONOCYTES % (AUTO) 2.6 % (2.0-12.0); NEUTROPHILS # (AUTO) 11.8 K/uL (1.8-8.9); NEUTROPHILS % (AUTO) 87.1 % (43.0-81.0); PLATELET COUNT (AUTO) 103 K/uL (150-450); RED BLOOD CELL COUNT(AUTO) 3.71 MIL/uL (4.0-5.2); WHITE BLOOD COUNT (AUTO) 13.5 K/uL (4.3-11.0)
[2024-08-05 23:49] LABS: CALCIUM, SERUM 7.2 mg/dL (8.5-10.1); MAGNESIUM 1.8 mg/dL (1.8-2.4); POTASSIUM 3.7 mmol/L (3.5-5.1)
[2024-08-06] VITALS (91 sets, daily range): BP systolic 65–157; BP diastolic 31–61; TEMP 98.5–99.7; O2SAT 94–100
[2024-08-06 05:56] LABS: CREATINE KINASE, TOTAL 971 U/L (26-192); HEMOGLOBIN 11.4 g/dL (11.5-14.8); MEAN CORPUSCULAR HEMOGLOBIN 32 PG (26.0-33.0); MEAN CORPUSCULAR HGB CONC 35 g/dl (31.0-36.0); MEAN CORPUSCULAR VOLUME 91 fL (82-100); MONOCYTES # (AUTO) 0.3 K/uL (0.1-1.30); WHITE BLOOD COUNT (AUTO) 11.6 K/uL (4.3-11.0)
[2024-08-06 06:03] LABS: ALANINE AMINOTRANSFERASE 2833 U/L (12-78); ALBUMIN 2.7 g/dL (3.4-5.0); ALKALINE PHOSPHATASE 183 U/L (46-116); BILIRUBIN,TOTAL 2.3 mg/dL (0.2-1.0); CALCIUM, SERUM 6.9 mg/dL (8.5-10.1); CARBON DIOXIDE 22 mmol/L (21-32); CHLORIDE 103 mmol/L (98-107); CREATININE 4.3 mg/dL (0.6-1.3); GLUCOSE 93 mg/dL (74-106); MAGNESIUM 1.7 mg/dL (1.8-2.4); PHOSPHORUS 4.8 mg/dL (2.5-4.9); POTASSIUM 3.6 mmol/L (3.5-5.1); SODIUM SERUM 143 mmol/L (136-145); TOTAL PROTEIN, SERUM 5.6 g/dL (6.4-8.2); UREA NITROGEN, BLOOD 44 mg/dL (7-18)
[2024-08-06 06:08] LABS: BASOPHILS # (AUTO) 0.1 K/uL (0.0-0.2); BASOPHILS % (AUTO) 0.9 % (0.0-2.0); EOSINOPHILS % (AUTO) 0.2 % (0.0-6.0); HEMATOCRIT 32 % (33-45); LYMPHOCYTES # (AUTO) 3.5 K/uL (0.8-4.8); LYMPHOCYTES % (AUTO) 30.2 % (20.0-44.0); MONOCYTES % (AUTO) 2.5 % (2.0-12.0); NEUTROPHILS # (AUTO) 7.7 K/uL (1.8-8.9); NEUTROPHILS % (AUTO) 66.2 % (43.0-81.0); PLATELET COUNT (AUTO) 93 K/uL (150-450); RED BLOOD CELL COUNT(AUTO) 3.57 MIL/uL (4.0-5.2); RED CELL DISTRIBUTION WIDTH 13.9 % (11.5-15.0)
[2024-08-06 08:15] LABS: LYMPHOCYTES % (MANUAL) 20 % (16-48); MONOCYTES % (MANUAL) 1 % (0-11.0); NEUTROPHILS % (MANUAL) 79 (42-76); PLATELET ESTIMATE DECREASED
[2024-08-06 08:16] LABS: ANISOCYTOSIS 1+
[2024-08-06 09:14] LABS: ABG BASE EXCESS -6.2 mmol/L (-2.0-3.0); ABG OXYGEN SATURATION 97.6 % (94.0-98.0); ABG PCO2 24.2 mmHg (32.0-45.0); ABG PH 7.446 (7.350-7.450); ABG PO2 117.6 mmHg (83.0-108.0); ABG TOTAL HEMOGLOBIN 11.8 G/dL (12.0-16.0); COHb 0.3 % (0.5-1.5); MetHb 0.3 % (0.0-1.5); PEEP,BG 10 cm H2O; SITE, ABG RIGHT RADIAL; VT, ABG 550 mL
[2024-08-06 10:19] LABS: THYROID STIMULATING HORMONE 1.8 uIU/mL (0.358-3.74)
[2024-08-06] MEDS ORDERED: CALCIUM CHLORIDE 1,000 MG/10 ML DISP.SYRIN IV ONE (15:15)
[2024-08-06] MEDS: NEPRO 1,000 ML BOTTLE GT PRN (17:07)
[2024-08-06] MEDS ORDERED: IV MANNITOL 20% 250 ML IV SCH (17:30)
[2024-08-06] MEDS: IV MANNITOL 20% 250 ML in PREMIX 1 EA IV SCH (19:15)
[2024-08-06] MEDS: IV NS 0.9% 250 ML IV PRN (19:45)
[2024-08-07] VITALS (74 sets, daily range): BP systolic 82–139; BP diastolic 36–70; TEMP 97–98.6; O2SAT 90–100
[2024-08-07] MEDS: PIPERACILLIN /TAZOBACTAM 2.25 G in IV D5W 50 ML IV SCH
[2024-08-07] MEDS: AMANTADINE HCL 100 MG CAPSULE PO SCH (08:40)
[2024-08-07 10:44] LABS: ABG BASE EXCESS -4.6 mmol/L (-2.0-3.0); ABG OXYGEN SATURATION 92.4 % (94.0-98.0); ABG PCO2 35.8 mmHg (32.0-45.0); ABG PH 7.368 (7.350-7.450); ABG PO2 71.2 mmHg (83.0-108.0); ABG TOTAL HEMOGLOBIN 10.6 G/dL (12.0-16.0); COHb 0.3 % (0.5-1.5); MetHb 0.3 % (0.0-1.5); O2Hb 91.8 % (94.0-97.0); PEEP,BG 10 cm H2O; SITE, ABG RIGHT BRACHIAL; VT, ABG 500 mL
[2024-08-08] VITALS (43 sets, daily range): BP systolic 91–139; BP diastolic 35–84; TEMP 98.4–98.8; O2SAT 89–96
[2024-08-08 07:10] LABS: FOLIC ACID > 20.0 ng/mL (>3.0)
[2024-08-08 08:11] LABS: ALBUMIN 2.1 g/dL (3.4-5.0); ALKALINE PHOSPHATASE 301 U/L (46-116); ASPARTATE AMINOTRANSFERASE > 1000 U/L (15-37); BILIRUBIN,TOTAL 5.6 mg/dL (0.2-1.0); CALCIUM, SERUM 6.9 mg/dL (8.5-10.1); CARBON DIOXIDE 21 mmol/L (21-32); CHLORIDE 91 mmol/L (98-107); CREATININE 7.3 mg/dL (0.6-1.3); GLUCOSE 107 mg/dL (74-106); MAGNESIUM 1.9 mg/dL (1.8-2.4); PHOSPHORUS 6.1 mg/dL (2.5-4.9); POTASSIUM 5.2 mmol/L (3.5-5.1); SODIUM SERUM 129 mmol/L (136-145); UREA NITROGEN, BLOOD 75 mg/dL (7-18)
[2024-08-08 09:37] LABS: ALANINE AMINOTRANSFERASE > 1000 U/L (12-78)
[2024-08-08 12:50] LABS: INR 1.6 (0.91-1.10); PROTHROMBIN TIME 16.4 SECS (9.2-11.1)
[2024-08-08 13:06] LABS: *SPE ALBUMIN 2.7 g/dL (2.9-4.4); *SPE ALPHA-1-GLOBULIN 0.2 g/dL (0.0-0.4); *SPE ALPHA-2-GLOBULIN 0.5 g/dL (0.4-1.0); *SPE BETA GLOBULIN 1.1 g/dL (0.7-1.3); *SPE GLOBULIN, TOTAL 2.7 g/dL (2.2-3.9); *SPE M-SPIKE Not Observed g/dL (Not Observed); *SPE PROTEIN TOTAL 5.4 g/dL (6.0-8.5); *SPEGAMMA GLOBULIN 0.8 g/dL (0.4-1.8)
[2024-08-08 13:57] LABS: ASPARTATE AMINOTRANSFERASE > 1000 U/L (15-37)
[2024-08-09] VITALS (54 sets, daily range): BP systolic 69–139; BP diastolic 36–71; TEMP 97.8–99.7; O2SAT 75–97
[2024-08-09 08:37] LABS: ABG BASE EXCESS -1.8 mmol/L (-2.0-3.0); ABG OXYGEN SATURATION 97.5 % (94.0-98.0); ABG PCO2 46.3 mmHg (32.0-45.0); ABG PH 7.335 (7.350-7.450); ABG PO2 113.2 mmHg (83.0-108.0); ABG TOTAL HEMOGLOBIN 10.4 G/dL (12.0-16.0); COHb 0.3 % (0.5-1.5); MetHb 0.3 % (0.0-1.5); O2Hb 96.9 % (94.0-97.0); PEEP,BG 10 cm H2O; SITE, ABG LEFT RADIAL; VT, ABG 500 mL
[2024-08-09] MEDS ORDERED: LACTULOSE 10 G/15 ML UDC (PYXIS) PO PRN (10:30)
[2024-08-09] MEDS: PRECEDEX 400 MCG/100 ML BOTTLE 100 ML IV PRN (12:39)
[2024-08-09 13:01] LABS: BASOPHILS % (AUTO) 0.3 % (0.0-2.0); EOSINOPHILS # (AUTO) 0.1 K/uL (0.0-0.7); EOSINOPHILS % (AUTO) 0.3 % (0.0-6.0); HEMATOCRIT 29 % (33-45); HEMOGLOBIN 9.6 g/dL (11.5-14.8); LYMPHOCYTES # (AUTO) 0.7 K/uL (0.8-4.8); LYMPHOCYTES % (AUTO) 4.6 % (20.0-44.0); MEAN CORPUSCULAR HEMOGLOBIN 31 PG (26.0-33.0); MEAN CORPUSCULAR HGB CONC 33 g/dl (31.0-36.0); MEAN CORPUSCULAR VOLUME 95 fL (82-100); MONOCYTES # (AUTO) 1.4 K/uL (0.1-1.30); MONOCYTES % (AUTO) 8.8 % (2.0-12.0); NEUTROPHILS # (AUTO) 13.4 K/uL (1.8-8.9); PLATELET COUNT (AUTO) 76 K/uL (150-450); RED BLOOD CELL COUNT(AUTO) 3.07 MIL/uL (4.0-5.2); WHITE BLOOD COUNT (AUTO) 15.6 K/uL (4.3-11.0)
[2024-08-09 13:19] LABS: ALBUMIN 2.1 g/dL (3.4-5.0); BILIRUBIN,TOTAL 7.3 mg/dL (0.2-1.0); CALCIUM, SERUM 7.5 mg/dL (8.5-10.1); MAGNESIUM 2.2 mg/dL (1.8-2.4); PHOSPHORUS 7.2 mg/dL (2.5-4.9); POTASSIUM 4.8 mmol/L (3.5-5.1); TOTAL PROTEIN, SERUM 5.4 g/dL (6.4-8.2)
[2024-08-09 13:52] LABS: LYMPHOCYTES % (MANUAL) 6 % (16-48); MONOCYTES % (MANUAL) 10 % (0-11.0); MYELOCYTES % 1 % (0-0); NEUTROPHILS % (MANUAL) 83 (42-76); PLATELET ESTIMATE DECREASED
[2024-08-09] MEDS: ACETAMINOPHEN 650 MG/20.3 ML UDC NG PRN (23:02)
[2024-08-10] VITALS (58 sets, daily range): BP systolic 56–133; BP diastolic 28–47; TEMP 98.6–99.7; O2SAT 84–97
[2024-08-10 04:06] LABS: HBSAG SCREEN Negative (Negative); HEPATITIS A AB, IgM Negative (Negative); HEPATITIS B CORE AB, IgM Negative (Negative); HEPATITIS B CORE AB, TOTAL Negative (Negative); HEPATITIS B SURFACE AB Non Reactive (.)
[2024-08-10 05:12] LABS: BASOPHILS # (AUTO) 0.1 K/uL (0.0-0.2); BASOPHILS % (AUTO) 0.4 % (0.0-2.0); EOSINOPHILS # (AUTO) 0.3 K/uL (0.0-0.7); EOSINOPHILS % (AUTO) 2.2 % (0.0-6.0); HEMATOCRIT 26 % (33-45); HEMOGLOBIN 8.9 g/dL (11.5-14.8); LYMPHOCYTES # (AUTO) 1.3 K/uL (0.8-4.8); LYMPHOCYTES % (AUTO) 9.8 % (20.0-44.0); MEAN CORPUSCULAR HEMOGLOBIN 32 PG (26.0-33.0); MEAN CORPUSCULAR HGB CONC 34 g/dl (31.0-36.0); MEAN CORPUSCULAR VOLUME 94 fL (82-100); MONOCYTES # (AUTO) 1.3 K/uL (0.1-1.30); MONOCYTES % (AUTO) 9.7 % (2.0-12.0); NEUTROPHILS # (AUTO) 10.2 K/uL (1.8-8.9); NEUTROPHILS % (AUTO) 77.9 % (43.0-81.0); PLATELET COUNT (AUTO) 61 K/uL (150-450); RED BLOOD CELL COUNT(AUTO) 2.74 MIL/uL (4.0-5.2); WHITE BLOOD COUNT (AUTO) 13.2 K/uL (4.3-11.0)
[2024-08-10 05:24] LABS: CALCIUM, SERUM 7.6 mg/dL (8.5-10.1); CREATININE 5.5 mg/dL (0.6-1.3)
[2024-08-10 05:42] LABS: ALBUMIN 1.8 g/dL (3.4-5.0); BILIRUBIN,DIRECT 6.3 mg/dL (0.0-0.2)
[2024-08-10 05:52] LABS: ANISOCYTOSIS 1+; BAND % (MANUAL) 3 % (0.0-5.0); BASOPHILS % (MANUAL) 0 % (0.0-2.0); EOSINOPHILS % (MANUAL) 2 % (0-4); LYMPHOCYTES % (MANUAL) 11 % (16-48); MONOCYTES % (MANUAL) 5 % (0-11.0); NEUTROPHILS % (MANUAL) 79 (42-76); PLATELET ESTIMATE DECREASED
[2024-08-10] MEDS ORDERED: NOREPINEPHRINE 8MG/250ML RTU 250 ML IV ONE (06:04)
[2024-08-10 07:11] LABS: METHYLMALONIC ACID 677 nmol/L (0-378)
[2024-08-10] MEDS ORDERED: ENOXAPARIN SODIUM 100 MG/ML DISP.SYRIN SQ SCH (09:00)
[2024-08-10] MEDS ORDERED: NOREPINEPHRINE 32 MG in IV NS 0.9% 218 ML IV PRN (11:00)
[2024-08-10] MEDS: NOREPINEPHRINE 32 MG in IV NS 0.9% 218 ML IV PRN (14:01)
[2024-08-11] VITALS (62 sets, daily range): BP systolic 0–102; BP diastolic 0–75; TEMP 101.2–103.1; O2SAT 89–98
[2024-08-11 05:34] LABS: BASOPHILS # (AUTO) 0.1 K/uL (0.0-0.2); BASOPHILS % (AUTO) 0.3 % (0.0-2.0); EOSINOPHILS # (AUTO) 0.5 K/uL (0.0-0.7); EOSINOPHILS % (AUTO) 2.6 % (0.0-6.0); HEMATOCRIT 29 % (33-45); HEMOGLOBIN 9.4 g/dL (11.5-14.8); LYMPHOCYTES # (AUTO) 2.5 K/uL (0.8-4.8); LYMPHOCYTES % (AUTO) 14.5 % (20.0-44.0); MEAN CORPUSCULAR HEMOGLOBIN 31 PG (26.0-33.0); MEAN CORPUSCULAR HGB CONC 32 g/dl (31.0-36.0); MEAN CORPUSCULAR VOLUME 96 fL (82-100); MONOCYTES # (AUTO) 2.1 K/uL (0.1-1.30); MONOCYTES % (AUTO) 11.8 % (2.0-12.0); NEUTROPHILS # (AUTO) 12.5 K/uL (1.8-8.9); NEUTROPHILS % (AUTO) 70.8 % (43.0-81.0); PLATELET COUNT (AUTO) 58 K/uL (150-450); RED CELL DISTRIBUTION WIDTH 16.5 % (11.5-15.0); WHITE BLOOD COUNT (AUTO) 17.6 K/uL (4.3-11.0)
[2024-08-11] MEDS ORDERED: DEXTROSE 50%-WATER 50 ML DISP.SYRIN IVP PRN (06:30)
[2024-08-11 06:38] LABS: BASOPHILS % (MANUAL) 0 % (0.0-2.0); EOSINOPHILS % (MANUAL) 4 % (0-4); LYMPHOCYTES % (MANUAL) 22 % (16-48); MONOCYTES % (MANUAL) 8 % (0-11.0); NEUTROPHILS % (MANUAL) 66 (42-76)
[2024-08-11 06:39] LABS: ANISOCYTOSIS 1+; PLATELET ESTIMATE DECREASED; STOMATOCYTES 1+
[2024-08-11] MEDS: PHENYLEPHRINE 50 MG in IV NS 0.9% 245 ML IV PRN (07:43)
[2024-08-11] MEDS ORDERED: PHENYLEPHRINE 100 MG in IV NS 0.9% 240 ML IV PRN (08:30)
[2024-08-11 08:33] LABS: ABG BASE EXCESS -9.8 mmol/L (-2.0-3.0); ABG OXYGEN SATURATION 92.4 % (94.0-98.0); ABG PCO2 53.9 mmHg (32.0-45.0); ABG PH 7.159 (7.350-7.450); ABG PO2 74.4 mmHg (83.0-108.0); ABG TOTAL HEMOGLOBIN 10.3 G/dL (12.0-16.0); COHb 0.5 % (0.5-1.5); MetHb 0.1 % (0.0-1.5); O2Hb 91.8 % (94.0-97.0); PEEP,BG 8 cm H2O; SITE, ABG LEFT RADIAL; VT, ABG 500 mL
[2024-08-11] MEDS: VASOPRESSIN INJ 40 UNIT in IV NS 0.9% 38 ML IV PRN (09:04)
[2024-08-11] MEDS: PHENYLEPHRINE 100 MG in IV NS 0.9% 240 ML IV PRN (10:38)
[2024-08-11 10:39] LABS: CREATININE 5.6 mg/dL (0.6-1.3); POTASSIUM 4.5 mmol/L (3.5-5.1)
[2024-08-11] MEDS ORDERED: DEXTROSE 50%-WATER 50 ML DISP.SYRIN IV PRN (11:30)
[2024-08-11] MEDS ORDERED: INSULIN REGULAR, HUMAN 100 UNIT/ML 3 ML VIAL SQ PRN (11:30)
[2024-08-11] MEDS: BLOOD SUGAR DIAGNOSTIC 1 EACH STRIP IN SCH ×2 (11:33→11:35)
[2024-08-11] MEDS: Sodium Chloride 154 MEQ in IV 10% DEXTROSE 1,000 ML IV PRN (11:42)
[2024-08-11] MEDS: HYDROCORTISONE SOD SUCCINATE 100 MG/2 ML VIAL IV SCH (11:48)
[2024-08-11] MEDS ORDERED: VANCOMYCIN POST DIALYSIS 500MG IV PRN (15:00)
[2024-08-11] MEDS: VANCOMYCIN 1 GM in IV D5W 250 ML IV ONE (15:17)
== END 2024-08-11 19:02 | DRG 130 ==
LOC: ER 13:53 → ICU 20:49
PROVIDERS: ADMIT Internal Medicine; ATTEND Nurse Practitioner Family
PROC: 5A1955Z Respiratory Ventilation, Greater than 96 Consecutive Hours (ICD-10-PCS; principal; 2024-08-04)
PROC: 0BH18EZ Insertion of Endotracheal Airway into Trachea, Via Natural or Artificial Opening Endoscopic (ICD-10-PCS; 2024-08-04)
PROC: 5A12012 Performance of Cardiac Output, Single, Manual (ICD-10-PCS; 2024-08-04)
PROC: 02HV33Z Insertion of Infusion Device into Superior Vena Cava, Percutaneous Approach (ICD-10-PCS; 2024-08-04)
PROC: B548ZZA Ultrasonography of Superior Vena Cava, Guidance (ICD-10-PCS; 2024-08-04)
PROC: 06HY33Z Insertion of Infusion Device into Lower Vein, Percutaneous Approach (ICD-10-PCS; 2024-08-08)
PROC: 5A1D70Z Performance of Urinary Filtration, Intermittent, Less than 6 Hours Per Day (ICD-10-PCS; 2024-08-08)
DX: J96.01 Acute respiratory failure with hypoxia (principal); I46.9 Cardiac arrest, cause unspecified; K72.00 Acute and subacute hepatic failure without coma; N17.0 Acute kidney failure with tubular necrosis; R65.21 Severe sepsis with septic shock; G93.41 Metabolic encephalopathy; A41.9 Sepsis, unspecified organism; E11.43 Type 2 diabetes mellitus with diabetic autonomic (poly)neuropathy; K31.84 Gastroparesis; D64.9 Anemia, unspecified; I21.4 Non-ST elevation (NSTEMI) myocardial infarction; I11.0 Hypertensive heart disease with heart failure; I49.01 Ventricular fibrillation; E66.01 Morbid (severe) obesity due to excess calories; E87.1 Hypo-osmolality and hyponatremia; E87.20 Acidosis, unspecified; G93.1 Anoxic brain damage, not elsewhere classified; I27.20 Pulmonary hypertension, unspecified; I48.0 Paroxysmal atrial fibrillation; R13.10 Dysphagia, unspecified; Z68.34 Body mass index [BMI] 34.0-34.9, adult; Z79.84 Long term (current) use of oral hypoglycemic drugs; Z95.1 Presence of aortocoronary bypass graft; Z98.61 Coronary angioplasty status; Z90.49 Acquired absence of other specified parts of digestive tract; M06.9 Rheumatoid arthritis, unspecified; Z79.01 Long term (current) use of anticoagulants; Z66 Do not resuscitate; I25.10 Atherosclerotic heart disease of native coronary artery without angina pectoris; G47.33 Obstructive sleep apnea (adult) (pediatric); I50.30 Unspecified diastolic (congestive) heart failure; R74.01 Elevation of levels of liver transaminase levels; E87.6 Hypokalemia; Z87.74 Personal history of (corrected) congenital malformations of heart and circulatory system
CPT/HCPCS: 31720; 36415; 36600; 38221; 71045-TC; 76770-TC; 80048-TC; 80053-TC; 80076-TC; 81001; 82140-TC; 82550-TC; 82553; 82570-TC; 82607-TC; 82803-TC; 82962-TC; 83690-TC; 83735-TC; 83880; 83921; 84100-TC; 84132-TC; 84155; 84165; 84300-TC; 84425; 84443-TC; 84478-TC; 84484-TC; 85025-TC; 85730-TC; 86704; 86706; 87040-TC; 87081-TC; 87086-TC; 87340; 90935-TC; 93307-TC; 94002-TC; 94003-TC; 94799-TC; 95819-TC; 99082-TC; A4216; A4223; G0378; J0171; J0282; J1650; J1720; J1815; J2150; J2543; J3370; J3475; J3490; J7030; J7042; J7050; J7060; J7070